=== PATIENT | female | born 1955 | race Caucasian/White ===

== ENCOUNTER 2021-06-24 00:04 | Day surgery (SDC) | payer OTHER, SELFPAY ==
[2021-06-14 14:46] VITALS: BMI 38.6
[2021-06-24 07:10] VITALS: BP 128/56; PULSE 67; RESP 18; TEMP 36.3; O2SAT 97; BMI 38.1
[2021-06-24] MEDS: LACTATED RINGERS 1,000 ML 150 ML IV CONT (07:18)
--- NOTE | 2021-06-24 07:53 | WPDGICN ---
Assessment and Plan Assessment and plan (1) Encounter for screening colonoscopy: Code(s): Z12.11 - Encounter for screening for malignant neoplasm of colon Status: Acute Assessment and Plan: Patient presents for screening colonoscopy. She appears to be at average risk for colon polyps. Further recommendations will be given after endoscopy. GI Consult Note Consult date/time: 06/24/21 07:53 HPI: Yari Galvan is a 65 year old female Presents for screening colonoscopy. Patient's current weight appetite and bowel movements are normal. She denies abdominal pain. She has had no bleeding. Family history is noncontributory. She desires neoplasia screening. Review of Systems Review of Systems: All systems reviewed & are unremarkable except as noted in HPI and below PMFSH Past Medical History Medical History (Updated 06/24/21 @ 07:54 by Devan Luna MD) Body mass index (bmi) 39.0-39.9, adult (04/26/18) Elevated blood pressure reading in office without diagnosis of hypertension Hereditary spherocytosis Family History Family History Father Family history of emphysema Social History Social History Smoking status: Never smoker Alcohol intake: never Substance use: never Substance use type: does not use Living arrangements: with family Gender identity (if verbalized by the patient): Female Sexual Orientation (if Verbalized by the Patient): Straight or Heterosexual Spiritual care concerns: No Meds Home Medications and Allergies Home Medications Medication Instructions Recorded Confirmed Type modafinil 200 mg tablet 200 mg PO BID 30 Days #60 tablet 06/08/21 06/14/21 Rx Allergies Allergy/AdvReac Type Severity Reaction Status Date / Time clindamycin Allergy C Diff Verified 06/14/21 14:45 Vital Signs Vital Signs - 24 hr 06/24/21 07:10 Temperature 97.4 F L Pulse Rate 67 Respiratory Rate 18 Blood Pressure 128/56 L Pulse Oximetry 97 Exam Narrative: Physical exam reveals patient be alert. Vital signs stable. HEENT exam is unremarkable. Patient is anicteric. Lungs are clear to auscultation and percussion. Heart is without murmur or extra sounds. Abdominal exam bowel sounds are present soft nontender with no hepatosplenomegaly. Digital external rectal exam is normal.
--- NOTE | 2021-06-24 07:53 | WPDANESEPPF ---
Anes - Initial Pre Proc Eval Procedure: Operation Date: 06/24/21 08:00 Proposed Procedures p Screening Colonoscopy - Devan Luna MD Date/Time: 06/24/21 07:53 Surgeon: Devan Luna MD Pre Op Diagnosis: neoplasm screening Patient Data Age: 65 Gender: F Height: 1.68 m Weight: 107.1 kg Last Vital Signs Temp 97.4 F L 06/24/21 07:10 Pulse 67 06/24/21 07:10 Resp 18 06/24/21 07:10 BP 128/56 L 06/24/21 07:10 Pulse Ox 97 06/24/21 07:10 Allergies Allergy/AdvReac Type Severity Reaction Status Date / Time clindamycin Allergy C Diff Verified 06/14/21 14:45 Home Medications Medication Instructions Recorded Confirmed Type modafinil 200 mg tablet 200 mg PO BID 30 Days #60 tablet 06/08/21 06/14/21 Rx Patient hx anesthesia problems: none Family hx anesthesia problems: none Results Review: All pre-operative results and documents have been reviewed as part of the pre-operative evaluation. [facility] Past Medical History Medical History (Updated 06/24/21 @ 07:54 by Devan Luna MD) Body mass index (bmi) 39.0-39.9, adult (04/26/18) Elevated blood pressure reading in office without diagnosis of hypertension Hereditary spherocytosis Family History Family History Father Family history of emphysema Social History Social History Smoking status: Never smoker Alcohol intake: never Substance use: never Substance use type: does not use Living arrangements: with family Gender identity (if verbalized by the patient): Female Sexual Orientation (if Verbalized by the Patient): Straight or Heterosexual Spiritual care concerns: No Anes - Eval Final PreProcedure Day of Procedure 06/24/21 07:53 Patient weight: obese Heart: regular rate and rhythm Lungs: clear to auscultation Airway: Mallampati scale class III Neurological: alert and oriented Last oral intake: >/= 8 hours ASA classification: II Emergent: no Anesthetic plan: proceed Anesthesia type and monitoring: general GIVS and standard monitoring Results Review: All pre-operative results and documents have been reviewed as part of the pre-operative evaluation. Informed Consent: The patient's anesthetic plan and its attendant risks and benefits were discussed with the patient/family/POA. Questions were solicited and answers provided to the satisfaction of the patient/family/POA.
[2021-06-24 08:18] VITALS: BP 122/69; PULSE 61; RESP 14; O2SAT 97
[2021-06-24 08:28] VITALS: BP 139/76; PULSE 72; RESP 23; O2SAT 100
[2021-06-24 08:38] VITALS: BP 142/79; PULSE 67; RESP 22; O2SAT 99
== END 2021-06-24 08:45 | disposition home or self-care (01) ==
PROVIDERS: PCP Nurse Practitioner Family; Visit Provider Internal Medicine Gastroenterology
PROC: 0DJD8ZZ Inspection of Lower Intestinal Tract, Via Natural or Artificial Opening Endoscopic (ICD-10-PCS; CPT 45378; principal; 2021-06-24 08:00)
DX: Z12.11 Encounter for screening for malignant neoplasm of colon (principal); K57.30 Diverticulosis of large intestine without perforation or abscess without bleeding; D58.0 Hereditary spherocytosis; E66.9 Obesity, unspecified; Z68.38 Body mass index [BMI] 38.0-38.9, adult
CPT/HCPCS: 45378; J2704; J7120

== ENCOUNTER 2022-07-11 22:02 | Inpatient (IN) | payer OTHER, SELFPAY ==
--- NOTE | ~2022-07-11 | XR_ITS ---
EXAMINATION: XR chest 1V portable Exam Date/Time: 07/11/2022 22:50 BREAKER HAND HISTORY: CP Comparison: 03/10/2010. RESULT: Lines, tubes, and devices: None. Lungs and pleura: Mild senescent change. Streaky bibasilar opacities likely representing atelectasis . Cardiomediastinal silhouette: Stable. Other: No acute osseous or upper abdominal finding. IMPRESSION: No acute cardiopulmonary process. Reviewed, dictated and finalized at location K. KER HAND
--- NOTE | ~2022-07-11 | CT_ITS ---
EXAMINATION: CTA chest PE protocol DATE: 07/12/2022 14:36 INDICATION: Chest pain TECHNIQUE: Computed tomography angiography (CTA) of the chest was performed with 100 mL Omnipaque-350 intravenous contrast timed to evaluate the pulmonary arteries. Coronal maximum intensity projection 3D-reconstructions were created by the technologist. The dose-length product (DLP) was 449.52 mGy-cm. Automated exposure control and iterative reconstruction technique were employed. COMPARISON: 04/13/2010 FINDINGS: The pulmonary arteries are well-opacified. No pulmonary embolism is identified. There is mi ld atelectasis. Cardiomegaly is noted. No pleural effusion or pneumothorax. There are minimal depende nt airspace opacities of the lower lobes. There is a small pericardial effusion. There is a small sli ding hiatal hernia. There is moderate thoracic spondylosis. IMPRESSION: 1. No pulmonary embolus identified. 2. Dependent airspace opacities of the lower lobes, consistent with atelectasis versus pneumonia. Reviewed, dictated and finalized at location L. MINER OPERATOR
[2022-07-11 22:03] VITALS: BP 138/71; PULSE 105; RESP 24; TEMP 36.4; O2SAT 96
--- NOTE | 2022-07-11 22:10 | ECG_ITS ---
Measurements Intervals [place] Rate: 116 P: IN: 0 QRS: 23 QRSD: 86 T: 37 QT: 312 QTc: 434 Interpretive Statements ATRIAL FIBRILLATION WITH RAPID VENTRICULAR RESPONSE SEPTAL MYOCARDIAL INFARCTION , PROBABLY OLD [40+ ms Q WAVE IN V1/V2] NO PREVIOUS ECG AVAILABLE FOR COMPARISON Electronically Signed On 07-12-2022 16:17:11 TREATING ENGINEER by Sonia Joya M.D.
[2022-07-11 22:26] VITALS: BP 97/69; PULSE 119; RESP 22; O2SAT 94
[2022-07-11 22:32] VITALS: O2SAT 97
[2022-07-11 22:43] LABS: Basophils Absolute Auto 0.1 K/mm3 (0.0-0.1); Basophils Percent Auto 0.7 % (0.2-1.2); Eosinophils Absolute Auto 0.5 K/mm3 (0-0.3); Hemoglobin 14.1 g/dL (12.0-15.0); Immature Granulocyte Absolute 0.05 K/mm3 (0.00-0.031); Immature Granulocyte Percent A 0.3 % (0-0.5); Immature Platelet Fraction Pct 5.3 % (0.9-11.2); Lymphocytes Absolute Auto 3.94 K/mm3 (0.9-3.2); Mean Corpuscular HGB Conc 34.4 g/dl (32-36); Mean Corpuscular Hemoglobin 31.1 pg (26-34); Mean Corpuscular Volume 90.5 fl (80-100); Monocytes Absolute Auto 1.1 K/mm3 (0.1-0.6); Neutrophils Absolute Auto 9.6 K/mm3 (1.3-6.7); Platelet Count Result 548 k/mm3 (150-375); Red Blood Count 4.53 M/mm3 (4.2-5.4); White Blood Count 15.2 K/mm3 (4.5-10.0)
[2022-07-11 22:53] LABS: INR 1.3; Prothrombin Time 15.6 Seconds (11.1-14.7)
[2022-07-11 22:54] LABS: Alanine Aminotransferase 33 U/L (6-35); Albumin Level 4.1 g/dL (3.5-5.1); Alkaline Phosphatase 131 U/L (38-126); Anion Gap 4 mmol/L (8-16); Aspartate Amino Transferase 39 U/L (14-36); Bilirubin,Total 0.7 mg/dL (0.2-1.3); Blood Urea Nitrogen 27 mg/dL (7-17); Calcium 9.1 mg/dL (8.4-10.2); Carbon Dioxide 28 mmol/L (22-30); Chloride 105 mmol/L (98-107); Estimated CRCL calculation 62 ml/min; Estimated Glomerular Filt Rate > 60; Glucose 134 mg/dL (65-110); Lipase 131 U/L (23-300); Partial Thromboplastin Time 28.3 SECONDS (22.3-36.8); Sodium 137 mmol/L (137-145)
[2022-07-11] MEDS: ASPIRIN 81 MG CHEWABLE TABLET 324 MG PO (22:57)
[2022-07-11 22:59] VITALS: BP 73/39; PULSE 105; RESP 24; O2SAT 92
[2022-07-11 23:03] LABS: Acanthocytes 2+ (NORMAL); Platelet Estimate Increased (Adequate)
[2022-07-11 23:04] LABS: Anisocytosis 1+ (NORMAL); Atypical Lymphocytes Present; Poikilocytosis 1+ (NORMAL); Schistocytes None Seen (NORMAL)
[2022-07-11] MEDS: SODIUM CHLORIDE 0.9% IV 1,000 ML 999 ML IV CONT (23:05)
[2022-07-11 23:06] VITALS: BP 94/67; PULSE 106; RESP 22; O2SAT 93
[2022-07-11 23:06] LABS: Troponin I < 0.012 ng/mL (0.000-0.034)
--- NOTE | 2022-07-11 23:07 | PC.NURSE ---
2257- oxygen saturation dropped to 89%, blood pressure dropped to 73/39. 2L nasal cannula applied 2303- oxygen increased to 3L nasal cannula, saturation maintaining 93-95%. Blood pressure 94/67. Order for metoprolol held d/t low blood pressure.
[2022-07-11 23:10] LABS: Magnesium 2.3 mg/dL (1.6-2.3)
[2022-07-11 23:44] LABS: Influenza A QL RT-PCR Negative (Negative); Influenza B QL RT-PCR Negative (Negative); SARS-CoV-2 RNA PCR Negative
[2022-07-11 23:48] VITALS: BP 109/64; PULSE 86; RESP 24; O2SAT 98
[2022-07-12] VITALS (28 sets, daily range): BP systolic 97–131; BP diastolic 60–88; PULSE 83–136; RESP 16–22; TEMP 36.4–36.6; O2SAT 91–97; BMI 37.5
[2022-07-12] MEDS: MORPHINE SULFATE (*CRX) 2 MG/ML INJ IV PUSH (00:25)
[2022-07-12 01:36] LABS: Troponin I < 0.012 ng/mL (0.000-0.034)
--- NOTE | 2022-07-12 02:21 | ED.GENADULT ---
HPI - General Adult General Chief complaint: Chest Pain Stated complaint: chest pain Time Seen by Provider: 07/11/22 22:28 History of Present Illness HPI narrative: Patient is a 67-year-old female who presents emerged department with chief complaint of chest pain shortness of breath and cough. The patient also reports that her she has history of A-fib and has noticed that her heart rate has been up a little bit. Related Data Allergies Allergy/AdvReac Type Severity Reaction Status Date / Time clindamycin Allergy C Diff Verified 05/11/22 15:28 Review of Systems Review of Systems: A 10 system review of systems was completed on the patient and is negative except for what is stated in the HPI. Nursing and ancillary documentation was reviewed. [facility] Past Medical History Medical History Body mass index (bmi) 39.0-39.9, adult (04/26/18) Elevated blood pressure reading in office without diagnosis of hypertension Hereditary spherocytosis Family History Family History Father Family history of emphysema Social History Social History Smoking status: Never smoker Alcohol intake: never Substance use: never Substance use type: does not use Lack of Transportation: No Lack of Food: Never True Current Housing: I Have Housing Concerned About Future Housing: No Difficulty Paying Gas/Electric Bills: No Difficulty Paying for Meds: No Currently Unemployed: No Education: High School Diploma/GED Difficulty w/ Childcare or Family Care: No Living arrangements: with family Gender identity (if verbalized by the patient): Female Sexual Orientation (if Verbalized by the Patient): Straight or Heterosexual Spiritual care concerns: No Exam Narrative: GENERAL: Well-appearing, well-nourished, and in no acute distress. HEAD: Normocephalic, atraumatic. EYES: PERRLA and EOMI. ENT: Nares clear, no rhinorrhea or epistaxis. Mucous membranes moist. NECK: Supple. CHEST: Clear to auscultation. No respiratory distress. HEART: Tachycardic irregularly irregular rate and rhythm. No murmur heard. Normal peripheral pulses. ABDOMEN: Soft, nontender, nondistended, normal active bowel sounds. EXTREMITIES: Normal range of motion. No edema. SKIN: Warm, dry, no rash. NEURO: No focal deficits. Alert and oriented x3. PSYCH: Normal mood and affect. Course Vital Signs Vital signs: Vital Signs Temperature 36.4 C 07/11/22 22:03 Pulse Rate 105 H 07/11/22 22:03 Respiratory Rate 24 H 07/11/22 22:03 Blood Pressure 138/71 07/11/22 22:03 Pulse Oximetry 96 07/11/22 22:03 Oxygen Delivery Room Air 07/11/22 22:03 Temperature 36.4 C 07/11/22 22:03 Pulse Rate 128 H 07/12/22 02:48 Respiratory Rate 20 07/12/22 02:42 Blood Pressure 97/62 L 07/12/22 02:42 Pulse Oximetry 96 07/12/22 02:42 Oxygen Delivery Room Air 07/12/22 00:30 Medical Decision Making MDM Narrative Medical decision making narrative: EKG is atrial fibrillation with a rate of [address] elevation or ST depression Patient had 2 negative sets of troponins in the emergency department the patient was negative for COVID flu laboratory studies showed a normal white blood cell count. Patient does report that she has had a significant cough its been nonproductive patient does have a white blood cell count of 15.2. Chest x-ray shows no focal infiltrate. Most likely patient's pain is secondary to pleurisy secondary to viral bronchitis. Patient also did have an elevated heart rate that was contributing to things with her atrial fibrillation. Prior to discharge the patient's heart rate jumped back up in the 120s with any kind of standing or ambulation. Patient was given additional metoprolol and further discussion with the family they were very concerned
--- NOTE | 2022-07-12 02:39 | PC.NURSE ---
Entered pt's room with discharge papers. Pt's heart rate on bleach plant operator shows rate between 120-130bpm. Dr. Taylor notified and instructed this RN to wait 5 minutes and reassess. Pt has no complaints at this time.
[2022-07-12] MEDS: METOPROLOL TARTRATE 25 MG TABLET PO ×3 (02:48→16:04)
[2022-07-12] MEDS: SODIUM CHLORIDE 0.9% IV 1,000 ML 999 ML IV CONT (03:24)
--- NOTE | 2022-07-12 03:31 | PC.NURSE ---
Upon reassessment, pt's heart rate increased to 128 when she sat up on the side of the bed. Dr. Taylor notified. Order for IV fluids given. Called pt's with updates. Informed him pt is receiving IV fluids and we will reassess to see how pt feels. Pt's wants to know why pt isn't being admitted. Informed Dr. Taylor.
--- NOTE | 2022-07-12 03:49 | ECHO_ITS ---
Patient Info Name: Yari Galvan Age: 67 years : 1955 Gender: Female Ht: 65 in Wt: 225 lbs BSA: 2.21 m2 HR: 96 bpm BP: 131 / 66 mmHg Heart Rhythm: Atrial Fibrillation Exam Date: 07/12/2022 9:51 AM Exam Location: [facility] Patient Status: Outpatient Admit Date: 07/12/2022 Staff Ordering Physician: Lakhwinder Khoury M.A., MD Gre Instructor: Zoila Park RDCS Attending Provider: Lakhwinder Khoury M.A., MD Referring Physician: Ramesh BOYD; Exam Type: CA echo dop color flow w con Study Info Indications R07.9 - Chest pain, unspecified Complete two-dimensional, color flow and Doppler transthoracic echocardiogram is performed with contrast to opacify the left ventricle and to improve the deliniation of the left ventricle endocardial borders. Contrast/Agitated Saline Contrast/Ag. Saline: Definity Amount: 3.00 ml Administered By: Zoila Park RDCS Existing IV Access: Yes IV Access Condition: patent with no signs of infiltration Summary 1. Normal left ventricular size and thickness with good systolic function of all segments. Ejection fraction 65-70%. Normal diastolic function. 2. Left atrial chamber dimension is moderately enlarged. 3. No pulmonary hypertension, estimated pulmonary arterial systolic pressure is 31 mmHg. 4. No significant valve disease. 5. Dilated inferior vena cava with <50% collapse upon inspiration consistent with significantly elevated right atrial pressure, 10 mmHg. 6. There is small posterior pericardial effusion, 0.6-1.0 cm thick, with no tamponade physiology. 7. Atrial fibrillation. Left Ventricle Left ventricular chamber dimension is normal. Left ventricular systolic function is normal, estimated at 65-70%. There is no increased left ventricular wall thickness. Left ventricular septal wall motion is normal. The left ventricular diastolic function is normal. Right Ventricle Right ventricular chamber dimension is normal. Right ventricular systolic function is normal. Left Atria Left atrial chamber dimension is moderately enlarged. Right Atria Right atrial chamber dimension is normal. Aortic Valve The aortic valve is trileaflet. There is no aortic valve sclerosis. There is no aortic valve stenosis. There is no aortic valve regurgitation. Pulmonic Valve The pulmonic valve is normal. There is no pulmonic valve stenosis. There is trace pulmonic regurgitation. Mitral Valve The mitral valve has normal leaflets. There is no mitral valve stenosis. There is trace mitral valve regurgitation. Tricuspid Valve The tricuspid valve leaflets are normal. There is no significant tricuspid valve stenosis. There is trace tricuspid valve regurgitation. No pulmonary hypertension, estimated pulmonary arterial systolic pressure is 31 mmHg. Pericardium/Pleural The pericardium appears normal. There is small posterior pericardial effusion, 0.6-1.0 cm thick, with no tamponade physiology. Inferior Vena Cava Dilated inferior vena cava with <50% collapse upon inspiration consistent with significantly elevated right atrial pressure, 10 mmHg. Aorta The aortic root size at the sinus of Valsalva is normal. The prox ascending aorta size is normal. Left Ventricular Outflow Tract Name Value Normal
--- NOTE | 2022-07-12 03:52 | PM.IMHP ---
H&P: HPI History of Present Illness Date/Time: 07/12/22 03:52 Chief Complaint: 67 years old female with past medical history of recent diagnosis of AFib started on aspirin Eliquis and beta-tez, narcolepsy and obstructive sleep apnea on modafinil and CPAP presented to the hospital with chest pain dull in nature aggravated with laying on the side and activity radiating to the neck of sudden onset associated with shortness of breath associated with intermittent cough and wheeze patient denies fever or chills at the ER patient was found to have AFib with RVR probable bronchitis serial troponin was negative patient continued to have episodes of AFib with RVR despite metoprolol patient was admitted to the hospital for further evaluation and treatment Review of Systems Review of Systems: Twelve system review was done negative except above [facility] Past Medical History Medical History Body mass index (bmi) 39.0-39.9, adult (04/26/18) Elevated blood pressure reading in office without diagnosis of hypertension Hereditary spherocytosis Family History Family History Father Family history of emphysema Social History Social History Smoking status: Never smoker Alcohol intake: never Substance use: never Substance use type: does not use Lack of Transportation: No Lack of Food: Never True Current Housing: I Have Housing Concerned About Future Housing: No Difficulty Paying Gas/Electric Bills: No Difficulty Paying for Meds: No Currently Unemployed: No Education: High School Diploma/GED Difficulty w/ Childcare or Family Care: No Living arrangements: with family Gender identity (if verbalized by the patient): Female Sexual Orientation (if Verbalized by the Patient): Straight or Heterosexual Spiritual care concerns: No Meds Home Medications and Allergies Home Medications Medication Instructions Recorded Confirmed Type modafinil 200 mg tablet 200 mg PO BID 1 month #60 tabs 06/24/22 Rx benzonatate 200 mg capsule 200 mg PO TID PRN cough #21 caps 07/12/22 Rx hydrocodone 5 mg-acetaminophen 325 1 tablet PO Q6H PRN pain 3 days 07/12/22 Rx mg tablet #12 tabs Allergies Allergy/AdvReac Type Severity Reaction Status Date / Time clindamycin Allergy C Diff Verified 05/11/22 15:28 Vital Signs Vital Signs - 24 hr 07/11/22 22:03 07/11/22 22:26 07/11/22 22:32 Temperature 97.6 F Pulse Rate 105 H 119 H Respiratory Rate 24 H 22 H Blood Pressure 138/71 97/69 L Pulse Oximetry 96 94 97 Oxygen Delivery Room Air Room Air 07/11/22 22:59 07/11/22 23:06 07/11/22 23:48 Temperature Pulse Rate 105 H 106 H 86 Respiratory Rate 24 H 22 H 24 H Blood Pressure 73/39 L 94/67 L 109/64 Pulse Oximetry 92 93 98 Oxygen Delivery 07/12/22 00:30 07/12/22 01:08 07/12/22 02:26 Temperature Pulse Rate 98 111 H Respiratory Rate 20 20 Blood Pressure 116/88 103/81 Pulse Oximetry 97 93 92 Oxygen Delivery Room Air 07/12/22 02:42 07/12/22 02:48 Temperature Pulse Rate 121 H 128 H Respiratory Rate 20 Blood Pressure 97/62 L Pulse Oximetry 96 Oxygen Delivery Exam Narrative: GENERAL: Well appearing, well-nourished, non-toxic, in no acute distress. HEAD: Normocephalic, atraumatic. NECK: Supple. No adenopathy, no masses. RESPIRATORY: Scattered wheeze. CARDIOVASCULAR: Regular rate and rhythm without murmurs, rubs, or gallops. Peripheral pulses 2+ and equal bilaterally. ABDOMINAL: Soft, nontender, nondistended, no hepatosplenomegaly. Normoactive BS. MUSCULOSKELETAL: Moves all extremities. Strength/ROM intact without gross deformities or TTP. No edema. No calf tenderness. No chest wall tenderness palpation. SKIN: Warm, dry, normal color. No rashes. NEURO: A&O X3. Speech clear. Cranial nerves II-XII grossly i
[2022-07-12 04:18] LABS: Basophils Absolute Auto 0.1 K/mm3 (0.0-0.1); Basophils Percent Auto 0.4 % (0.2-1.2); Eosinophils Absolute Auto 0.1 K/mm3 (0-0.3); Eosinophils Percent Auto 0.4 % (0-4.4); Hematocrit 35.8 % (37.0-47.0); Hemoglobin 11.8 g/dL (12.0-15.0); Immature Granulocyte Absolute 0.06 K/mm3 (0.00-0.031); Immature Granulocyte Percent A 0.4 % (0-0.5); Lymphocytes Absolute Auto 1.59 K/mm3 (0.9-3.2); Lymphocytes Percent Auto 11.4 % (18.3-44.2); Mean Corpuscular Hemoglobin 30.1 pg (26-34); Mean Corpuscular Volume 91.3 fl (80-100); Mean Platelet Volume 9.7 fl (7.4-10.4); Monocytes Absolute Auto 0.8 K/mm3 (0.1-0.6); Monocytes Percent Auto 5.9 % (2.6-8.5); Neutrophils Absolute Auto 11.4 K/mm3 (1.3-6.7); Neutrophils Percent Auto 81.5 % (45.5-73.1); Platelet Count Result 456 k/mm3 (150-375); Red Blood Count 3.92 M/mm3 (4.2-5.4); Red Cell Distribution Width 14.1 % (11.5-14.5)
[2022-07-12] MEDS: cefTRIAXone 2 GM in SODIUM CHLORIDE 0.9% IV 100 ML 200 ML IVPB ×2 (04:19→20:39)
[2022-07-12 04:36] LABS: Alanine Aminotransferase 31 U/L (6-35); Albumin Level 3.3 g/dL (3.5-5.1); Alkaline Phosphatase 97 U/L (38-126); Anion Gap 3 mmol/L (8-16); Aspartate Amino Transferase 31 U/L (14-36); Bilirubin,Total 0.7 mg/dL (0.2-1.3); Blood Urea Nitrogen 23 mg/dL (7-17); Carbon Dioxide 29 mmol/L (22-30); Chloride 107 mmol/L (98-107); Estimated CRCL calculation 69 ml/min; Estimated Glomerular Filt Rate > 60; Glucose 123 mg/dL (65-110); Potassium 4.3 mmol/L (3.4-5.0); Sodium 139 mmol/L (137-145)
[2022-07-12 04:39] LABS: Platelet Estimate Adequate (Adequate)
[2022-07-12 04:40] LABS: Anisocytosis 2+ (NORMAL); Microcytosis 2+ (NORMAL); Schistocytes None Seen (NORMAL)
[2022-07-12 04:47] LABS: Troponin I < 0.012 ng/mL (0.000-0.034)
--- NOTE | 2022-07-12 04:55 | ADMGEN ---
This patient, Yari Galvan, was admitted to IMU Room 214-01. Patient/family oriented to hospital policies and general routines including ID bracelet, bed and alarms, visiting hours, pain management, procedures, bathroom and other care routines, personal items, smoking policy, room service/diet, and visiting hours. Information on how to activate the Rapid Response Team has been discussed. Patient/Family are encouraged to report perceived risks to care and to ask questions if they do not understand what they are told or what they should do.
[2022-07-12] MEDS: SODIUM CHLORIDE 0.9% IV 1,000 ML 100 ML IV CONT ×2 (04:59→16:04)
[2022-07-12] MEDS: ACETAMINOPHEN 325 MG TABLET 650 MG PO (05:00)
[2022-07-12 05:49] LABS: D Dimer 0.77 ug/mL (<0.48)
[2022-07-12 05:52] LABS: Thyroid Stimulating Hormone Reflex 0.942 uIU/mL (0.465-4.68)
[2022-07-12] MEDS: IPRATROPIUM BR 0.02% INH SOLN 0.5 MG/2.5 ML VIAL INHALATION ×3 (07:20→21:33)
[2022-07-12] MEDS: PANTOPRAZOLE SODIUM IV 40 MG VIAL IV PUSH ×2 (09:21→16:05)
[2022-07-12] MEDS: ASPIRIN 81 MG ENTERIC TABLET PO (09:23)
[2022-07-12] MEDS: APIXABAN 5 MG TABLET PO ×2 (09:23→20:38)
[2022-07-12] MEDS: PERFLUTREN LIPID MICROSPHERES 1.5 ML VIAL DILUTED TO 10 ML TOTAL VOLUME IV PUSH (10:30)
--- NOTE | 2022-07-12 10:30 | IVDEFINITY ---
Prior to administration of IV Definity the patient was educated on the risks and benefits of the imaging enhancing agent including potential adverse side effects. The patient verbalized understanding. Allergies were verified. No exclusion criteria were identified and at least one of the following inclusion criteria were met: 1) physician request, 2) patient technically difficult to image (per the [place] [employer]chocardi[employer] guidelines of two or more segments not discernable within the apical view), or 3) questionable left ventricular function. ?
--- NOTE | 2022-07-12 10:30 | PM.CNCAR ---
Assessment and Plan Assessment and plan (1) Atrial fibrillation: Code(s): I48.91 - Unspecified atrial fibrillation Status: Acute Assessment and Plan: Patient with persistent atrial fibrillation of recent onset, started on metoprolol and Eliquis a couple weeks ago, but still with an elevated heart rate response at times. The patient does have a few rales but does not complain of any shortness of breath. Chest x-ray did not show any CHF. E showed normal LV function, small pericardial effusion. CT showed atelectasis versus pneumonia, small pericardial effusion. --Counseled pt and family re: atrial fib, causes, treatment, etc. --increase metoprolol dose -- check proBNP --continue anticoagulation with Eliquis. --doubt need for aspirin --YOCASTA cardioversion tmr? (Has not been anticoagulated for adequate time, needs YOCASTA) --Pt has appt to see Dr. Mcfadden as new pt in July; discussed w/ him, he will FU w/ her as scheduled. (2) Acute chest wall pain: Code(s): R07.89 - Other chest pain Status: Acute Assessment and Plan: Chest shoulder and jaw pain, possible angina but, in view of its pleuritic component onset at rest, likely musculoskeletal. Troponins all negative an EKG does not show any acute changes. --eventual ischemia workup, probably a stress test as an outpatient (3) Acute bronchitis, viral: Code(s): J20.8 - Acute bronchitis due to other specified organisms Status: Acute Assessment and Plan: Treatment per hospitalist (4) Pericardial effusion: Code(s): I31.39 - Other pericardial effusion (noninflammatory) Status: Acute Assessment and Plan: small pericardial effusion, pleuritic chest pain, possible pericarditis related to viral infection. History of pericarditis when young. -- Check sed rate, rheumatoid factor, ANNE -- add colchicine and a short course of ibuprofen, add PPI. (5) APRYL (obstructive sleep apnea): Code(s): G47.33 - Obstructive sleep apnea (adult) (pediatric) Status: Acute Assessment and Plan: Follows with Jorge A Rolon. (6) Pericarditis: Code(s): I31.9 - Disease of pericardium, unspecified Status: Acute History of Present Illness History of Present Illness Consult date/time: 07/12/22 10:30 Reason For Visit: Chest Pain,Atrial Fibrillation,Bronchitis Narrative: Kevin Galvan ([birth year] ) is a 67-year-old white female whom we were asked to see at the request of Dr. Apoorva Khoury for advice and opinion regarding her chest pain, in consultation. She has a history of atrial fibrillation (Treated with metoprolol succinate 50 mg daily, aspirin and Eliquis), narcolepsy, and APRYL on CPAP. About 1 month ago Ms. Galvan developed problems with a respiratory infection with congestion, cough, and also w/ pains in the right side of her chest, then left side, and when the pain involved her jaw and shoulders she was sure this was heart pain so went to an Urgent Care. They recommended she go to the ER. However, the pains subsided and she elected not to go. She saw her PCP Lalita Lowery on Jun 30 and her EKg apparently showed a fib rate 148 BPM. She did fairly well after that with no further chest discomfort, but yesterday she woke up from a nap with chest pain, shoulder pain and jaw pain. It ?hurt. ? Somewhat pleuritic, were supine. Not much SOB, never had palpitations. She came to the emergency room for evaluation. The patient was admitted through the emergency room with AFib RVR and probable bronchitis. Her AFib in the emergency room was 116 to 120s, although variable. Troponins are negative x3. Telemetry shows AFib heart rate now around 100 taking metoprolol tartrate 25 mg b.i.d.. Prior to 1 month ago the patient was having some problems with insurance and stamina but no TOBAR or chest pains. She has had some swelling intermittently. She has sleep apnea but has been off of her CPAP waiting for a new
[2022-07-12] MEDS: IBUPROFEN 400 MG TABLET PO (20:38)
[2022-07-12] MEDS: COLCHICINE 0.6 MG TABLET PO (20:38)
[2022-07-12] MEDS: METOPROLOL TARTRATE 12.5 MG TABLET 37.5 MG PO (20:39)
[2022-07-13] VITALS (31 sets, daily range): BP systolic 100–147; BP diastolic 63–87; PULSE 66–114; RESP 12–24; TEMP 36.3–37.2; O2SAT 92–97
[2022-07-13] MEDS: SODIUM CHLORIDE 0.9% IV 1,000 ML 100 ML IV CONT (02:35)
[2022-07-13] MEDS: IPRATROPIUM BR 0.02% INH SOLN 0.5 MG/2.5 ML VIAL INHALATION ×2 (03:23→20:30)
[2022-07-13] MEDS: IBUPROFEN 400 MG TABLET PO ×2 (05:12→16:28)
[2022-07-13 06:15] LABS: Basophils Absolute Auto 0.1 K/mm3 (0.0-0.1); Basophils Percent Auto 0.7 % (0.2-1.2); Eosinophils Absolute Auto 0.4 K/mm3 (0-0.3); Eosinophils Percent Auto 3.4 % (0-4.4); Hemoglobin 11.4 g/dL (12.0-15.0); Immature Granulocyte Absolute 0.04 K/mm3 (0.00-0.031); Immature Granulocyte Percent A 0.3 % (0-0.5); Lymphocytes Absolute Auto 3.29 K/mm3 (0.9-3.2); Mean Corpuscular HGB Conc 32.6 g/dl (32-36); Mean Corpuscular Hemoglobin 30.6 pg (26-34); Mean Corpuscular Volume 94.1 fl (80-100); Mean Platelet Volume 10.4 fl (7.4-10.4); Monocytes Absolute Auto 1.3 K/mm3 (0.1-0.6); Monocytes Percent Auto 10.8 % (2.6-8.5); Neutrophils Absolute Auto 6.7 K/mm3 (1.3-6.7); Neutrophils Percent Auto 56.8 % (45.5-73.1); Platelet Count Result 440 k/mm3 (150-375); Red Blood Count 3.72 M/mm3 (4.2-5.4); Red Cell Distribution Width 14.8 % (11.5-14.5); White Blood Count 11.8 K/mm3 (4.5-10.0)
[2022-07-13 06:30] LABS: Alanine Aminotransferase 33 U/L (6-35); Alkaline Phosphatase 94 U/L (38-126); Anion Gap 0 mmol/L (8-16); Aspartate Amino Transferase 36 U/L (14-36); Bilirubin,Total 0.7 mg/dL (0.2-1.3); Blood Urea Nitrogen 13 mg/dL (7-17); Carbon Dioxide 29 mmol/L (22-30); Chloride 106 mmol/L (98-107); Estimated CRCL calculation 69 ml/min; Estimated Glomerular Filt Rate > 60; Glucose 97 mg/dL (65-110); Potassium 3.8 mmol/L (3.4-5.0); Sodium 135 mmol/L (137-145)
[2022-07-13 06:34] LABS: NT Pro B Type Natriuretic Pept 1560 pg/mL (19.9-100)
[2022-07-13 06:36] LABS: Rheumatoid Factor < 12.0 IU/ML (<12)
[2022-07-13 06:49] LABS: Erythrocyte Sedimentation Rate 40 mm/hr (0-20)
[2022-07-13] MEDS: COLCHICINE 0.6 MG TABLET PO ×2 (08:55→20:27)
[2022-07-13] MEDS: APIXABAN 5 MG TABLET PO ×2 (08:55→20:27)
[2022-07-13] MEDS: METOPROLOL TARTRATE 12.5 MG TABLET 37.5 MG PO ×2 (08:55→20:27)
[2022-07-13] MEDS: PANTOPRAZOLE 40 MG TABLET PO (08:56)
--- NOTE | 2022-07-13 09:35 | ECG_ITS ---
Measurements Intervals [place] Rate: 106 P: CA: 0 QRS: 34 QRSD: 92 T: -4 QT: 313 QTc: 417 Interpretive Statements ATRIAL FIBRILLATION WITH RAPID VENTRICULAR RESPONSE ABNORMAL RHYTHM ECG COMPARED TO ECG 07/11/2022 22:15:09 NO SIGNIFICANT CHANGES Electronically Signed On 07-13-2022 15:28:56 REPORT DEVELOPER by Sonia Joya M.D.
--- NOTE | 2022-07-13 09:46 | PM.IMPN ---
Progress Note: A&P Assessment and Plan (1) Atrial fibrillation: Code(s): I48.91 - Unspecified atrial fibrillation Status: Acute Assessment and Plan: Check magnesium TSH echo Start metoprolol p.o. Added p.r.n. metoprolol Aspirin (2) Acute chest wall pain: Code(s): R07.89 - Other chest pain Status: Acute Assessment and Plan: Rule out ACS serial cardiac marker ECG telemonitor echo results: Unremarkable Continue aspirin and beta-tez CT scan of the chest ruled out PE (3) Acute bronchitis, viral: Code(s): J20.8 - Acute bronchitis due to other specified organisms Status: Acute Assessment and Plan: Probably viral COVID-19 was negative Patient has leukocytosis Will get blood culture Start empiric IV antibiotics Follow culture results (4) APRYL (obstructive sleep apnea): Code(s): G47.33 - Obstructive sleep apnea (adult) (pediatric) Status: Acute Assessment and Plan: Resume home CPAP (5) Narcolepsy: Qualifiers: 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 HEAD: Normocephalic, atraumatic. NECK: Supple. No adenopathy, no masses. RESPIRATORY: Scattered wheeze. CARDIOVASCULAR: Regular rate and rhythm without murmurs, rubs, or gallops. Peripheral pulses 2+ and equal bilaterally. ABDOMINAL: Soft, nontender, nondistended, no hepatosplenomegaly. Normoactive BS. MUSCULOSKELETAL: Moves all extremities. Strength/ROM intact without gross deformities or TTP. No edema. No calf tenderness. No chest wall tenderness palpation. SKIN: Warm, dry, normal color. No rashes. NEURO: A&O X3. Speech clear. Cranial nerves II-XII grossly intact. Steady gait. No ataxic movements. PSYCHIATRIC: Appropriate mood and affect. Normal interaction. Objective Data Vital Signs Vital Signs: Vital Signs - 24 hr 07/12/22 11:54 02/14/23 10:00 07/12/22 12:00 Temperature 97.8 F Pulse Rate 83 95 92 Respiratory Rate 22 H Blood Pressure 121/84 Pulse Oximetry 93 Oxygen Delivery Oxygen Flow Rate 07/12/22 13:15 07/12/22 13:20 07/12/22 12:00 Temperature Pulse Rate 86 88 Respiratory Rate 18 18 Blood Pressure Pulse Oximetry Oxygen Delivery Room Air Oxygen Flow Rate 07/12/22 16:04 07/12/22 16:00 07/12/22 16:00 Temperature 97.9 F Pulse Rate 107 H 117 H Respiratory Rate 16 Blood Pressure 120/82 Pulse Oximetry 92 Oxygen Delivery Room Air Oxygen Flow Rate 07/12/22 14:00 07/12/22 16:00 07/12/22 18:00 Temperature Pulse Rate 91 115 H 109 H Respiratory Rate Blood Pressure Pulse Oximetry Oxygen Delivery Oxygen Flow Rate 07/12/22 20:39 07/12/22 20:45 07/12/22 21:34 Temperature 97.9 F Pulse Rate 119 H 118 H 101 H Respiratory Rate 19 18 Blood Pressure 111/79 Pulse Oximetry 92 Oxygen Delivery Oxygen Flow Rate 07/12/22 21:42 07/12/22 20:00 07/12/22 22:00 Temperature Pulse Rate 99 136 H 95 Respiratory Rate 18 Blood Pressure Pulse Oximetry Oxygen Delivery Oxygen Flow Rate 07/12/22 20:00 07/12/22 23:49 07/13/22 00:00 Temperature 97.7 F Pulse Rate 88 Respiratory Rate 20 Blood Pressure 101/60 Pulse Oximetry 92 93 93 Oxygen Delivery Nasal Cannula Nasal Cannula Oxygen Flow Rate 2 2 07/13/22 00:00 07/13/22 03:23 07/13/22 03:30 Temperature Pulse Rate 83 95 97 Respiratory Rate 16 16 Blood Pressure Pulse Oximetry Oxygen Delivery Oxygen Flow Rate 07/13/22 04:00 07/13/22 02:00 07/13/22 04:00 Temperature Pulse Rat
--- NOTE | 2022-07-13 10:03 | P.HPUP_ITS ---
History and Physical Update Update Date/Time: 07/13/22 10:03 Patient admitted with AFib RVR. Also bronchitis and pericarditis. Has been on anticoagulation but only for about 2 weeks. Planning a YOCASTA guided cardioversion. History and Physical has been reviewed, including an updated exa m of the patient. Patient's congestion and pleuritic chest pain have improved, otherwise NO changes in the patient's condition. Risks, benefits, and alternatives have been discussed and questions answered. Patient agrees to proceed with procedure.
--- NOTE | 2022-07-13 10:04 | WPDMODSED ---
Moderate Sedation Note-Pt Data Patient Data Diagnosis: AFib RVR, recent onset, bronchitis, pericarditis. Also history of esophageal dilatation; denies any problems swallowing recently. Present Complaint: AFib RVR Procedure to be performed/Plan: Conscious sedation Transesophageal ECHO Cardioversion Allergies Allergy/AdvReac Type Severity Reaction Status Date / Time clindamycin Allergy C Diff Verified 07/12/22 04:18 Home Medications Medication Instructions Recorded Confirmed Type modafinil 200 mg tablet 200 mg PO BID 1 month #60 tabs 06/24/22 07/12/22 Rx apixaban 5 mg tablet (Eliquis) 5 mg PO BID 07/12/22 07/12/22 History aspirin 81 mg tablet,delayed 81 mg PO DAILY 07/12/22 07/12/22 History release benzonatate 200 mg capsule 200 mg PO TID PRN cough #21 caps 07/12/22 Rx metoprolol succinate 50 mg 50 mg PO DAILY 07/12/22 07/12/22 History tablet,extended release 24 hr Current Medications: Active Medications Acetaminophen (Acetaminophen 325 Mg Tablet) 650 mg PO Q6H PRN PRN Reason: Pain Rated 1-3 Last Admin: 07/12/22 05:00 Dose: 650 mg Albuterol (Albuterol Sulfate Neb 2.5 Mg/3 Ml Inh) 2.5 mg INHALATION Q6HRT PRN PRN Reason: Shortness Of Breath Apixaban (Apixaban 5 Mg Tablet) 5 mg PO Q12HR [facility] Last Admin: 07/13/22 08:55 Dose: 5 mg Colchicine (Colchicine 0.6 Mg Tablet) 0.6 mg PO Q12HR [facility] Last Admin: 07/13/22 08:55 Dose: 0.6 mg Fentanyl Citrate (Fentanyl Citrate Inj (*Crx) 100 Mcg/2 Ml Vial) 100 mcg IV PUSH ONCE PRN PRN Reason: Cardioversion/YOCASTA Ceftriaxone Sodium 2 gm/ (Sodium Chloride) 100 mls @ 200 mls/hr IVPB Q24H [facility] Stop: 07/17/22 21:59 Last Infusion: 07/12/22 21:09 Dose: Infused Sodium Chloride (Normal Saline Iv) 1,000 mls @ 100 mls/hr IV CONT .Q10H [facility] Last Admin: 07/13/22 02:35 Dose: 100 mls/hr Ibuprofen (Ibuprofen 400 Mg Tablet) 400 mg PO Q8HR [facility] Last Admin: 07/13/22 05:12 Dose: 400 mg Ipratropium Bailey (Ipratropium Br 0.02% Inh Soln 0.5 Mg/2.5 Ml Vial) 0.5 mg INHALATION Q6HRT [facility] Last Admin: 07/13/22 03:23 Dose: 0.5 mg Metoprolol Tartrate (Metoprolol Tartrate Inj 5 Mg/5 Ml Vial) 5 mg IV PUSH Q6H PRN PRN Reason: Tachycardia Metoprolol Tartrate (Metoprolol Tartrate 12.5 Mg Tablet) 37.5 mg PO Q12HR [facility] Last Admin: 07/13/22 08:55 Dose: 37.5 mg Midazolam HCl (Midazolam Hcl (*Crx) 2 Mg/2 Ml Vial) 2 mg IV PUSH Q5M PRN PRN Reason: Cardioversion/YOCASTA Morphine Sulfate (Morphine Sulfate (*Crx) 2 Mg/Ml Inj) 2 mg IV PUSH Q4H PRN PRN Reason: For pain 7-10 Nitroglycerin (Nitroglycerin Sl 0.4 Mg Tablet) 0.4 mg SUBLINGUAL Q5MIN PRN PRN Reason: Chest Pain Ondansetron HCl (Ondansetron Inj 4 Mg/2 Ml Vial) 4 mg IV PUSH Q6H PRN PRN Reason: Nausea And Vomiting Pantoprazole Sodium (Pantoprazole 40 Mg Tablet) 40 mg PO QAM [facility] Last Admin: 07/13/22 08:56 Dose: 40 mg Sedation/Anesthesia: No previous sedation/anesthesia problems (including family history). [facility] Past Medical History Medical History Body mass index (bmi) 39.0-39.9, adult (04/26/18) Elevated blood pressure reading in office without diagnosis of hypertension Esophageal stricture history of esophageal dilatation Hereditary spherocytosis Pericarditis Had pericarditis when young, and again in 06/2022. 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
--- NOTE | 2022-07-13 10:31 | ECG_ITS ---
Measurements Intervals [place] Rate: 65 P: 42 CT: 174 QRS: 24 QRSD: 88 T: 5 QT: 396 QTc: 415 Interpretive Statements SINUS RHYTHM COMPARED TO ECG 07/13/2022 09:35:00 SINUS RHYTHM NOW PRESENT Electronically Signed On 07-13-2022 15:29:39 CONCRETE BLOCK LAYER by Sonia Joya M.D.
--- NOTE | 2022-07-13 10:31 | PM.OP ---
Procedure Note - Brief Procedure Note - Brief Date of procedure: 07/13/22 Pre-op diagnosis: Chest Pain,Atrial Fibrillation,Bronchitis Post-op diagnosis: Other (Successful cardioversion) Procedure performed: Conscious sedation Transesophageal echo Elective electrical cardioversion with 150 joules Description of procedure: Successful cardioversion to sinus rhythm Surgeon: Jaclyn Nesbitt MD Findings: Normal left ventricular function Mild mitral regurgitation Successful cardioversion from atrial fibrillation to sinus rhythm
--- NOTE | 2022-07-13 10:33 | P.PCNTEECA_ITS ---
YOCASTA with Cardioversion Date of procedure: 07/13/22 Procedure Type: CONSCIOUS SEDATION TRANSESOPHAGEAL ECHO ELECTIVE ELECTRICAL CARDIOVERSION Diagnosis: Atrial fibrillation RVR. Indications: The patient has recent onset AFib, with rapid ventricular response. She has had problems with a recent bronchitis as well as pleuritic chest pain due to pericarditis. She has been anticoagulated with Eliquis for only 2 weeks so I recommended proceeding with a transesophageal ECHO guided cardioversion. Description of Procedure: Conscious sedation: Assessment: The patient has no history of anesthesia problems. The patient's oropharynx is clear. The patient was deemed to be a good candidate for conscious sedation. The patient had continuous hemodynamic and oximetric monitoring during the procedure. Start time: 10:15 a.m. Completion time: 10:32 a.m. Total conscious sedation time: 17 minutes Medications Used: Versed 2 mg, fentanyl 75 mcg IV push Trained observer: Swathi Andrade RN Outcome: The patient tolerated the procedure well with no complications. Procedure: After informed consent the patient had viscous lidocaine gargle and Hurricaine spray the hypopharynx. The patient had conscious sedation as described above. The transesophageal echo probe was introduced in the esophagus without difficulty. Imaging was obtained in multiplane views. Unable to easily pass the scope into the stomach so did not obtained transgastric views. She has a history of esophageal stricture and dilatation. The patient tolerated the procedure well with no complications. Findings: The left atrium was mildly enlarged. There were prominent back in a muscles, but there is no thrombus present in the left atrium or left atrial appendage. The atrial septum appeared intact. Mitral valve appeared normal, with no stenosis or prolapse. The left ventricle had had normal size and thickness with good contractility of all segments. The ejection fraction is estimated to be: 60-65%. The aortic root and valve were normal. The ascending aorta, aortic arch and descending thoracic aorta (as far as it could be visualized) were normal. The right atrium, tricuspid valve, right ventricle, pulmonic valve and pulmonic artery were all normal. There is a small posterior pericardial effusion. Colorflow Doppler Findings: Mild mitral and mildtricuspid regurgitation. Cardioversion: After informed consent and the above conscious sedation, the patient underwent elective electrical synchronized cardioversion with 150 joules of biphasic energy and converted to normal sinus rhythm. There were no complications. Sedation: As above Findings: Normal left ventricular systolic function No thrombus present in the left atrium or left atrial appendage Mild mitral and tricuspid regurgitation Small pericardial effusion Conclusion: Successful cardioversion to sinus rhythm Plan: Continue Eliquis Continue metoprolol, change to metoprolol succinate 75 mg daily tomorrow. Continue short-term ibuprofen and probably 2 months of colchicine for viral pericarditis Follow-up with Dr. Mcfadden on discharge
[2022-07-13] MEDS: guaiFENesin/CODEINE (*CRX) 200/20 MG 10 ML SYRUP PO (16:28)
[2022-07-14] VITALS (24 sets, daily range): BP systolic 100–137; BP diastolic 52–73; PULSE 69–88; RESP 18–56; TEMP 35.9–36.5; O2SAT 92–99
[2022-07-14] MEDS: IBUPROFEN 400 MG TABLET PO ×3 (00:03→18:46)
[2022-07-14] MEDS: guaiFENesin/CODEINE (*CRX) 200/20 MG 10 ML SYRUP PO ×3 (00:03→18:44)
[2022-07-14] MEDS: IPRATROPIUM BR 0.02% INH SOLN 0.5 MG/2.5 ML VIAL INHALATION ×4 (02:19→21:39)
[2022-07-14 05:28] LABS: Basophils Absolute Auto 0.1 K/mm3 (0.0-0.1); Basophils Percent Auto 0.6 % (0.2-1.2); Eosinophils Absolute Auto 0.5 K/mm3 (0-0.3); Eosinophils Percent Auto 4.1 % (0-4.4); Hematocrit 31.4 % (37.0-47.0); Hemoglobin 10.3 g/dL (12.0-15.0); Immature Granulocyte Absolute 0.04 K/mm3 (0.00-0.031); Immature Granulocyte Percent A 0.3 % (0-0.5); Lymphocytes Absolute Auto 2.96 K/mm3 (0.9-3.2); Lymphocytes Percent Auto 22.7 % (18.3-44.2); Mean Corpuscular HGB Conc 32.8 g/dl (32-36); Mean Corpuscular Hemoglobin 30.1 pg (26-34); Mean Corpuscular Volume 91.8 fl (80-100); Monocytes Absolute Auto 1.5 K/mm3 (0.1-0.6); Monocytes Percent Auto 11.7 % (2.6-8.5); Neutrophils Absolute Auto 7.9 K/mm3 (1.3-6.7); Neutrophils Percent Auto 60.6 % (45.5-73.1); Platelet Count Result 396 k/mm3 (150-375); Red Blood Count 3.42 M/mm3 (4.2-5.4); Red Cell Distribution Width 14.3 % (11.5-14.5)
[2022-07-14 05:58] LABS: Alanine Aminotransferase 43 U/L (6-35); Alkaline Phosphatase 103 U/L (38-126); Anion Gap 0 mmol/L (8-16); Aspartate Amino Transferase 40 U/L (14-36); Bilirubin,Total 0.7 mg/dL (0.2-1.3); Blood Urea Nitrogen 11 mg/dL (7-17); Calcium 8.2 mg/dL (8.4-10.2); Carbon Dioxide 28 mmol/L (22-30); Chloride 105 mmol/L (98-107); Estimated CRCL calculation 59 ml/min; Estimated Glomerular Filt Rate > 60; Glucose 101 mg/dL (65-110); Sodium 133 mmol/L (137-145)
[2022-07-14 06:28] LABS: Burr Cells 1+ (NORMAL); Large Platelets Present; Schistocytes None Seen (NORMAL)
--- NOTE | 2022-07-14 09:23 | PM.IMPN ---
Progress Note: A&P Assessment and Plan (1) Atrial fibrillation: Code(s): I48.91 - Unspecified atrial fibrillation Status: Acute Assessment and Plan: Cardioversion to sinus rhythm Appreciate cardiology's recommendation Continue Eliquis Continue metoprolol, change to metoprolol succinate 75 mg daily .? Continue short-term ibuprofen and probably 2 months of colchicine for viral pericarditis Follow-up with Dr. Mcfadden on discharge (2) Acute chest wall pain: Code(s): R07.89 - Other chest pain Status: Acute Assessment and Plan: Rule out ACS serial cardiac marker ECG telemonitor echo results: Unremarkable Continue aspirin and beta-tez CT scan of the chest ruled out PE (3) Acute bronchitis, viral: Code(s): J20.8 - Acute bronchitis due to other specified organisms Status: Acute Assessment and Plan: Possible atypical pneumonia versus acute bacterial bronchitis, patchy infiltrates bilateral lower lobes on CT Patient has leukocytosis t blood culture no growth for Start Levaquin IV Follow culture results (4) APRYL (obstructive sleep apnea): Code(s): G47.33 - Obstructive sleep apnea (adult) (pediatric) Status: Acute Assessment and Plan: Resume home CPAP (5) Narcolepsy: Qualifiers: 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 Patient denies palpitation, chest pain Exam Narrative: GENERAL: Well appearing, well-nourished, non-toxic, in no acute distress. HEAD: Normocephalic, atraumatic. NECK: Supple. No adenopathy, no masses. RESPIRATORY: No wheezing, coarse breath sounds CARDIOVASCULAR: Regular rate and rhythm without murmurs, rubs, or gallops. Peripheral pulses 2+ and equal bilaterally. ABDOMINAL: Soft, nontender, nondistended, no hepatosplenomegaly. Normoactive BS. MUSCULOSKELETAL: Moves all extremities. Strength/ROM intact without gross deformities or TTP. No edema. No calf tenderness. No chest wall tenderness palpation. SKIN: Warm, dry, normal color. No rashes. NEURO: A&O X3. Speech clear. Cranial nerves II-XII grossly intact. Steady gait. No ataxic movements. PSYCHIATRIC: Appropriate mood and affect. Normal interaction. Objective Data Vital Signs Vital Signs: Vital Signs - 24 hr 07/13/22 09:36 07/13/22 10:15 07/13/22 10:20 Temperature Pulse Rate 111 H 94 93 Respiratory Rate 23 H 15 20 Blood Pressure 112/81 123/85 119/83 Pulse Oximetry 93 96 95 Oxygen Delivery Room Air Nasal Cannula Nasal Cannula Oxygen Flow Rate 3 3 07/13/22 10:10 07/13/22 10:25 07/13/22 10:30 Temperature Pulse Rate 101 H 93 66 Respiratory Rate 22 H 20 12 Blood Pressure 119/84 131/81 120/84 Pulse Oximetry 96 94 94 Oxygen Delivery Nasal Cannula Nasal Cannula Nasal Cannula Oxygen Flow Rate 3 3 3 07/13/22 12:00 07/13/22 14:14 07/13/22 16:00 Temperature 97.3 F L 99 F Pulse Rate 75 93 Respiratory Rate 16 24 H Blood Pressure 105/67 147/87 H Pulse Oximetry 94 92 95 Oxygen Delivery Room Air Oxygen Flow Rate 07/13/22 10:35 07/13/22 10:50 07/13/22 11:05 Temperature Pulse Rate 66 71 68 Respiratory Rate 16 18 16 Blood Pressure 107/70 108/65 100/72 Pulse Oximetry 94 92 92 Oxygen Delivery Nasal Cannula Nasal Cannula Nasal Cannula Oxygen Flow Rate 3 2 2 07/13/22 11:20 07/13/22 11:35 07/13/22 16:00 Temperature 98.1 F Pulse Rate 69 68 91 Respiratory Rate 16 18 Blood Pressure 113/71 108/63 Pulse Oximetry 92 93 Oxygen Delivery Room Air Room Air Oxygen Flow Rate 07/13/22 12:00 07/13/22 14:00 07/13/22 18:00 Temperature Pulse
[2022-07-14] MEDS: COLCHICINE 0.6 MG TABLET PO ×2 (09:53→22:03)
[2022-07-14] MEDS: PANTOPRAZOLE 40 MG TABLET PO (09:53)
[2022-07-14] MEDS: APIXABAN 5 MG TABLET PO ×2 (09:53→22:03)
[2022-07-14] MEDS: METOPROLOL SUCCINATE EXT REL 25 MG, METOPROLOL SUCCINATE EXT REL 50 MG 75 MG PO (09:54)
[2022-07-14] MEDS: ALBUTEROL SULFATE NEB 2.5 MG/3 ML INH INHALATION (21:39)
[2022-07-15] VITALS (19 sets, daily range): BP systolic 108–120; BP diastolic 59–74; PULSE 65–84; RESP 16–20; TEMP 36.2–36.7; O2SAT 92–95
[2022-07-15] MEDS: IBUPROFEN 400 MG TABLET PO ×2 (02:41→09:41)
[2022-07-15 05:01] LABS: Hematocrit 30.9 % (37.0-47.0); Hemoglobin 10.2 g/dL (12.0-15.0); Immature Platelet Fraction Pct 6.5 % (0.9-11.2); Mean Corpuscular Volume 90.9 fl (80-100); Mean Platelet Volume 10.2 fl (7.4-10.4); Platelet Count Result 413 k/mm3 (150-375); White Blood Count 12.4 K/mm3 (4.5-10.0)
[2022-07-15 05:11] LABS: Alanine Aminotransferase 44 U/L (6-35); Albumin Level 3.1 g/dL (3.5-5.1); Alkaline Phosphatase 113 U/L (38-126); Anion Gap 2 mmol/L (8-16); Aspartate Amino Transferase 39 U/L (14-36); Bilirubin,Total 0.7 mg/dL (0.2-1.3); Blood Urea Nitrogen 10 mg/dL (7-17); Calcium 8.2 mg/dL (8.4-10.2); Carbon Dioxide 29 mmol/L (22-30); Chloride 107 mmol/L (98-107); Estimated CRCL calculation 74 ml/min; Estimated Glomerular Filt Rate > 60; Glucose 107 mg/dL (65-110); Potassium 3.4 mmol/L (3.4-5.0); Sodium 138 mmol/L (137-145)
[2022-07-15 06:01] LABS: Band Neutrophils Percent 6 % (0-6); Eosinophils Absolute Manual 0.86 K/mm3 (0.02-0.5); Eosinophils Percent Manual 7 % (0-4); Large Platelets Present; Lymphocytes Absolute Manual 2.23 K/mm3 (1.1-4.5); Metamyelocytes Percent 1 %; Monocytes Absolute Manual 0.62 K/mm3 (0.1-0.90); Monocytes Percent Manual 5 % (3-9); Myelocytes Percent 1 %; Neutrophils Absolute Manual 8.43 K/mm3 (1.7-7.2); Neutrophils Percent Manual 62 % (46-73); Nucleated Red Blood Cells 1 %; Platelet Estimate Adequate (Adequate); Total Cells Counted 100
[2022-07-15 06:02] LABS: Acanthocytes 3+ (NORMAL); Atypical Lymphocytes Present; Burr Cells 1+ (NORMAL); Crenated RBC 2+ (NORMAL); Poikilocytosis 3+ (NORMAL); Schistocytes None Seen (NORMAL); Smudge Cells PRESENT
[2022-07-15 06:03] LABS: Hypochromasia 1+ (NORMAL); Microcytosis 3+ (NORMAL)
[2022-07-15] MEDS: IPRATROPIUM BR 0.02% INH SOLN 0.5 MG/2.5 ML VIAL INHALATION ×2 (08:57→14:24)
[2022-07-15] MEDS: ALBUTEROL SULFATE NEB 2.5 MG/3 ML INH INHALATION (08:57)
[2022-07-15] MEDS: APIXABAN 5 MG TABLET PO (09:41)
[2022-07-15] MEDS: PANTOPRAZOLE 40 MG TABLET PO (09:41)
[2022-07-15] MEDS: COLCHICINE 0.6 MG TABLET PO (09:41)
[2022-07-15] MEDS: METOPROLOL SUCCINATE EXT REL 25 MG, METOPROLOL SUCCINATE EXT REL 50 MG 75 MG PO (09:41)
--- NOTE | 2022-07-15 10:31 | HOMEO2EVAL ---
Evaluation was performed at [facility] Home Oxygen Evaluation RC: Home Oxygen (O2) Evaluation Start: 07/15/22 08:52 Freq: ONCE Status: Active Protocol: RPE Activity Type Activity Date Activity User E-sign Co-sign Detail Recorded Client Recorded Date Recorded By Document 07/15/22 10:15 KHOI [id number] 07/15/22 10:31 KHOI Document 07/15/22 10:20 KHOI [id number] 07/15/22 10:31 KHOI Document 07/15/22 10:25 [email or web address] [id number] 07/15/22 10:31 KHOI 07/15/22 07/15/22 07/15/22 10:15 10:20 10:25 Home O2 Evaluation [Oxygen] -Test Phase Resting Exercise Resting -Oxygen Delivery Room Air Room Air Room Air [Pulse Oximetry] -Pulse Oximetry (90-100 %) 95 92 95 [Comments] -Home Oxygen Evaluation Comments no home o2 needed [Charges] -Treatment Charges O2 Evaluation - Inpatient
--- NOTE | 2022-07-15 10:31 | PCRCNOTE ---
Home O2 eval done, no home O2 needed at this time
--- NOTE | 2022-07-15 14:23 | PM.DS ---
DS: Admitting Diagnosis Discharge Date today Admitting Diagnosis AFib RVR DS: Discharge Diagnosis Discharge Diagnosis (1) Pericarditis: Code(s): I31.9 - Disease of pericardium, unspecified Status: Acute (2) Atrial fibrillation: Code(s): I48.91 - Unspecified atrial fibrillation Status: Acute (3) Acute bronchitis, viral: Code(s): J20.8 - Acute bronchitis due to other specified organisms Status: Acute (4) Atypical pneumonia: Code(s): J18.9 - Pneumonia, unspecified organism Status: Acute (5) APRYL (obstructive sleep apnea): Code(s): G47.33 - Obstructive sleep apnea (adult) (pediatric) Status: Acute DS: Summary Hospital Course Reason for hospitalization: AFib RVR Hospital Course: 67 years old female with past medical history of recent diagnosis of AFib started on aspirin Eliquis and beta-tez, narcolepsy and obstructive sleep apnea on modafinil and CPAP presented to the hospital with chest pain dull in nature aggravated with laying on the side and activity radiating to the neck of sudden onset associated with shortness of breath associated with intermittent cough and wheeze patient denies fever or chills at the ER patient was found to have AFib with RVR probable bronchitis serial troponin was negative patient continued to have episodes of AFib with RVR despite metoprolol patient was admitted to the hospital for further evaluation and treatment. During hospitalization, AFib with electively cardioverted to sinus rhythm. And suspecting pericarditis, patient has been given ibuprofen and colchicine p.o., chest pain resolves. And during hospitalization, patient is also found to have atypical pneumonia. Patient has received Levaquin and IV. Currently patient is afebrile, hemodynamically stable, short of breath has being improving significantly. No O2 desaturation. Patient will be discharged home with metoprolol 75 mg daily p.o., Eliquis 5 mg b.i.d. p.o., ibuprofen and colchicine for 2 months per car carder recommendation. Patient will continue Levaquin 500 mg daily p.o. for 5 more days. Mycoplasma and Legionella test are pending. Patient will follow-up with primary care doctor in 1 week and car carder on scheduled appointment Time Spent with Patient Time attestation: Total time spent providing and/or coordinating discharge services: Exam Narrative: GENERAL: Pleasant, in no acute distress. Well-nourished. - EYES: EOMI. Anicteric. - HENT: Moist mucous membranes. - LUNGS: Clear to auscultation bilaterally, no wheezing, rhonchi, or rales. - CARDIOVASCULAR: Regular rate and rhythm. No murmur. No JVD. - ABDOMEN: Soft, non-tender and non-distended. No palpable masses. - EXTREMITIES: No edema. Peripheral pulses 2+. Non-tender. - NEUROLOGIC: No focal neurological deficits. CN II-XII grossly intact. - PSYCHIATRIC: Awake, Alert and oriented x 3. Appropriate mood and affect. - SKIN: No rashes or lesions. Warm. - LYMPH: No cervical lymphadenopathy. DS: Data Data Completed and Pending Labs on day of discharge: Labs from last 24 hours 07/15/22 07/15/22 04:31 04:31 WBC 12.4 H RBC 3.40 L Hgb 10.2 L Hct 30.9 L MCV 90.9 MCH 30.0 MCHC 33.0 RDW 14.0 Plt Count 413 H MPV 10.2 Immature Gran % (Auto) Not Reportable Neut % (Auto) Not Reportable Lymph % (Auto) Not Reportable [place] % (Auto) Not Reportable Eos % (Auto) Not Reportable Baso % (Auto) Not Reportable Lymph # (Auto) Not Reportable [place] # (Auto) Not Reportable Eos # (Auto) Not Reportable Baso # (Auto) Not Reportable Abs Immat Gran (auto) Not Reportable Absolute Neuts (auto) Not Reportable Absolute Nucleated RBC Not Reportable Total Counted 100 Neutrophils % (Manual) 62 Band Neutrophils % 6 Lymphocytes % (Manual) 18.0 Monocytes % (Manual) 5 Eosinophils % (Manual) 7 H Metamyelocytes % 1 Myelocytes % 1 Nucleated RBC % Not Reportable Abs Neuts (Man
[2022-07-15 20:20] LABS: Pneumococcal Antigen Urine Not Detected (Not Detected)
[2022-07-15 20:38] LABS: Mycoplasma IgM Antibody Titer 164 U/mL (<770)
[2022-07-18 04:30] LABS: Legionella pneumophila Ag Ur Not Detected (Not Detected)
== END 2022-07-15 17:00 | disposition home or self-care (01) | DRG 308 ==
LOC: ANHED 07-12 03:39 → ANHIMU 07-12 04:09
PROVIDERS: Internal Medicine Cardiovascular Disease; Admitting Provider Internal Medicine; Emergency Provider Emergency Medicine; PCP Nurse Practitioner Family; Visit Provider Hospitalist
PROC: 5A2204Z Restoration of Cardiac Rhythm, Single (ICD-10-PCS; CPT 93312; principal; 2022-07-13 10:00)
PROC: 5A2204Z Restoration of Cardiac Rhythm, Single (ICD-10-PCS; 2022-07-13 10:00)
DX: I48.91 Unspecified atrial fibrillation (principal); J18.9 Pneumonia, unspecified organism; I31.9 Disease of pericardium, unspecified; J20.8 Acute bronchitis due to other specified organisms; R07.89 Other chest pain; G47.33 Obstructive sleep apnea (adult) (pediatric); G47.419 Narcolepsy without cataplexy; Z20.822 Contact with and (suspected) exposure to COVID-19; Z79.82 Long term (current) use of aspirin; Z79.01 Long term (current) use of anticoagulants; Z90.81 Acquired absence of spleen
CPT/HCPCS: 36415; 71045; 71275; 80053; 83690; 83735; 83880; 84443; 84484; 85025; 85055; 85380; 85610; 85652; 85730; 86038; 86430; 86738; 87040; 87449; 87636; 87899; 92960; 93005; 93312; 93320; 93325; 94618; 94640; 96361; 96365; 96366; 96367; 96375; 96376; 99285; A9270; C8929; C9113; G0378; J0696; J1956; J2250; J2270; J7030; Q9957; Q9967

== ENCOUNTER 2022-07-19 13:30 | Observation (INO) | payer OTHER, SELFPAY ==
[2022-07-19] VITALS (34 sets, daily range): BP systolic 103–159; BP diastolic 53–103; PULSE 82–133; RESP 16–32; TEMP 36.2–36.9; O2SAT 90–98; BMI 36.6
--- NOTE | ~2022-07-19 | XR_ITS ---
XR chest 2V 07/19/2022 13:59 Indication: Chest palpitations. Atrial fibrillation. Procedure: PA and lateral views of the chest Comparison: 07/11/2022 Findings: Cardiomegaly. Right basilar infiltrates may represent atelectasis or pneumonia. No signific ant effusion. No edema. The lungs are hyperinflated which is consistent with, but not diagnostic of c hronic obstructive pulmonary disease. No pneumothorax. Impression: 1: Right basilar infiltrates, atelectasis versus pneumonia. Reviewed, dictated and finalized at location [facility] Impression: 1: Right basilar infiltrates, atelectasis versus pneumonia.
--- NOTE | 2022-07-19 13:36 | ECG_ITS ---
Measurements Intervals [place] Rate: 121 P: [place]: 0 QRS: 17 QRSD: 82 T: 0 QT: 258 QTc: 367 Interpretive Statements ATRIAL FIBRILLATION WITH RAPID VENTRICULAR RESPONSE ANTEROSEPTAL MYOCARDIAL INFARCTION , OF INDETERMINATE AGE [40+ ms Q WAVE IN V1-V4] NONSPECIFIC T WAVE ABNORMALITY Abnormal ecg COMPARED TO ECG 07/13/2022 10:36:46 ATRIAL FIBRILLATION NOW PRESENT MYOCARDIAL INFARCT FINDING NOW PRESENT Electronically Signed On 07-20-2022 13:01:43 CLINICAL NURSE EDUCATOR by Mickey Street M.D.
--- NOTE | 2022-07-19 13:39 | ED.ARRPALP ---
HPI - Arrhythmia/Palpitations General Chief Complaint: Arrhythmia/Palpitations Stated Complaint: A-fib RVR Time Seen by Provider: 07/19/22 13:39 Source: patient Mode of arrival: ambulatory Limitations: no limitations History of Present Illness HPI narrative: 67 years old white female with history of narcolepsy and atrial fibrillation on Eliquis. Had cardiogenic shock last week converted to normal sinus rhythm. Been having chest pain, slight shortness of breath, radiation to shoulders 2 to 3 days ago, her watch told her that she have A-fib with RVR, saw her marketing researcher today who referred her to our emergency room for further evaluation. EKG on arrival to the ED showed A-fib with RVR at 121 bpm, anteroseptal myocardial infarction of indeterminate age, abnormal EKG. Related Data Home Medications Medication Instructions Recorded Confirmed apixaban 5 mg tablet (Eliquis) 5 mg PO BID 07/12/22 07/12/22 aspirin 81 mg tablet,delayed 81 mg PO DAILY 07/12/22 07/12/22 release Allergies Allergy/AdvReac Type Severity Reaction Status Date / Time clindamycin Allergy C Diff Verified 07/12/22 04:18 Review of Systems Review of Systems: All systems reviewed & are unremarkable except as noted in HPI and below PMFSH Past Medical History Medical History Body mass index (bmi) 39.0-39.9, adult (04/26/18) Elevated blood pressure reading in office without diagnosis of hypertension Esophageal stricture history of esophageal dilatation Hereditary spherocytosis Pericarditis Had pericarditis when young, and again in 06/2022. 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 hereditary spherocytosis Family History Family History Father Family history of emphysema Mother Lymphoma Macula lutea degeneration Acute rheumatoid arthritis Sibling Atrial fibrillation Cerebrovascular accident Social History Social History Smoking status: Never smoker Alcohol intake: former Substance use: never Substance use type: does not use Lack of Transportation: No Lack of Food: Never True Current Housing: I Have Housing Concerned About Future Housing: No Difficulty Paying Gas/Electric Bills: No Difficulty Paying for Meds: No Currently Unemployed: No Education: High School Diploma/GED Difficulty w/ Childcare or Family Care: No Living arrangements: with family Gender identity (if verbalized by the patient): Female Sexual Orientation (if Verbalized by the Patient): Straight or Heterosexual Spiritual care concerns: No Course Vital Signs Vital signs: Vital Signs Temperature 36.7 C 07/19/22 13:35 Pulse Rate 133 H 07/19/22 13:35 Respiratory Rate 16 07/19/22 13:35 Blood Pressure 109/72 07/19/22 13:35 Pulse Oximetry 94 07/19/22 13:35 Oxygen Delivery Room Air 07/19/22 13:35 Temperature 36.7 C 07/19/22 13:35 Pulse Rate 133 H 07/19/22 13:35 Respiratory Rate 16 07/19/22 13:35 Blood Pressure 109/72 07/19/22 13:35 Pulse Oximetry 94 07/19/22 13:35 Oxygen Delivery Room Air 07/19/22 13:35 MDM - Arrhythmia/Palpitations MDM Narrative Medical decision making narrative: 67 years old white female presents with A-fib with RVR. Status post cardioversion 1 week ago. Currently on Eliquis. Patient was referred to our emergency room by her marketing researcher for further management. Cardizem 15 mg IV bolus, Cardizem 5 mg IV drip, gradual improvement of the heart rate, currently less than 100 bpm Labs, EKG, chest x-ray ordered. EKG showed A-fib with RVR at 121 bpm, chest x-ray showed no acute abnormality, INR of 1.7, troponin within normal limit Patient will be admitted to IMU for further management. Discussed with marketing researcher. And the hospitalist Differential Diagno
[2022-07-19 13:53] LABS: Basophils Absolute Auto 0.1 K/mm3 (0.0-0.1); Basophils Percent Auto 0.8 % (0.2-1.2); Eosinophils Absolute Auto 0.2 K/mm3 (0-0.3); Eosinophils Percent Auto 1.1 % (0-4.4); Hematocrit 37.7 % (37.0-47.0); Hemoglobin 12.7 g/dL (12.0-15.0); Immature Granulocyte Absolute 0.05 K/mm3 (0.00-0.031); Immature Granulocyte Percent A 0.4 % (0-0.5); Immature Platelet Fraction Pct 7.3 % (0.9-11.2); Lymphocytes Absolute Auto 2.45 K/mm3 (0.9-3.2); Lymphocytes Percent Auto 18.1 % (18.3-44.2); Mean Corpuscular HGB Conc 33.7 g/dl (32-36); Mean Corpuscular Hemoglobin 30.1 pg (26-34); Mean Corpuscular Volume 89.3 fl (80-100); Mean Platelet Volume 10.4 fl (7.4-10.4); Monocytes Absolute Auto 2.1 K/mm3 (0.1-0.6); Monocytes Percent Auto 15.2 % (2.6-8.5); Neutrophils Absolute Auto 8.7 K/mm3 (1.3-6.7); Neutrophils Percent Auto 64.4 % (45.5-73.1); Platelet Count Result 558 k/mm3 (150-375); Red Blood Count 4.22 M/mm3 (4.2-5.4); White Blood Count 13.5 K/mm3 (4.5-10.0)
[2022-07-19 14:03] LABS: Alanine Aminotransferase 61 U/L (6-35); Albumin Level 3.9 g/dL (3.5-5.1); Alkaline Phosphatase 197 U/L (38-126); Anion Gap 5 mmol/L (8-16); Aspartate Amino Transferase 40 U/L (14-36); Blood Urea Nitrogen 14 mg/dL (7-17); Calcium 8.9 mg/dL (8.4-10.2); Carbon Dioxide 26 mmol/L (22-30); Chloride 102 mmol/L (98-107); Estimated CRCL calculation 75 ml/min; Estimated Glomerular Filt Rate > 60; Glucose 104 mg/dL (65-110); Lipase 57 U/L (23-300); Sodium 133 mmol/L (137-145)
[2022-07-19 14:04] LABS: INR 1.7; Prothrombin Time 19.7 Seconds (11.1-14.7)
[2022-07-19] MEDS: ASPIRIN 81 MG CHEWABLE TABLET 324 MG PO (14:05)
[2022-07-19] MEDS: dilTIAZem HCl INJ 25 MG/5 ML VIAL 15 MG IV PUSH (14:05)
[2022-07-19 14:06] LABS: Partial Thromboplastin Time 42.4 SECONDS (22.3-36.8)
[2022-07-19] MEDS: dilTIAZem 100 MG/100 ML 100 MG/100 ML BAG IV CONT (14:06)
[2022-07-19 14:15] LABS: Troponin I < 0.012 ng/mL (0.000-0.034)
[2022-07-19 14:30] LABS: Influenza A QL RT-PCR Negative (Negative); Influenza B QL RT-PCR Negative (Negative); SARS-CoV-2 RNA PCR Negative
[2022-07-19 14:36] LABS: Anisocytosis 1+ (NORMAL); Band Neutrophils Percent 3 % (0-6); Eosinophils Absolute Manual 0.27 K/mm3 (0.02-0.5); Eosinophils Percent Manual 2 % (0-4); Lymphocytes Absolute Manual 2.83 K/mm3 (1.1-4.5); Monocytes Absolute Manual 2.02 K/mm3 (0.1-0.90); Monocytes Percent Manual 15 % (3-9); Neutrophils Absolute Manual 8.37 K/mm3 (1.7-7.2); Neutrophils Percent Manual 59 % (46-73); Platelet Estimate Increased (Adequate); Poikilocytosis 1+ (NORMAL); Schistocytes None Seen (NORMAL); Total Cells Counted 100
[2022-07-19 15:12] LABS: NT Pro B Type Natriuretic Pept 3160 pg/mL (19.9-100)
[2022-07-19 17:09] LABS: Troponin I < 0.012 ng/mL (0.000-0.034)
--- NOTE | 2022-07-19 18:44 | ADMGEN ---
This patient, Yari Galvan, was admitted to IMU Room 202-01. Patient/family oriented to hospital policies and general routines including ID bracelet, bed and alarms, visiting hours, pain management, procedures, bathroom and other care routines, personal items, smoking policy, room service/diet, and visiting hours. Information on how to activate the Rapid Response Team has been discussed. Patient/Family are encouraged to report perceived risks to care and to ask questions if they do not understand what they are told or what they should do.
[2022-07-19 20:11] LABS: Troponin I < 0.012 ng/mL (0.000-0.034)
--- NOTE | 2022-07-19 22:00 | PM.IMHP ---
H&P: HPI History of Present Illness Date/Time: 07/19/22 22:00 Chief Complaint: AFib/RVR. Narrative: This is a 67-year-old female with paroxysmal atrial fibrillation on chronic anticoagulation, obstructive sleep apnea on CPAP, and narcolepsy who presented to the emergency department from her traveling representative's office after she was found to be in atrial fibrillation with rapid ventricular response. Patient provides the following history. She was recently admitted to the hospital with pericarditis and atrial fibrillation with rapid ventricular response. She was started on and remains on colchicine and ibuprofen with improvement. She underwent cardioversion on 07/13/2022 with muslim of sinus rhythm and she was discharged home 2 days thereafter. Since that time she has been wearing a Fitbit to monitor her heart rate and it has been erratic and fast the last couple of days however she is asymptomatic with that. She spoke with Dr. Nesbitt is office and was told to increase her metoprolol though that had no effect on her heart rate. She went in today for evaluation, was found to be in atrial fibrillation with a rate in the 130s and she was directed to the ER. She has since been started on a Cardizem drip with improvement her rate though she remains in AFib. At the time of my evaluation she is resting comfortably and has no complaints. She denies syncope, near syncope, chest pain, sensations of racing heart, fluttering, shortness of breath, nausea, vomiting, and sweats. No significant alcohol or caffeine use. No history of thyroid disease. States compliance with CPAP. Review of Systems Review of Systems: Twelve systems were reviewed and are negative except for as per HPI. [facility] Past Medical History Medical History (Updated 07/19/22 @ 23:19 by Josefina Daniel PA-C) Chronic anticoagulation Esophageal stricture History of esophageal dilatation. Hereditary spherocytosis Narcolepsy Obstructive sleep apnea on CPAP Paroxysmal atrial fibrillation Pericarditis Had pericarditis when young, and again in 06/2022. 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 Family History Family History Father Family history of emphysema Mother Lymphoma Macula lutea degeneration Acute rheumatoid arthritis Sibling Atrial fibrillation Cerebrovascular accident Social History Social History (Updated 07/19/22 @ 23:14 by Josefina Daniel PA-C) Social History: Surrogate medical decision maker: Nav Galvan, spouse. Code status: Full code. Smoking status: Never smoker Alcohol intake: former Substance use: never Substance use type: does not use Lack of Transportation: No Lack of Food: Never True Current Housing: I Have Housing Concerned About Future Housing: No Difficulty Paying Gas/Electric Bills: No Difficulty Paying for Meds: No Currently Unemployed: No Education: High School Diploma/GED Difficulty w/ Childcare or Family Care: No Living arrangements: with family Spiritual care concerns: No Meds Home Medications and Allergies Home Medications Medication Instructions Recorded Confirmed Type modafinil 200 mg tablet 200 mg PO BID 1 month #60 tabs 06/24/22 07/19/22 Rx apixaban 5 mg tablet (Eliquis) 5 mg PO BID 07/12/22 07/19/22 History aspirin 81 mg tablet,delayed 81 mg PO DAILY 07/12/22 07/19/22 History release benzonatate 200 mg capsule 200 mg PO TID PRN cough #21 caps 07/12/22 07/19/22 Rx colchicine 0.6 mg tablet (Colcrys) 0.6 mg PO Q12HR #60 tabs 07/15/22 07/19/22 Rx ibuprofen 400 mg tablet 400 mg PO Q8HR #90 tabs 07/15/22 07/19/22 Rx levofloxacin 500 mg tablet 500 mg PO DAILY #5 tabs 07/15/22 07/19/22 Rx pantoprazole 40 mg tablet,delayed 40 mg PO QAM #30 tabs 07/15/22 07/19/22 Rx release loratadine 10
[2022-07-19] MEDS: IBUPROFEN 400 MG TABLET PO (22:37)
[2022-07-19] MEDS: APIXABAN 5 MG TABLET PO (22:37)
[2022-07-20] VITALS (19 sets, daily range): BP systolic 95–130; BP diastolic 61–80; PULSE 76–113; RESP 15–23; TEMP 36.3–36.4; O2SAT 92–99
[2022-07-20 05:17] LABS: Alanine Aminotransferase 52 U/L (6-35); Albumin Level 3.4 g/dL (3.5-5.1); Alkaline Phosphatase 171 U/L (38-126); Anion Gap 2 mmol/L (8-16); Aspartate Amino Transferase 34 U/L (14-36); Bilirubin,Total 0.8 mg/dL (0.2-1.3); Blood Urea Nitrogen 14 mg/dL (7-17); Calcium 8.8 mg/dL (8.4-10.2); Carbon Dioxide 30 mmol/L (22-30); Chloride 103 mmol/L (98-107); Estimated CRCL calculation 69 ml/min; Estimated Glomerular Filt Rate > 60; Glucose 99 mg/dL (65-110); Magnesium 2.3 mg/dL (1.6-2.3); Potassium 3.8 mmol/L (3.4-5.0); Sodium 135 mmol/L (137-145)
--- NOTE | 2022-07-20 06:00 | ECG_ITS ---
Measurements Intervals [place] Rate: 94 P: [place]: 0 QRS: 26 QRSD: 89 T: 1 QT: 351 QTc: 441 Interpretive Statements ATRIAL FIBRILLATION SEPTAL MYOCARDIAL INFARCTION , OF INDETERMINATE AGE [40+ ms Q WAVE IN V1/V2] COMPARED TO ECG 07/19/2022 13:39:01 NO SIGNIFICANT CHANGES Electronically Signed On 07-20-2022 15:03:09 TRANSIT MAN by Sonia Joya M.D.
[2022-07-20] MEDS: IBUPROFEN 400 MG TABLET PO ×2 (06:30→13:14)
[2022-07-20] MEDS: METOPROLOL SUCCINATE EXT REL 100 MG TABCR PO (08:49)
[2022-07-20] MEDS: PANTOPRAZOLE 40 MG TABLET PO (08:49)
[2022-07-20] MEDS: COLCHICINE 0.6 MG TABLET PO (08:50)
[2022-07-20] MEDS: ASPIRIN 81 MG ENTERIC TABLET PO (08:50)
[2022-07-20] MEDS: levoFLOXacin 500 MG TABLET PO (08:50)
[2022-07-20] MEDS: LORATADINE 10 MG TABLET PO (08:50)
[2022-07-20] MEDS: APIXABAN 5 MG TABLET PO (08:50)
[2022-07-20] MEDS: modafiniL (*CRX) 200 MG TABLET PO (08:54)
--- NOTE | 2022-07-20 12:00 | PM.CNCAR ---
Assessment and Plan Assessment and plan (1) Atrial fibrillation with rapid ventricular response: Code(s): I48.91 - Unspecified atrial fibrillation Status: Acute Assessment and Plan: Recurrent atrial fibrillation with rapid ventricular response. Certainly may be related to her ongoing pericarditis. She will need an outpatient stress test eventually. She has not missed any doses of Eliquis since undergoing YOCASTA guided cardioversion last week. There was no thrombus noted last week during YOCASTA and so in my opinion, there is no need to repeat a YOCASTA this week. Minimalist approach would be to simply repeat cardioversion today on metoprolol. I did talk to her about initiating antiarrhythmic therapy. She is a bit hesitant to do so. She is willing but I think at this point given the fact her AFib very well may be attributed to her pericarditis, I think continued treatment of her pericarditis will reduce her chances of going back in atrial fibrillation. Obviously if she reverts back in AFib after this cardioversion, antiarrhythmic therapy should be initiated. She is agreeable with this treatment strategy. Continue Eliquis, metoprolol and will keep NPO for elective cardioversion later this afternoon. If successful, she can be discharged from cardiac perspective. Her potassium is a little low and recommend supplementing with KCL 40 mEq p.o. x1. I also do not see the need for the aspirin. She is on ibuprofen, Eliquis and her bleeding risk is significant already and therefore will discontinue her aspirin for now (2) Obstructive sleep apnea on CPAP: Code(s): G47.33 - Obstructive sleep apnea (adult) (pediatric); Z99.89 - Dependence on other enabling machines and devices Status: Acute Assessment and Plan: Continue CPAP (3) Chronic anticoagulation: Code(s): Z79.01 - toggler (current) use of anticoagulants Status: Acute Assessment and Plan: Continue Eliquis 5 mg p.o. b.i.d. (4) Pericarditis: Code(s): I31.9 - Disease of pericardium, unspecified Status: Acute Assessment and Plan: On colchicine and ibuprofen (5) Pericardial effusion: Code(s): I31.39 - Other pericardial effusion (noninflammatory) Status: Acute Assessment and Plan: Likely related to the pericarditis History of Present Illness History of Present Illness Consult date/time: 02/22/23 12:00 Requesting physician: Natali Rowell MD Consult reason: atrial fibrillation Reason For Visit: A-Fib w/RVR, Chest Pain Narrative: Date of service 07/20/2022 Reason for consultation atrial fibrillation Requesting provider: Dr. Rowell History patient is a 67-year-old female who was recently admitted last week for a combination of pericarditis and atrial fibrillation. She did undergo YOCASTA guided cardioversion on 07/13/2022 with christianity of sinus rhythm. She was discharged home a couple days later. She still has been having some issues with pleuritic type chest pain related to her pericarditis. She is still on a combination of colchicine and ibuprofen but has had some improvement in her symptoms recently. She noticed a couple of days ago after wearing her Fitbit that her heart rate has spiked up. Yesterday she was seen in the office because heart rate was in the 130s and 140s. Metoprolol had recently been increased up to 100 mg daily. Heart rate was still uncontrolled and she was mildly symptomatic with some dyspnea with exertion and even some at rest. She was then sent to the ER and started on diltiazem drip with improvement of her heart rate. She is currently off diltiazem and heart rate is currently in the 1 teens to 120s. She denies any syncope, presyncope, paroxysmal nocturnal dyspnea, orthopnea. She does have a history of sleep apnea and is back using her CPAP. No significant shortness of breath at present. She does have some occasional pleuritic chest pain still. Troponins are negative. No unusual
[2022-07-20] MEDS: POTASSIUM CHLORIDE 20 MEQ TABLET 40 MEQ PO (13:13)
--- NOTE | 2022-07-20 13:46 | WPDMODSED ---
Moderate Sedation Note-Pt Data Patient Data Diagnosis: Atrial fibrillation Present Complaint: atrial fibrillation Procedure to be performed/Plan: moderate sedation Electrical cardioversion Allergies Allergy/AdvReac Type Severity Reaction Status Date / Time clindamycin Allergy C Diff Verified 07/12/22 04:18 Home Medications Medication Instructions Recorded Confirmed Type modafinil 200 mg tablet 200 mg PO BID 1 month #60 tabs 06/24/22 07/19/22 Rx apixaban 5 mg tablet (Eliquis) 5 mg PO BID 07/12/22 07/19/22 History aspirin 81 mg tablet,delayed 81 mg PO DAILY 07/12/22 07/19/22 History release benzonatate 200 mg capsule 200 mg PO TID PRN cough #21 caps 07/12/22 07/19/22 Rx colchicine 0.6 mg tablet (Colcrys) 0.6 mg PO Q12HR #60 tabs 07/15/22 07/19/22 Rx ibuprofen 400 mg tablet 400 mg PO Q8HR #90 tabs 07/15/22 07/19/22 Rx levofloxacin 500 mg tablet 500 mg PO DAILY #5 tabs 07/15/22 07/19/22 Rx pantoprazole 40 mg tablet,delayed 40 mg PO QAM #30 tabs 07/15/22 07/19/22 Rx release loratadine 10 mg tablet (Claritin) 10 mg PO DAILY 07/19/22 07/19/22 History metoprolol succinate 25 mg 100 mg PO QAM 07/19/22 07/19/22 History tablet,extended release 24 hr (Toprol XL) polyethylene glycol 3350 17 17 g PO DAILY PRN Constipation 07/19/22 07/19/22 History gram/dose oral powder (Miralax) Current Medications: Active Medications Acetaminophen (Acetaminophen 325 Mg Tablet) 650 mg PO Q4H PRN PRN Reason: Mild Pain (1-3) or Fever Apixaban (Apixaban 5 Mg Tablet) 5 mg PO BID [facility] Last Admin: 07/20/22 08:50 Dose: 5 mg Colchicine (Colchicine 0.6 Mg Tablet) 0.6 mg PO Q12HR [facility] Last Admin: 07/20/22 08:50 Dose: 0.6 mg Ibuprofen (Ibuprofen 400 Mg Tablet) 400 mg PO Q8HR [facility] Last Admin: 07/20/22 13:14 Dose: 400 mg Levofloxacin (Levofloxacin 500 Mg Tablet) 500 mg PO DAILY [facility] Last Admin: 07/20/22 08:50 Dose: 500 mg Loratadine (Loratadine 10 Mg Tablet) 10 mg PO DAILY [facility] Last Admin: 07/20/22 08:50 Dose: 10 mg Metoprolol Succinate (Metoprolol Succinate Ext Rel 100 Mg Tabcr) 100 mg PO QAM [facility] Last Admin: 07/20/22 08:49 Dose: 100 mg Modafinil (Modafinil (*Crx) 200 Mg Tablet) 200 mg PO BID@0900,1300 [facility] Last Admin: 07/20/22 13:13 Dose: Not Given Pantoprazole Sodium (Pantoprazole 40 Mg Tablet) 40 mg PO QAM [facility] Last Admin: 07/20/22 08:49 Dose: 40 mg Polyethylene Glycol (Polyethylene Glycol 3350 17 Gm Powd.Pack) 17 gm PO DAILY PRN PRN Reason: Constipation Sedation/Anesthesia: No previous sedation/anesthesia problems (including family history). [facility] Past Medical History Medical History Chronic anticoagulation Esophageal stricture History of esophageal dilatation. Hereditary spherocytosis Narcolepsy Obstructive sleep apnea on CPAP Paroxysmal atrial fibrillation Pericarditis Had pericarditis when young, and again in 06/2022. 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 Family History Family History Father Family history of emphysema Mother Lymphoma Macula lutea degeneration Acute rheumatoid arthritis Sibling Atrial fibrillation Cerebrovascular accident Social History Social History Social History: Surrogate medical decision maker: Nav Galvan, spouse. Code status: Full code. Smoking status: Never smoker Alcohol intake: former Substance use: never Substance use type: does not use Lack of Transportation: No Lack of Food: Never True Current Housing: I Have Housing Concerned About Future Housing: No Difficulty Paying Gas/Electric Bills: No Difficulty Paying for Meds: No Currently Unemployed: No Education: High School Diploma/GED Diff
--- NOTE | 2022-07-20 14:00 | WPDCARDVER ---
Cardioversion Cardioversion Date of procedure: 07/20/22 Procedure: electrical cardioversion Moderate sedation Pre-op diagnosis: atrial fibrillation Post-op diagnosis: Same Indications: atrial fibrillation Description of procedure: after discussing risks, benefits alternatives of procedure patient agreeable via verbal and written informed consent. Risks discussed included , adverse reaction to anesthesia, shocking into more problematic heart rhythm skin irritation or burn stroke. After establishing continuous telemetry monitoring, pulse oxygenation in serial blood pressure assessments, time-out was taken and procedure was started. Procedure start time 1:54 p.m. Procedure stop time 1:57 p.m. Complications: None Blood loss: None Sedation: Total 2 mg of Versed and 25 mcg of fentanyl given in divided dosages Patient was monitored and medications given by Swathi Stark RN Findings: successful baptism of sinus rhythm from atrial fibrillation using 200 joules of synchronized biphasic energy Conclusion: 1. Successful baptism of sinus rhythm from atrial fibrillation using 200 joules of synchronized biphasic energy x1 2. Moderate sedation
--- NOTE | 2022-07-20 14:19 | PM.DS ---
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 Labs, imaging, EKG, and all reports were personally reviewed. She had her metoprolol dose increased yesterday due to the rapid heart rate to no avail. She has since been started on a diltiazem drip with improvement in her rate though she remains in AFib. Continue apixaban for stroke prophylaxis. Pt was successfully cardioverted yesterday ok to dc with cardiology follow up Pt advised to continue NSAIDs for pericarditis (2) Elevated LFTs: Code(s): R79.89 - Other specified abnormal findings of blood chemistry Status: Acute (3) Chronic anticoagulation: Code(s): Z79.01 - nursing home (current) use of anticoagulants Status: Acute (4) Obstructive sleep apnea on CPAP: Code(s): G47.33 - Obstructive sleep apnea (adult) (pediatric); Z99.89 - Dependence on other enabling machines and devices Status: Acute (5) Abnormal chest x-ray: Code(s): R93.89 - Abnormal findings on diagnostic imaging of other specified body structures Status: Acute DS: Summary Hospital Course Hospital Course: 67-year-old female with paroxysmal atrial fibrillation on chronic anticoagulation, obstructive sleep apnea on CPAP, and narcolepsy who 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 Patient provides the following history. She was recently admitted to the hospital with pericarditis and atrial fibrillation with rapid ventricular response. She was started on and remains on colchicine and ibuprofen with improvement. She underwent cardioversion on 07/13/2022 with presybeterian of sinus rhythm and she was discharged home 2 days thereafter. Since that time she has been wearing a Fitbit to monitor her heart rate and it has been erratic and fast the last couple of days however she is asymptomatic with that. She spoke with Dr. Laz wilder office and was told to increase her metoprolol though that had no effect on her heart rate. She went in today for evaluation, was found to be in atrial fibrillation with a rate in the 130s and she was directed to the ER. She has since been started on a Cardizem drip with improvement her rate though she remains in AFib. At the time of my evaluation she is resting comfortably and has no complaints. Pt was successfully cardioverted yesterday ok to dc with cardiology follow up Pt advised to continue NSAIDs for pericarditis Time Spent with Patient Time attestation: Total time spent providing and/or coordinating discharge services: Exam Narrative: General: Well-developed Respiratory: Lungs are clear to auscultation bilaterally. Cardiovascular: Irregularly irregular rate and rhythm. Gastrointestinal: Abdomen is soft, nontender, and nondistended with positive bowel sounds. Skin: Warm and dry. No rash or lesions on limited exam. Extremities: No cyanosis, clubbing, or significant edema. Peripheral pulses palpable. Neurological: Alert. Cranial nerves 2-12 are grossly intact. No gross focal deficits to casual conversation. Psychiatric: Pleasant and cooperative with normal mood and affect. Judgment and insight intact. DS: Data Data Completed and Pending Labs on day of discharge: Labs from last 24 hours 07/20/22 07/19/22 07/19/22 04:32 19:40 16:43 Total Counted Neutrophils % (Manual) Band Neutrophils % Lymphocytes % (Manual) Monocytes % (Manual) Eosinophils % (Manual) Abs Neuts (Manual) Abs Lymphs (Manual) Abs M
--- NOTE | 2022-07-20 14:30 | ECG_ITS ---
Measurements Intervals [place] Rate: 75 P: 31 [place]: 170 QRS: 11 QRSD: 90 T: 1 QT: 388 QTc: 434 Interpretive Statements SINUS RHYTHM POSSIBLE RIGHT VENTRICULAR CONDUCTION DELAY [RSR (QR) IN V1/V2] SEPTAL MYOCARDIAL INFARCTION , OF INDETERMINATE AGE [40+ ms Q WAVE IN V1/V2] COMPARED TO ECG 07/20/2022 11:14:08 SINUS RHYTHM NOW PRESENT Electronically Signed On 07-20-2022 15:07:23 [employer]ING WORK[employer] by Sonia Joya M.D.
== END 2022-07-20 16:30 | disposition home or self-care (01) ==
LOC: ANHED 14:33 → ANHIMU 19:40
PROVIDERS: Emergency Medicine; Internal Medicine Cardiovascular Disease; Physician Assistant; Admitting Provider Family Medicine; Emergency Provider Emergency Medicine; PCP Nurse Practitioner Family; Visit Provider Family Medicine
PROC: 5A2204Z Restoration of Cardiac Rhythm, Single (ICD-10-PCS; principal; 2022-07-20 14:00)
DX: I48.91 Unspecified atrial fibrillation (principal); R79.89 Other specified abnormal findings of blood chemistry; G47.33 Obstructive sleep apnea (adult) (pediatric); Z99.89 Dependence on other enabling machines and devices; R93.89 Abnormal findings on diagnostic imaging of other specified body structures; G47.419 Narcolepsy without cataplexy; R07.9 Chest pain, unspecified; R06.02 Shortness of breath; Z20.822 Contact with and (suspected) exposure to COVID-19; M25.512 Pain in left shoulder; M25.511 Pain in right shoulder; R03.0 Elevated blood-pressure reading, without diagnosis of hypertension; R94.31 Abnormal electrocardiogram [ECG] [EKG]; I31.39 Other pericardial effusion (noninflammatory); I31.9 Disease of pericardium, unspecified; Z79.01 Long term (current) use of anticoagulants; Z79.82 Long term (current) use of aspirin; Z79.1 Long term (current) use of non-steroidal anti-inflammatories (NSAID); Z79.899 Other long term (current) drug therapy; Z82.49 Family history of ischemic heart disease and other diseases of the circulatory system
CPT/HCPCS: 36415; 71046; 80053; 83690; 83735; 83880; 84443; 84484; 85025; 85055; 85610; 85730; 87636; 92960; 93005; 94660; 96374; 99285; A9270; G0378; J2250; J3010; J7040

== ENCOUNTER 2022-07-25 11:24 | Inpatient (IN) | payer OTHER, SELFPAY ==
[2022-07-25] VITALS (15 sets, daily range): BP systolic 96–154; BP diastolic 57–131; PULSE 69–131; RESP 18–20; TEMP 36.1–36.7; O2SAT 93–100; BMI 35.0
--- NOTE | ~2022-07-25 | XR_ITS ---
Clinical Indication: Shortness of breath PA and lateral views of the chest: Comparison: 07/19/2022 Findings: There is mild bibasilar pulmonary edema/atelectasis. Minimal left pleural effusion. Cardio mediastinal silhouette is within normal limits. Bones and soft tissues are unremarkable. Impression: Probable mild bibasilar pulmonary edema/atelectasis. Minimal left pleural effusion. Reviewed, dictated and finalized at location . S REGISTERED NURSE RN Impression: Probable mild bibasilar pulmonary edema/atelectasis. Minimal left pleural effusion.
--- NOTE | ~2022-07-25 | XR_ITS ---
EXAMINATION: XR chest 1V portable INDICATION: Hypoxia TECHNIQUE: Portable AP chest at 1708 hours COMPARISON: 07/25/2022 FINDINGS: There are minimal airspace opacities of the lung bases with interval worsening. Small pleur al effusions are present. No pneumothorax is identified. Cardiomegaly is noted. IMPRESSION: 1. Minimal bibasilar airspace opacities with interval worsening, consistent with atelectasis versus p neumonia. 2. Small pleural effusions. Reviewed, dictated and finalized at location F. [place] SALES ASSOCIATE BILINGUAL IMPRESSION: 1. Minimal bibasilar airspace opacities with interval worsening, consistent wit h atelectasis versus pneumonia. 2. Small pleural effusions.
--- NOTE | 2022-07-25 11:39 | ECG_ITS ---
Measurements Intervals [place] Rate: 123 P: [place]: 0 QRS: 19 QRSD: 89 T: 0 QT: 306 QTc: 439 Interpretive Statements ATRIAL FIBRILLATION WITH RAPID VENTRICULAR RESPONSE NONSPECIFIC T-WAVE ABNORMALITY ABNORMAL ECG COMPARED TO ECG 07/20/2022 14:00:35 ATRIAL FIBRILLATION NOW PRESENT T-WAVE ABNORMALITY NOW PRESENT Electronically Signed On 07-25-2022 14:40:10 YARDMASTER by Gilbert Archer M.D.
[2022-07-25 12:04] LABS: Basophils Absolute Auto 0.1 K/mm3 (0.0-0.1); Basophils Percent Auto 0.6 % (0.2-1.2); Eosinophils Absolute Auto 0.2 K/mm3 (0-0.3); Eosinophils Percent Auto 1.7 % (0-4.4); Hematocrit 37.9 % (37.0-47.0); Hemoglobin 12.6 g/dL (12.0-15.0); Immature Granulocyte Absolute 0.06 K/mm3 (0.00-0.031); Immature Granulocyte Percent A 0.4 % (0-0.5); Immature Platelet Fraction Pct 7.3 % (0.9-11.2); Lymphocytes Absolute Auto 1.19 K/mm3 (0.9-3.2); Lymphocytes Percent Auto 8.3 % (18.3-44.2); Mean Corpuscular HGB Conc 33.2 g/dl (32-36); Mean Corpuscular Hemoglobin 29.8 pg (26-34); Mean Corpuscular Volume 89.6 fl (80-100); Mean Platelet Volume 10.6 fl (7.4-10.4); Monocytes Percent Auto 7.1 % (2.6-8.5); Neutrophils Absolute Auto 11.8 K/mm3 (1.3-6.7); Neutrophils Percent Auto 81.9 % (45.5-73.1); Platelet Count Result 700 k/mm3 (150-375); Red Blood Count 4.23 M/mm3 (4.2-5.4); White Blood Count 14.4 K/mm3 (4.5-10.0)
--- NOTE | 2022-07-25 12:24 | ED.ARRPALP ---
HPI - Arrhythmia/Palpitations General Chief Complaint: Arrhythmia/Palpitations Stated Complaint: afib Time Seen by Provider: 07/25/22 12:07 History of Present Illness HPI narrative: Patient is a 67-year-old female with a history of paroxysmal A-fib on Eliquis presenting with A-fib. Patient states that she was actually just here last week and she underwent cardioversion. States that she went back into A-fib over the weekend but her heart rate was in the 70s to 90s. Today she was scheduled for an EKG with her dermatology nurse practitioner and it was concerning for A-fib with RVR with a rate in the 140s. She was advised to come down to the ER to be admitted. She states that she has been feeling a bit short of breath and lightheaded today. States that she did have some left-sided chest pain as well. No fevers or chills, headache, numbness or weakness, cough, abdominal pain, vomiting, diarrhea, leg swelling. Related Data Home Medications Medication Instructions Recorded Confirmed apixaban 5 mg tablet (Eliquis) 5 mg PO BID 07/12/22 07/25/22 loratadine 10 mg tablet (Claritin) 10 mg PO DAILY 07/19/22 07/25/22 metoprolol succinate 25 mg 100 mg PO QAM 07/19/22 07/25/22 tablet,extended release 24 hr (Toprol XL) polyethylene glycol 3350 17 17 g PO DAILY PRN Constipation 07/19/22 07/25/22 gram/dose oral powder (Miralax) Allergies Allergy/AdvReac Type Severity Reaction Status Date / Time clindamycin Allergy C Diff Verified 07/12/22 04:18 Review of Systems Review of Systems: All systems reviewed & are unremarkable except as noted in HPI and below [facility] Past Medical History Medical History (Updated 07/25/22 @ 20:27 by Ariana Qureshi MD) Chronic anticoagulation Esophageal stricture History of esophageal dilatation. Hereditary spherocytosis Narcolepsy Obstructive sleep apnea on CPAP Paroxysmal atrial fibrillation Pericarditis Had pericarditis when young, and again in 06/2022. 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 Family History Family History Father Family history of emphysema Mother Lymphoma Macula lutea degeneration Acute rheumatoid arthritis Sibling Atrial fibrillation Cerebrovascular accident Social History Social History Social History: Surrogate medical decision maker: Nav Galvan, spouse. Code status: Full code. Smoking status: Never smoker Alcohol intake: former Substance use: never Substance use type: does not use Lack of Transportation: No Lack of Food: Never True Current Housing: I Have Housing Concerned About Future Housing: No Difficulty Paying Gas/Electric Bills: No Difficulty Paying for Meds: No Currently Unemployed: No Education: High School Diploma/GED Difficulty w/ Childcare or Family Care: No Living arrangements: with family Spiritual care concerns: No Exam Narrative: GENERAL: Well-appearing, well-nourished, and in no acute distress. HEAD: Normocephalic, atraumatic. EYES: PERRLA and EOMI. ENT: Nares clear, no rhinorrhea or epistaxis. Mucous membranes moist. NECK: Supple. CHEST: Clear to auscultation. No respiratory distress. HEART: Tachycardic, irregular rhythm ABDOMEN: Soft, nontender, nondistended EXTREMITIES: Normal range of motion. No edema. SKIN: Warm, dry, no rash. NEURO: No focal deficits. Alert and oriented x3. PSYCH: Normal mood and affect. Course Vital Signs Vital signs: Vital Signs Temperature 98.0 F 07/25/22 11:41 Pulse Rate 131 H 07/25/22 11:41 Respiratory Rate 18 07/25/22 11:41 Blood Pressure 113/73 07/25/22 11:41 Pulse Oximetry 99 07/25/22 11:41 Oxygen Delivery Room Air 07/25/22 11:41 Temperature 97 F L 07/25/22 20:00 Pulse Rate 90
[2022-07-25 12:43] LABS: Influenza A QL RT-PCR Negative (Negative); Influenza B QL RT-PCR Negative (Negative); SARS-CoV-2 RNA PCR Negative
[2022-07-25 12:48] LABS: Alanine Aminotransferase 34 U/L (6-35); Albumin Level 3.9 g/dL (3.5-5.1); Alkaline Phosphatase 144 U/L (38-126); Anion Gap 6 mmol/L (8-16); Aspartate Amino Transferase 32 U/L (14-36); Bilirubin,Total 0.8 mg/dL (0.2-1.3); Blood Urea Nitrogen 14 mg/dL (7-17); Calcium 9.1 mg/dL (8.4-10.2); Carbon Dioxide 28 mmol/L (22-30); Chloride 102 mmol/L (98-107); Estimated CRCL calculation 78 ml/min; Estimated Glomerular Filt Rate > 60; Glucose 111 mg/dL (65-110); Lipase 76 U/L (23-300); Potassium 3.9 mmol/L (3.4-5.0); Sodium 136 mmol/L (137-145)
[2022-07-25 13:02] LABS: INR 1.5; Prothrombin Time 17.9 Seconds (11.1-14.7)
[2022-07-25 13:03] LABS: Partial Thromboplastin Time 30.2 SECONDS (22.3-36.8)
[2022-07-25 13:17] LABS: Troponin I < 0.012 ng/mL (0.000-0.034)
--- NOTE | 2022-07-25 13:47 | PC.NURSE ---
Pt refused ASA said her community development specialist told her not to take ASA, she is on Eliquis.
--- NOTE | 2022-07-25 14:50 | ADMGEN ---
This patient, Yari Galvan, was admitted to IMU Room 209-01. Patient/family oriented to hospital policies and general routines including ID bracelet, bed and alarms, visiting hours, pain management, procedures, bathroom and other care routines, personal items, smoking policy, room service/diet, and visiting hours. Information on how to activate the Rapid Response Team has been discussed. Patient/Family are encouraged to report perceived risks to care and to ask questions if they do not understand what they are told or what they should do.
--- NOTE | 2022-07-25 15:16 | PM.CNCAR ---
Assessment and Plan Assessment and plan (1) Atrial fibrillation with rapid ventricular response: Code(s): I48.91 - Unspecified atrial fibrillation Status: Acute Assessment and Plan: Paroxysmal AFib with RVR. Patient has failed present medical therapy now reverting back to atrial fibrillation with rapid ventricular response despite initial success with YOCASTA guided cardioversion 07/13/2021. Patient asymptomatic with poorly controlled heart rate on Toprol XL 100 mg daily. Discussed case with Dr. Nesbitt and the patient regarding plan of care. Plan offered and patient accepted was to admit for sotalol loading to improve likelihood of achieving and maintaining sinus rhythm. Discussed the risks, benefits and alternatives in this regard and concern with regards to monitoring QT prolongation for 5 total doses in the hospital with routine ECG on telemetry. Patient verbalized understanding of this requisite and agrees with plan of care. Will begin sotalol 80 mg twice daily this evening and reduce Toprol XL to 50 mg daily with close observation with regards to heart rate control. May give metoprolol 5 mg IV for sustained heart rate greater than 120 beats per minute overnight. Continue Eliquis 5 mg b.i.d. without interruption. All questions answered the patient and her daughter satisfaction. (2) Encounter for monitoring sotalol therapy: Code(s): Z51.81 - Encounter for therapeutic drug level monitoring; Z79.899 - Other fci (current) drug therapy Status: Acute Assessment and Plan: As above, avoid QT prolonging drugs. Will begin sotalol 80 mg twice daily with routine ECG post dosing per protocol. QTc 439 earlier today. Patient must remain hospitalized for 5 total doses in order to achieve study state to observe safety with regards to QTc and minimize risk for potential life-threatening ventricular arrhythmias namely torsades. (3) Pericarditis: Code(s): I31.9 - Disease of pericardium, unspecified Status: Acute Assessment and Plan: Significant improvement on colchicine 0.6 mg twice daily and ibuprofen 4 mg p.o. q.8 hours, however, symptoms remain persistent but mild. There is no rub on exam. Increased bleeding risk with colchicine, ibuprofen and Eliquis, however, given her treatment for pericarditis this must be continued as patient continues to have improvement but residual symptoms. Patient doing well thus far. Follow H&H. (4) Obstructive sleep apnea on CPAP: Code(s): G47.33 - Obstructive sleep apnea (adult) (pediatric); Z99.89 - Dependence on other enabling machines and devices Status: Acute Assessment and Plan: Continue CPAP compliance for treatment of APRYL. (5) Chronic anticoagulation: Code(s): Z79.01 - [facility]CI (current) use of anticoagulants Status: Acute Assessment and Plan: Continue Eliquis 5 mg b.i.d.. For systemic anticoagulation and embolic stroke risk reduction. History of Present Illness History of Present Illness Consult date/time: Date of service: 07/25/22 15:16 Requesting physician: Lexa Smith MD Consult reason: atrial fibrillation Reason For Visit: Afib w RVR Narrative: Patient is a very pleasant 67-year-old female followed by Dr. Nesbitt as an outpatient with recent diagnosis on admission earlier this month with atypical pneumonia, pericarditis and newly discovered atrial fibrillation with rapid ventricular response. Patient underwent YOCASTA guided cardioversion 07/13/2022 which was successful restoring sinus rhythm. She was treated for pericarditis with colchicine and ibuprofen with improvement in her symptoms and was discharged home in sinus rhythm on 07/20/2022. Patient stated the weekend she went back in atrial fibrillation with heart rate in the 70s and 90s or low 100s on average as evidenced by her Fitbit. She was then seen by Dr. Nesbitt in the office earlier today when EKG confirmed atrial fibrillation with ra
--- NOTE | 2022-07-25 15:34 | PM.IMHP ---
H&P: HPI History of Present Illness Date/Time: 07/25/22 15:34 Chief Complaint: Palpitations Narrative: Yari Galvan is a 67 yo female with APRYL, narcolepsy, hereditary spherocytosis, and paroxysmal atrial fibrillation who has been admitted to this facility for afib RVR on 07/12/22 to 07/15/22 and again 07/19/22 to 07/20/22. She had YOCASTA cardioversion on 07/13/22 and again on 07/20/22. The patient reports that last Monday, her daughter bought her a FitBit watch and it alarmed that she had an irregular heart beat. She called her Cardiologists office on Monday and was deferred to the ED when she was again rehospitalized. This past weekend she was back in afib with her heart rate in the 70-90s, but always <100s. She was at her multiple sclerosis nurse in the office today and her EKG showed afib RVR 140s. She was instructed to go to the ED for further evaluation. Last night she had left sided chest pain with associated pain between her shoulder blades. No pain radiating to her arm, jaw or neck. No nausea, vomiting, or diaphoresis. This morning she also reports dizziness and shortness of breath with exertion. She denies palpitations. In the ED, vitals were HR 131, RR 18, BP 113/73, temp 98.0F, and spO2 99% room air. Lab work shows WBC 14.4 (of note, her HR has been 11-15 since 07/11 when diagnosed with pericarditis), H/H 12.6/37, platelets 700, K 3.9, sodium 136, glucose 111, calcium 9.1, and normal renal function. Troponin is pending. Influenza A/B and COVID19 were negative. EKG showed afib with RVR 123 bpm with nonspecific T-wave abnormality. Chest x-ray showed mild bibasilar pulmonary edema versus atelectasis. She was admitted IMU for further management of afib RVR and Cardiology evaluation. Review of Systems Review of Systems: All systems reviewed & are unremarkable except as noted in HPI and below Constitutional: Constitutional: Reports fatigue Eyes: Eyes: Reports no additional eye complaints ENT: Reports system reviewed and no additional complaints, except as documented Cardiovascular: Cardiovascular: Reports as per HPI Respiratory: Respiratory: Reports cough (chronic) and Reports other (treated for atypical pneumonia 07/12/22 hospitalization) Gastrointestinal: Gastrointestinal: Reports constipation (chronic, takes miralax intermittently) Genitourinary: Genitourinary: Reports no additional female genitourinary complaints Musculoskeletal: Musculoskeletal: Reports no additional musculoskeletal complaints Integumentary/Breasts: Skin/Breast: Reports system reviewed and no additional complaints, except as docu Neurologic: Reports system reviewed and no additional complaints, except as documented Psychiatric: Psychiatric: Reports no additional psychiatric complaints [facility] Past Medical History Medical History (Updated 07/25/22 @ 16:35 by Gabriela Scruggs APRN) Chronic anticoagulation Esophageal stricture History of esophageal dilatation. Hereditary spherocytosis Narcolepsy Obstructive sleep apnea on CPAP Paroxysmal atrial fibrillation Pericarditis Had pericarditis when young, and again in 06/2022. 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 Family History Family History Father Family history of emphysema Mother Lymphoma Macula lutea degeneration Acute rheumatoid arthritis Sibling Atrial fibrillation Cerebrovascular accident Social History Social History Social History: Surrogate medical decision maker: Nav Galvan, spouse. Code status: Full code. Smoking status: Never smoker Alcohol intake: former Substance use: never Substance use type: does not use Lack of Transportation: No Lack of Food: Never True Current Housing: I Have Housing Concerned About Futur
[2022-07-25 16:13] LABS: Troponin I < 0.012 ng/mL (0.000-0.034)
[2022-07-25] MEDS: POTASSIUM CHLORIDE 20 MEQ TABLET PO (18:14)
[2022-07-25] MEDS: IBUPROFEN 400 MG TABLET PO ×2 (18:15→23:38)
[2022-07-25 18:34] LABS: Magnesium 2.3 mg/dL (1.6-2.3)
[2022-07-25 18:43] LABS: Troponin I < 0.012 ng/mL (0.000-0.034)
[2022-07-25 19:59] LABS: Free T4 Free Thyroxine 1.31 ng/mL (0.78-2.19)
[2022-07-25] MEDS: APIXABAN 5 MG TABLET PO (20:47)
[2022-07-25] MEDS: COLCHICINE 0.6 MG TABLET PO (20:47)
[2022-07-25] MEDS: SOTALOL HCL 80 MG TABLET PO (20:47)
--- NOTE | 2022-07-25 23:00 | ECG_ITS ---
Measurements Intervals [place] Rate: 73 P: NM: 0 QRS: 22 QRSD: 85 T: 60 QT: 401 QTc: 442 Interpretive Statements ATRIAL FIBRILLATION NONSPECIFIC ST & T-WAVE ABNORMALITY ABNORMAL RHYTHM ECG WARNING: DATA QUALITY MAY AFFECT INTERPRETATION COMPARED TO ECG 07/25/2022 11:51:47 NO SIGNIFICANT CHANGES Electronically Signed On 07-26-2022 11:34:52 GREEN CHAIN WORKER by Sonia Joya M.D.
[2022-07-26] VITALS (18 sets, daily range): BP systolic 102–134; BP diastolic 62–88; PULSE 67–117; RESP 16–20; TEMP 36.1–36.8; O2SAT 92–97
[2022-07-26 05:11] LABS: Hematocrit 34.8 % (37.0-47.0); Hemoglobin 11.6 g/dL (12.0-15.0); Immature Platelet Fraction Pct 6.9 % (0.9-11.2); Mean Corpuscular HGB Conc 33.3 g/dl (32-36); Mean Corpuscular Hemoglobin 29.5 pg (26-34); Mean Corpuscular Volume 88.5 fl (80-100); Mean Platelet Volume 10.5 fl (7.4-10.4); Platelet Count Result 640 k/mm3 (150-375); Red Blood Count 3.93 M/mm3 (4.2-5.4); Red Cell Distribution Width 13.8 % (11.5-14.5); White Blood Count 10.9 K/mm3 (4.5-10.0)
[2022-07-26 05:20] LABS: Alanine Aminotransferase 29 U/L (6-35); Albumin Level 3.3 g/dL (3.5-5.1); Alkaline Phosphatase 129 U/L (38-126); Anion Gap 1 mmol/L (8-16); Aspartate Amino Transferase 27 U/L (14-36); Bilirubin,Total 0.6 mg/dL (0.2-1.3); Blood Urea Nitrogen 15 mg/dL (7-17); Calcium 8.8 mg/dL (8.4-10.2); Carbon Dioxide 30 mmol/L (22-30); Chloride 104 mmol/L (98-107); Estimated CRCL calculation 89 ml/min; Estimated Glomerular Filt Rate > 60; Glucose 97 mg/dL (65-110); Magnesium 2.3 mg/dL (1.6-2.3); Potassium 3.7 mmol/L (3.4-5.0); Sodium 135 mmol/L (137-145)
[2022-07-26] MEDS: METOPROLOL SUCCINATE EXT REL 50 MG TABCR PO (07:55)
[2022-07-26] MEDS: APIXABAN 5 MG TABLET PO ×2 (07:55→21:32)
[2022-07-26] MEDS: modafiniL (*CRX) 200 MG TABLET PO ×3 (07:55→12:52)
[2022-07-26] MEDS: IBUPROFEN 400 MG TABLET PO ×3 (07:55→23:37)
[2022-07-26] MEDS: COLCHICINE 0.6 MG TABLET PO ×2 (07:55→21:32)
[2022-07-26] MEDS: SOTALOL HCL 80 MG TABLET PO ×2 (07:56→21:32)
[2022-07-26] MEDS: PANTOPRAZOLE 40 MG TABLET PO (07:56)
--- NOTE | 2022-07-26 09:42 | PM.PNCARD ---
Progress Note: A&P Assessment and Plan (1) Atrial fibrillation with rapid ventricular response: Code(s): I48.91 - Unspecified atrial fibrillation Status: Acute Assessment and Plan: Paroxysmal AFib with RVR. Patient has failed present medical therapy now reverting back to atrial fibrillation with rapid ventricular response despite initial success with YOCASTA guided cardioversion 07/13/2021.? Patient asymptomatic with poorly controlled heart rate on Toprol XL 100 mg daily.? Discussed case with Dr. Nesbitt and the patient regarding plan of care.? Plan offered and patient accepted was to admit for sotalol loading to improve likelihood of achieving and maintaining sinus rhythm.? Discussed the risks, benefits and alternatives in this regard and concern with regards to monitoring QT prolongation for 5 total doses in the hospital with routine ECG on telemetry.? Patient verbalized understanding of this requisite and agrees with plan of care.? Sotalol 80 mg twice daily started on evening of 07/25. Her 5TH dose will be administered on evening of 07/27. She will need to remain in the hospital during this time. Please obtain daily EKGs. Reduced Toprol XL to 50 mg daily with close observation with regards to heart rate control.? May give metoprolol 5 mg IV for sustained heart rate greater than 120 beats per minute overnight.? Continue Eliquis 5 mg b.i.d. without interruption.? (2) Encounter for monitoring sotalol therapy: Code(s): Z51.81 - Encounter for therapeutic drug level monitoring; Z79.899 - Other watermelon inspector (current) drug therapy Status: Acute Assessment and Plan: As above, avoid QT prolonging drugs.? Began sotalol 80 mg twice daily with routine ECG post dosing per protocol.? Patient must remain hospitalized for 5 total doses in order to achieve study state to observe safety with regards to QTc and minimize risk for potential life-threatening ventricular arrhythmias namely torsades. (3) Pericarditis: Qualifiers: Pericarditis type: unspecified type Chronicity: unspecified Qualified Code(s): I31.9 - Disease of pericardium, unspecified Code(s): I31.9 - Disease of pericardium, unspecified Status: Acute Assessment and Plan: Significant improvement on colchicine 0.6 mg twice daily and ibuprofen 4 mg p.o. q.8 hours, however, symptoms remain persistent but mild.? There is no rub on exam.? Increased bleeding risk with colchicine, ibuprofen and Eliquis, however, given her treatment for pericarditis this must be continued as patient continues to have improvement but residual symptoms.? Patient doing well thus far.? Follow H&H. Subjective Date/time seen: 07/26/22 09:42 Interval history: Reason for visit: Atrial fibrillation with RVR HPI: Patient is a very pleasant 67-year-old female followed by Dr. Nesbitt as an outpatient with recent diagnosis on admission earlier this month with atypical pneumonia, pericarditis and newly discovered atrial fibrillation with rapid ventricular response.? Patient underwent YOCASTA guided cardioversion 07/13/2022 which was successful restoring sinus rhythm.? She was treated for pericarditis with colchicine and ibuprofen with improvement in her symptoms and was discharged home in sinus rhythm on 07/20/2022.? Patient stated the weekend she went back in atrial fibrillation with heart rate in the 70s and 90s or low 100s on average as evidenced by her Fitbit.? She was then seen by Dr. Nesbitt in the office earlier today when EKG confirmed atrial fibrillation with rapid ventricular response.? Patient complaining of some left-sided chest discomfort, shortness of breath and lightheadedness for which admission to the hospital was recommended and sotalol loading.? Patient notes mild chest discomfort which is rather chronic at this time improving overall on therapy for her pericarditis.? She has residual dry cough since her pneumonia earlier this month.? She denies fevers, chills.? S
--- NOTE | 2022-07-26 10:00 | ECG_ITS ---
Measurements Intervals [place] Rate: 85 P: [place]: 0 QRS: 30 QRSD: 90 T: 0 QT: 389 QTc: 463 Interpretive Statements ATRIAL FIBRILLATION NONSPECIFIC ST-T WAVE ABNORMALITY COMPARED TO ECG 07/25/2022 23:24:46 NO SIGNIFICANT CHANGES Electronically Signed On 07-26-2022 11:37:52 INCIDENT RESPONSE ANALYST by Sonia Joya M.D.
--- NOTE | 2022-07-26 13:39 | PM.IMPN ---
Progress Note: A&P Assessment and Plan (1) Atrial fibrillation with rapid ventricular response: Code(s): I48.91 - Unspecified atrial fibrillation Status: Acute Assessment and Plan: Patient admitted from the ED for afib RVR. She was seen in her Mri Supervisor's office today and EKG showed afib RVR 140s. Admit to IMU Monitor telemetry Consult Cardiology and appreciate recommendations. YOCASTA cardioversion x2 on 07/13/22 and 07/20/22 Initiated on sotalol 80 mg BID per Cardiology, first dose 07/25/22 at 2100 Metoprolol succinate 50 mg PO daily, decreased dose Monitor electrolytes - K 3.7, magnesium 2.3 EKG in am daily for QTc monitoring- 07/26 QTc 463 (2) Obstructive sleep apnea on CPAP: Code(s): G47.33 - Obstructive sleep apnea (adult) (pediatric); Z99.89 - Dependence on other enabling machines and devices Status: Chronic Assessment and Plan: Chronic, continue CPAP for naps and HS. (3) Pericarditis: Qualifiers: Pericarditis type: unspecified type Chronicity: unspecified Qualified Code(s): I31.9 - Disease of pericardium, unspecified Code(s): I31.9 - Disease of pericardium, unspecified Status: Acute Assessment and Plan: Diagnosed 07/12/22 during previous admission. Continue colchicine and ibuprofen. 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 (5) Post-viral cough syndrome: Code(s): R05.8 - Other specified cough Status: Acute Assessment and Plan: Continue tessalon perles 100 mg PO TID PRN cough Plan CODE STATUS: FULL CODE Disposition: from home. GI prophylaxis: Continue protonix Diet: Heart healthy Subjective Date/time seen: 07/26/22 13:39 Interval history: Patient is a 67 yo female with APRYL, narcolepsy, hereditary spherocytosis, and paroxysmal atrial fibrillation s/p YOCASTA cardioversion on 07/13/22 and again on 07/20/22. She presented to the ED from her Mri Supervisor's office for sotalol induction for afib RVR. She denies new complaints or overnight events. Nursing notes reviewed. She was noted to have 2.3 to 2.5 second pause/delay overnight while asleep. She denies awaking with symptoms overnight. Review of Systems Review of Systems: All systems reviewed & are unremarkable except as noted in HPI and below Exam Narrative: General: No acute distress.? Well-developed older adult female lying in bed. Nontoxic appearing. Mental Status/Psych: Awake, alert and oriented x3 with clear speech. Neutral mood and affect. Pleasant and cooperative. Skin: Skin fair, warm, dry and intact without rashes or lesions. No open wounds. Good turgor.? HEENT: Normocephalic. Sclera is non-icteric. Pupils equal and round. Oral mucosa pink and moist. Neck: No JVD. Heart: Irregularly irregular rate and rhythm. No rubs auscultated. Afib 198 bpm on telemetry Chest: Respirations even and unlabored. Lung sounds clear to auscultation in all lobes bilaterally without wheezes. Abdomen: Soft, round and non-tender to palpation.? Bowel sounds present in all 4 quadrants. Extremities:? Grossly normal ROM all extremities. No edema, erythema or calf tenderness. Radial and dorsalis pedis pulses +2 bilaterally. Neurological: No focal deficits. Objective Data Vital Signs Vital Signs: Vital Signs - 24 hr 07/25/22 13:51 07/25/22 14:35 07/25/22 14:50 Temperature 97.7 F Pulse Rate 112 H 102 H 104 H Respiratory Rate 20 20 18 Blood Pressure 96/71 L 114/73 130/89 Pulse Oximetry 95 95 95 Oxygen Delivery 07/25/22 16:00 07/25/22 16:00 07/25/22 18:00 Temperature 98 F Pulse Rate 102 H 97 102 H Respiratory Rate 18 Blood Pressure 113/63 Pulse Oximetr
--- NOTE | 2022-07-26 23:30 | ECG_ITS ---
Measurements Intervals [place] Rate: 100 P: NM: 0 QRS: 32 QRSD: 90 T: 180 QT: 370 QTc: 479 Interpretive Statements ATRIAL FIBRILLATION WITH RAPID VENTRICULAR RESPONSE INCOMPLETE RIGHT BUNDLE BRANCH BLOCK NONSPECIFIC ST & T-WAVE ABNORMALITY- DIFFUSE LEADS BASELINE ARTIFACT- III ABNORMAL ECG COMPARED TO ECG 07/26/2022 10:03:46 HEART RATE HAS INCREASED Electronically Signed On 07-27-2022 6:42:09 CORPORATE CLAIMS EXAMINER by Juan Luis Mcfadden D.O.
[2022-07-27] VITALS (13 sets, daily range): BP systolic 97–105; BP diastolic 59–68; PULSE 83–121; RESP 16–20; TEMP 36.3–36.7; O2SAT 88–95
[2022-07-27 04:08] LABS: Hemoglobin 11.8 g/dL (12.0-15.0)
[2022-07-27 04:10] LABS: Immature Platelet Fraction Pct 7.5 % (0.9-11.2)
[2022-07-27 04:14] LABS: Hematocrit 35.5 % (37.0-47.0); Red Blood Count 3.93 M/mm3 (4.2-5.4); White Blood Count 14.2 K/mm3 (4.5-10.0)
[2022-07-27 04:15] LABS: Mean Corpuscular HGB Conc 33.2 g/dl (32-36); Mean Corpuscular Volume 90.3 fl (80-100); Mean Platelet Volume 10.6 fl (7.4-10.4); Platelet Count Result 704 k/mm3 (150-375); Red Cell Distribution Width 13.8 % (11.5-14.5)
[2022-07-27 04:18] LABS: Anion Gap 2 mmol/L (8-16); Blood Urea Nitrogen 14 mg/dL (7-17); Calcium 8.5 mg/dL (8.4-10.2); Carbon Dioxide 31 mmol/L (22-30); Chloride 102 mmol/L (98-107); Estimated CRCL calculation 78 ml/min; Estimated Glomerular Filt Rate > 60; Glucose 105 mg/dL (65-110); Potassium 3.6 mmol/L (3.4-5.0); Sodium 135 mmol/L (137-145)
[2022-07-27] MEDS: IBUPROFEN 400 MG TABLET PO ×3 (08:56→23:47)
[2022-07-27] MEDS: POTASSIUM CHLORIDE 20 MEQ TABLET.ER 40 MEQ PO (08:56)
[2022-07-27] MEDS: SOTALOL HCL 80 MG TABLET PO ×2 (08:56→21:14)
[2022-07-27] MEDS: COLCHICINE 0.6 MG TABLET PO ×2 (08:56→21:13)
[2022-07-27] MEDS: APIXABAN 5 MG TABLET PO ×2 (08:56→21:14)
[2022-07-27] MEDS: PANTOPRAZOLE 40 MG TABLET PO (08:56)
--- NOTE | 2022-07-27 11:00 | ECG_ITS ---
Measurements Intervals [place] Rate: 85 P: [place]: 0 QRS: 43 QRSD: 84 T: 0 QT: 358 QTc: 427 Interpretive Statements ATRIAL FIBRILLATION NONSPECIFIC T-WAVE ABNORMALITY- DIFFUSE LEADS ABNORMAL ECG COMPARED TO ECG 07/26/2022 23:39:04 NO SIGNIFICANT CHANGES Electronically Signed On 07-27-2022 11:15:03 MORTGAGE CLOSING CLERK by Juan Luis Mcfadden D.O.
[2022-07-27] MEDS: modafiniL (*CRX) 200 MG TABLET PO (12:37)
--- NOTE | 2022-07-27 15:40 | PM.IMPN ---
Progress Note: A&P Assessment and Plan (1) Atrial fibrillation with rapid ventricular response: Code(s): I48.91 - Unspecified atrial fibrillation Status: Acute Assessment and Plan: Patient admitted from the ED for afib RVR. She was seen in her School Age Program Associate's office today and EKG showed afib RVR 140s. Admit to IMU Monitor telemetry Consult Cardiology and appreciate recommendations. YOCASTA cardioversion x2 on 07/13/22 and 07/20/22 Initiated on sotalol 80 mg BID per Cardiology, first dose 07/25/22 at 2100 Metoprolol succinate 50 mg PO daily, decreased dose Monitor electrolytes - K 3.7, magnesium 2.3 EKG in am daily for QTc monitoring (2) Obstructive sleep apnea on CPAP: Code(s): G47.33 - Obstructive sleep apnea (adult) (pediatric); Z99.89 - Dependence on other enabling machines and devices Status: Chronic Assessment and Plan: Chronic, continue CPAP for naps and HS. (3) Pericarditis: Qualifiers: Pericarditis type: unspecified type Chronicity: unspecified Qualified Code(s): I31.9 - Disease of pericardium, unspecified Code(s): I31.9 - Disease of pericardium, unspecified Status: Resolved Assessment and Plan: Diagnosed 07/12/22 during previous admission. Continue colchicine and ibuprofen. 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 (5) Post-viral cough syndrome: Code(s): R05.8 - Other specified cough Status: Acute Assessment and Plan: Continue tessalon perles 100 mg PO TID PRN cough Pt requested Claritin due to her use at home. Plan CODE STATUS: FULL CODE Disposition: from home. GI prophylaxis: Continue protonix Diet: Heart healthy Subjective Date/time seen: 07/27/22 15:40 Interval history: Patient is a 67 yo female with APRYL, narcolepsy, hereditary spherocytosis, and paroxysmal atrial fibrillation s/p YOCASTA cardioversion on 07/13/22 and again on 07/20/22. She presented to the ED from her School Age Program Associate's office for sotalol induction for afib RVR. Patient doing well today with minimal complaints. She is worried about her repeat EKG. Patient still has postviral cough. Patient worried about pericarditis and that she is going to get it again. I believe patient has anxiety due to recent admissions and new chronic medical diseases. patient does complain of some muscular chest pain that is worse when she coughs it has been present since before admission. She did have an episode of dizziness this morning but has since resolved. Patient denies shortness of breath, Heart palpitations, feeling faint, Nausea and vomiting Review of Systems Review of Systems: All systems reviewed & are unremarkable except as noted in HPI and below Exam Narrative: GENERAL: Comfortable, no acute distress HENMT: moist mucous membranes EYES: EOM intact b/l NECK: no lymphadenopathy RESPIRATORY: clear to auscultation CARDIO: Distant heart sounds GI: soft, nontender, bowel sounds present SKIN: no rashes EXTREMITIES: no edema, redness or tenderness Objective Data Vital Signs Vital Signs: Vital Signs - 24 hr 07/26/22 15:45 07/26/22 16:00 07/26/22 16:00 Temperature 97.3 F L Pulse Rate 79 90 Respiratory Rate 20 Blood Pressure 125/82 Pulse Oximetry 94 Oxygen Delivery Room Air 07/26/22 18:00 07/26/22 18:29 07/26/22 20:00 Temperature 97.4 F L Pulse Rate 111 H 117 H Respiratory Rate 20 Blood Pressure 121/67 Pulse Oximetry 93 Oxygen Delivery Room Air 07/26/22 21:32 07/26/22 20:00 07/26/22 20:00 Temperature Pulse Rate 110 H 110 H 112 H Respiratory Rate 20 Blood Pressure Pulse
--- NOTE | 2022-07-27 16:45 | PM.PNCARD ---
Progress Note: A&P Assessment and Plan (1) Atrial fibrillation with rapid ventricular response: Code(s): I48.91 - Unspecified atrial fibrillation Status: Acute Assessment and Plan: Sotalol 80 mg twice daily started on evening of 07/25. Her 5TH dose will be administered on evening of 07/27. QTc acceptable thus far. NPO after midnight for elective electrical cardioversion with assistance of CPAP to tolerate sedation tomorrow morning prior to discharge. Continue anticoagulation without interruption including tomorrow morning Along with sotalol 80 mg. Risks and benefits, and alternatives discussed. Will need to sure she is hemodynamically stable without other contraindications. Anticipate may be able to discontinue metoprolol and continue sotalol if successful cardioversion. Patient within be stable for discharge tomorrow without issue if successful cardioversion. Check BMP, CBC in a.m.. No need for YOCASTA guidance. Continue Eliquis 5 mg b.i.d. without interruption.? (2) Encounter for monitoring sotalol therapy: Code(s): Z51.81 - Encounter for therapeutic drug level monitoring; Z79.899 - Other truck terminal manager (current) drug therapy Status: Acute Assessment and Plan: QTC stable thus far, cont ECG per protocol last dose this evening. Avoid QT prolonging drugs.? Tolerating Sotalol 80 mg twice daily thus far.? However, patient remains in atrial fibrillation so will plan for cardioversion prior to discharge as above. (3) Pericarditis: Qualifiers: Pericarditis type: unspecified type Chronicity: unspecified Qualified Code(s): I31.9 - Disease of pericardium, unspecified Code(s): I31.9 - Disease of pericardium, unspecified Status: Resolved Assessment and Plan: Significant improvement on colchicine 0.6 mg twice daily and ibuprofen 4 mg p.o. q.8 hours, however, symptoms remain persistent but mild.? There is no rub on exam.? Increased bleeding risk with colchicine, ibuprofen and Eliquis, however, given her treatment for pericarditis this must be continued as patient continues to have improvement but residual symptoms.? Patient doing well thus far.? Follow H&H. Subjective Date/time seen: date of service:07/27/22 16:46 Follow-up for atrial fibrillation with rapid ventricle response, sotalol loading Interval history: Reason for visit: Atrial fibrillation with RVR Date of service 07/27/2022: Patient feeling okay. Minimal chest discomfort no significant palpitations. Breathing stable. BP a little low at times metoprolol held today. No significant dizziness. remains in AFib will telemetry heart rate 90s to 100s Review of Systems Review of Systems: All systems reviewed & are unremarkable except as noted in HPI and below Constitutional: Constitutional: Reports as per HPI and Reports no additional constitutional complaints Eyes: Eyes: Reports as per HPI and Reports no additional eye complaints ENT: Reports system reviewed and no additional complaints, except as documented and Reports as per HPI Cardiovascular: Cardiovascular: Reports as per HPI and Reports no additional cardiovascular complaints Respiratory: Respiratory: Reports as per HPI and Reports no additional respiratory complaints Gastrointestinal: Gastrointestinal: Reports as per HPI and Reports no additional gastrointestinal complaints Genitourinary: Genitourinary: Reports as per HPI Musculoskeletal: Musculoskeletal: Reports no additional musculoskeletal complaints and Reports as per HPI Integumentary/Breasts: Skin/Breast: Reports system reviewed and no additional complaints, except as docu and Reports as per HPI Neurologic: Reports system reviewed and no additional complaints, except as documented and Reports as per HPI Psychiatric: Psychiatric: Reports no additional psychiatric complaints and Reports as per HPI Endocrine: Endocrine: Reports no additional endocrine complaints and Reports as per HPI [place]
[2022-07-27] MEDS: LORATADINE 5 MG TABLET PO (21:13)
--- NOTE | 2022-07-27 23:30 | ECG_ITS ---
Measurements Intervals [place] Rate: 91 P: [place]: 0 QRS: 42 QRSD: 87 T: 0 QT: 340 QTc: 419 Interpretive Statements ATRIAL FIBRILLATION NONSPECIFIC T-WAVE ABNORMALITY- DIFFUSE LEADS BASELINE ARTIFACT- I, III, AVL, V2 ABNORMAL ECG COMPARED TO ECG 07/27/2022 11:04:25 NO SIGNIFICANT CHANGES Electronically Signed On 07-28-2022 6:34:17 [employer]OOF PLUMBER by Juan Luis Mcfadden D.O.
[2022-07-28] VITALS (20 sets, daily range): BP systolic 90–117; BP diastolic 52–95; PULSE 64–105; RESP 14–28; TEMP 36.2–37.2; O2SAT 91–98
[2022-07-28 05:01] LABS: Hematocrit 34.6 % (37.0-47.0); Hemoglobin 11.2 g/dL (12.0-15.0); Mean Corpuscular HGB Conc 32.4 g/dl (32-36); Mean Corpuscular Hemoglobin 29.9 pg (26-34); Mean Corpuscular Volume 92.5 fl (80-100); Mean Platelet Volume 10.6 fl (7.4-10.4); Platelet Count Result 701 k/mm3 (150-375); Red Blood Count 3.74 M/mm3 (4.2-5.4); White Blood Count 15.4 K/mm3 (4.5-10.0)
[2022-07-28 05:20] LABS: Anion Gap 3 mmol/L (8-16); Blood Urea Nitrogen 13 mg/dL (7-17); Calcium 8.4 mg/dL (8.4-10.2); Carbon Dioxide 29 mmol/L (22-30); Chloride 105 mmol/L (98-107); Estimated CRCL calculation 62 ml/min; Estimated Glomerular Filt Rate > 60; Glucose 104 mg/dL (65-110); Potassium 3.9 mmol/L (3.4-5.0); Sodium 137 mmol/L (137-145)
--- NOTE | 2022-07-28 08:31 | ECG_ITS ---
Measurements Intervals [place] Rate: 95 P: [place]: 0 QRS: 38 QRSD: 85 T: 0 QT: 335 QTc: 421 Interpretive Statements ATRIAL FIBRILLATION NONSPECIFIC ST & T-WAVE ABNORMALITY- ANT/HIGH LAT LEADS ABNORMAL ECG COMPARED TO ECG 07/27/2022 23:27:13 NO SIGNIFICANT CHANGES Electronically Signed On 07-28-2022 9:48:01 BUCKLE SEWER by Juan Luis Mcfadden D.O.
[2022-07-28] MEDS: PANTOPRAZOLE 40 MG TABLET PO (08:56)
[2022-07-28] MEDS: modafiniL (*CRX) 200 MG TABLET PO ×2 (08:56→12:34)
[2022-07-28] MEDS: IBUPROFEN 400 MG TABLET PO ×2 (08:56→15:12)
[2022-07-28] MEDS: SOTALOL HCL 80 MG TABLET PO ×2 (08:56→21:25)
[2022-07-28] MEDS: POTASSIUM CHLORIDE 20 MEQ TABLET.ER 40 MEQ PO (08:56)
[2022-07-28] MEDS: METOPROLOL SUCCINATE EXT REL 50 MG TABCR PO (08:56)
[2022-07-28] MEDS: APIXABAN 5 MG TABLET PO ×2 (08:56→20:50)
[2022-07-28] MEDS: COLCHICINE 0.6 MG TABLET PO ×2 (08:57→20:50)
--- NOTE | 2022-07-28 09:12 | PM.PNCARD ---
Progress Note: A&P Assessment and Plan (1) Atrial fibrillation with rapid ventricular response: Code(s): I48.91 - Unspecified atrial fibrillation Status: Acute Assessment and Plan: Sotalol 80 mg twice daily started on evening of 07/25. She has completed her 5TH dose will be administered on evening of 07/27. QTc acceptable thus far. No need for YOCASTA guidance. Continue Eliquis 5 mg b.i.d. without interruption.? O2 sats 95% on room air. BP stable. Discussed risks versus benefits and concern with regards to hypoxia and or hypotension with sedation. Will utilize support with CPAP. Patient wishes to proceed with attempted cardioversion prior to discharge. Patient verbalized understanding of the risks versus benefits. If successful cardioversion and patient tolerates well anticipate discharge home later today. She has received Eliquis already this morning along with her sotalol and metoprolol. Anticipate will discontinue metoprolol. (2) Encounter for monitoring sotalol therapy: Code(s): Z51.81 - Encounter for therapeutic drug level monitoring; Z79.899 - Other buttermaker continuous churn (current) drug therapy Status: Acute Assessment and Plan: QTC stable thus far, cont ECG per protocol last dose this evening. Avoid QT prolonging drugs.? Tolerating Sotalol 80 mg twice daily thus far.? However, patient remains in atrial fibrillation so will plan for cardioversion prior to discharge as above. (3) Pericarditis: Qualifiers: Pericarditis type: unspecified type Chronicity: unspecified Qualified Code(s): I31.9 - Disease of pericardium, unspecified Code(s): I31.9 - Disease of pericardium, unspecified Status: Resolved Assessment and Plan: Significant improvement on colchicine 0.6 mg twice daily and ibuprofen 4 mg p.o. q.8 hours, however, symptoms remain persistent but mild.? There is no rub on exam.? Increased bleeding risk with colchicine, ibuprofen and Eliquis, however, given her treatment for pericarditis this must be continued as patient continues to have improvement but residual symptoms.? Patient doing well thus far.? Follow H&H. (4) Chronic anticoagulation: Code(s): Z79.01 - equipment operator intermodal yard (current) use of anticoagulants Status: Acute Assessment and Plan: continue Eliquis 5 mg b.i.d. without interruption. (5) Obstructive sleep apnea on CPAP: Code(s): G47.33 - Obstructive sleep apnea (adult) (pediatric); Z99.89 - Dependence on other enabling machines and devices Status: Chronic Assessment and Plan: Continue support with CPAP. Subjective Date/time seen: Date of service:07/28/22 09:12 Interval history: Reason for visit: Atrial fibrillation with RVR Date of service 07/27/2022: Patient feeling okay. Minimal chest discomfort no significant palpitations. Breathing stable. BP a little low at times metoprolol held today. No significant dizziness. remains in AFib will telemetry heart rate 90s to 100s Date of service 07/28/2022: Patient feeling fine this morning. Denies shortness of breath. Blood pressure stable. Remains in AFib as she was yesterday. No new issues overnight. Chest x-ray done yesterday afternoon with probable atelectasis. Afebrile. NPO for possible cardioversion. Review of Systems Review of Systems: All systems reviewed & are unremarkable except as noted in HPI and below Constitutional: Constitutional: Reports as per HPI and Reports no additional constitutional complaints Eyes: Eyes: Reports as per HPI and Reports no additional eye complaints ENT: Reports system reviewed and no additional complaints, except as documented and Reports as per HPI Cardiovascular: Cardiovascular: Reports as per HPI and Reports no additional cardiovascular complaints Respiratory: Respiratory: Reports as per HPI and Reports no additional respiratory complaints Gastrointestinal: Gastrointestinal: Reports as per HPI and Reports no ad
[2022-07-28] MEDS: AMOXICILLIN/CLAVULANATE K 875-125 MG TAB 1 TABLET PO ×2 (09:35→20:50)
--- NOTE | 2022-07-28 10:37 | WPDMODSED ---
Moderate Sedation Note-Pt Data Patient Data Diagnosis: atrial fibrillation Present Complaint: none Procedure to be performed/Plan: elective electrical cardioversion Allergies Allergy/AdvReac Type Severity Reaction Status Date / Time clindamycin Allergy C Diff Verified 07/12/22 04:18 Home Medications Medication Instructions Recorded Confirmed Type modafinil 200 mg tablet 200 mg PO BID 1 month #60 tabs 06/24/22 07/25/22 Rx apixaban 5 mg tablet (Eliquis) 5 mg PO BID 07/12/22 07/25/22 History benzonatate 200 mg capsule 200 mg PO TID PRN cough #21 caps 07/12/22 07/25/22 Rx colchicine 0.6 mg tablet (Colcrys) 0.6 mg PO Q12HR #60 tabs 07/15/22 07/25/22 Rx ibuprofen 400 mg tablet 400 mg PO Q8HR #90 tabs 07/15/22 07/25/22 Rx levofloxacin 500 mg tablet 500 mg PO DAILY #5 tabs 07/15/22 07/25/22 Rx pantoprazole 40 mg tablet,delayed 40 mg PO QAM #30 tabs 07/15/22 07/25/22 Rx release loratadine 10 mg tablet (Claritin) 10 mg PO DAILY 07/19/22 07/25/22 History metoprolol succinate 25 mg 100 mg PO QAM 07/19/22 07/25/22 History tablet,extended release 24 hr (Toprol XL) polyethylene glycol 3350 17 17 g PO DAILY PRN Constipation 07/19/22 07/25/22 History gram/dose oral powder (Miralax) Current Medications: Active Medications Acetaminophen (Acetaminophen 325 Mg Tablet) 650 mg PO Q6H PRN PRN Reason: Mild Pain (1-3) or Fever Amoxicillin/Clavulanate Potassium (Amoxicillin/Clavulanate K 875-125 Mg Tab) 1 tablet PO Q12HR MICHELLE Last Admin: 07/28/22 09:35 Dose: 1 tablet Apixaban (Apixaban 5 Mg Tablet) 5 mg PO Q12HR MICHELLE Last Admin: 07/28/22 08:56 Dose: 5 mg Benzonatate (Benzonatate 100 Mg Capsule) 100 mg PO TID PRN PRN Reason: cough Colchicine (Colchicine 0.6 Mg Tablet) 0.6 mg PO Q12HR MICHELLE Last Admin: 07/28/22 08:57 Dose: 0.6 mg Ibuprofen (Ibuprofen 400 Mg Tablet) 400 mg PO Q8H [facility] Last Admin: 07/28/22 08:56 Dose: 400 mg Loratadine (Loratadine 5 Mg Tablet) 5 mg PO [facility] Last Admin: 07/27/22 21:13 Dose: 5 mg Metoprolol Succinate (Metoprolol Succinate Ext Rel 50 Mg Tabcr) 50 mg PO [facility] Last Admin: 07/28/22 08:56 Dose: 50 mg Modafinil (Modafinil (*Crx) 200 Mg Tablet) 200 mg PO [facility] Last Admin: 07/28/22 08:56 Dose: 200 mg Modafinil (Modafinil (*Crx) 200 Mg Tablet) 200 mg PO NOON [facility] Last Admin: 07/27/22 12:37 Dose: 200 mg Pantoprazole Sodium (Pantoprazole 40 Mg Tablet) 40 mg PO [facility] Last Admin: 07/28/22 08:56 Dose: 40 mg Polyethylene Glycol (Polyethylene Glycol 3350 17 Gm Powd.Pack) 17 gm PO QA PRN PRN Reason: Constipation Potassium Chloride (Potassium Chloride 20 Meq Tablet.Er) 40 meq PO DAILY@0800 [facility] Last Admin: 07/28/22 08:56 Dose: 40 meq Prochlorperazine Edisylate (Prochlorperazine Edisylate 10 Mg/2 Ml Vial) 10 mg IV PUSH Q6H PRN PRN Reason: Nausea And Vomiting Sotalol HCl (Sotalol Hcl 80 Mg Tablet) 80 mg PO Q12HR [facility] Last Admin: 07/28/22 08:56 Dose: 80 mg Sedation/Anesthesia: No previous sedation/anesthesia problems (including family history). [facility] Past Medical History Medical History Chronic anticoagulation Esophageal stricture History of esophageal dilatation. Hereditary spherocytosis Narcolepsy Obstructive sleep apnea on CPAP Paroxysmal atrial fibrillation Pericarditis Had pericarditis when young, and again in 06/2022. 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 Family History Family History Father Family history of emphysema Mother Lymphoma Macula lutea degeneration Acute rheumatoid arthritis Sibling Atrial fibrillation Cerebrovascular accident Social History Social History Social History: Surrogate medica
--- NOTE | 2022-07-28 10:55 | P.PCNCVR_ITS ---
Cardioversion Cardioversion Date of procedure: 07/28/22 Procedure: elective electrical cardioversion Pre-op diagnosis: atrial fibrillation Post-op diagnosis: Same Indications: refractory atrial fibrillation Description of procedure: Brief history present illness: Patient is a pleasant 67-year-old female with history refractory atrial fibrillation, pericarditis, APRYL on CPAP status post cardioversion with prompt reversion to atrial fibrillation on 2 occasions maintained on systemic anticoagulation without interruption readmitted with atrial fibrillation having completed sotalol loading now referred for repeat attempt at cardioversion to restore sinus rhythm. Cardioversion will be performed with the assistance of CPAP given her history of APRYL. Procedure in detail: After verbal and written informed consent was obtained the patient risks, benefits, and alternatives explained in detail the patient agreed to proceed wit h the plan of care as outlined above. Patient was evaluated at bedside in the [facility] procedure room. On examination, neck was supple with normal range of motion, no restrictions to opening of the oral cavity, jaw angle and posterior hypopharynx was clear. Lungs were clear to auscultation. Patient was placed in appropriate 30 to 45 degree angle in a supine position. Patient was monitored throughout the study with telemetry, oxygen saturation, end-tidal CO2 monitoring, blood pressure, heart rate, and respirations. Anterior and posterior defibrillator pads placed in the appropriate positions. After confirmation of adequate sedation electrical cardioversion was carried out without complication. Patient tolerated the procedure well without difficulty. Sedation: Moderate Sedation/Anesthesia administration: Patient denied previous intolerance or complications with anesthesia/sedation. Please see sedation note for documentation of the pre-procedure physical examination. A total of 1mg intravenous Versed and a total of 50mcg intravenous Fentanyl was utilized for moderate sedation. Sedation start time was 1046 and end time was 1054 for a total of 8 minutes [id number] intra-procedure time. Sedation was administered by a qualified observer Deepali Bender RN under my supervision with intra-procedure [id number] observation and management throughout the entirety of the procedure. There were no other issues or complications and patient tolerated the procedure well and sedation protocol well and I was present for the entirety. Findings: Elective electrical cardioversion: After confirmation of adequate sedation and persistence of atrial fibrillation, 200 joules synched biphasic energy x1 was delivered with immediate yarsanism of sinus rhythm. Twelve lead EKG was obtained postprocedure confirming sinus rhythm. Complications: None Conclusion: Successful yarsanism of sinus rhythm with 200 joules synched biphasic energy x1. Post cardioversion 12 lead ECG revealed sinus rhythm heart rate 63 beats per minute with a QTc of 419 milliseconds. Recommendations: Discontinue metoprolol and continue sotalol 80 mg twice daily. Continue Eliquis 5 mg b.i.d. without interruption unless advised and in particular for the next 30 days post cardioversion. Patient stable for discharge home from cardiovascular perspective follow-up with Dr. Nesbitt and 12 lead ECG in our office 1 week post discharge.
--- NOTE | 2022-07-28 11:00 | ECG_ITS ---
Measurements Intervals [place] Rate: 63 P: 44 UT: 169 QRS: 23 QRSD: 85 T: 49 QT: 412 QTc: 423 Interpretive Statements SINUS RHYTHM NONSPECIFIC T-WAVE ABNORMALITY- ANT/INF LEADS BASELINE WANDER- I, II, V1, V3, V6 BORDERLINE ECG COMPARED TO ECG 07/28/2022 09:15:05 SINUS RHYTHM NOW PRESENT Electronically Signed On 07-28-2022 11:11:22 EMR TRAINER by Juan Luis Mcfadden D.O.
--- NOTE | 2022-07-28 14:56 | PM.DS ---
DS: Admitting Diagnosis Discharge Date 07/28/22 Admitting Diagnosis AFib RVR DS: Discharge Diagnosis Discharge Diagnosis (1) Atrial fibrillation with rapid ventricular response: Code(s): I48.91 - Unspecified atrial fibrillation Status: Acute Assessment and Plan: Patient admitted from the ED for afib RVR. She was seen in her Retread Mold Operator's office today and EKG showed afib RVR 140s. Admit to IMU Monitor telemetry Consult Cardiology and appreciate recommendations. YOCASTA cardioversion x2 on 07/13/22 and 07/20/22 Initiated on sotalol 80 mg BID per Cardiology, first dose 07/25/22 at 2100 Metoprolol succinate 50 mg PO daily, decreased dose Monitor electrolytes - K 3.7, magnesium 2.3 EKG in am daily for QTc monitoring (2) Obstructive sleep apnea on CPAP: Code(s): G47.33 - Obstructive sleep apnea (adult) (pediatric); Z99.89 - Dependence on other enabling machines and devices Status: Chronic Assessment and Plan: Chronic, continue CPAP for naps and HS. (3) Pericarditis: Qualifiers: Chronicity: unspecified Pericarditis type: unspecified type Qualified Code(s): I31.9 - Disease of pericardium, unspecified Code(s): I31.9 - Disease of pericardium, unspecified Status: Resolved Assessment and Plan: Diagnosed 07/12/22 during previous admission. Continue colchicine and ibuprofen. 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 (5) Post-viral cough syndrome: Code(s): R05.8 - Other specified cough Status: Acute Assessment and Plan: Continue tessalon perles 100 mg PO TID PRN cough Pt requested Claritin due to her use at home. Added Augmentin to be continued for 5 days due to chest x-ray revealing atelectasis versus pneumonia. Plan CODE STATUS: FULL CODE Disposition: from home. GI prophylaxis: Continue protonix Diet: Heart healthy DS: Summary Hospital Course Reason for hospitalization: AFib RVR Hospital Course: -year-old female with the history of APRYL, narcolepsy, right sahil serosa ptosis, paroxysmal atrial fibrillation present to the ED on 07/25/2022 for AFib RVR. Patiently recently admitted to other times within the past month for AFib RVR. She received a YOCASTA cardioversion on 07/13/2022 and again on 07/20/2022. Patient had AFib bed on and it alarmed her that she had irregular heartbeat. Patient had called her color room attendant and she was told to go to the ED. patient had had chest pain previous to ED arrival and pain in between her shoulder blades. Patient had no symptoms of nausea, vomiting, diaphoresis, arm jaw or neck pain. Patient had woken up and stated that she was dizzy with some shortness of breath. While in the ED she was found to have a heart rate of 131 and a white count of 14.5. EKG revealed AFib with RVR. Troponin negative. Chest x-ray revealed bibasilar pulmonary edema versus atelectasis. Cardiology consulted. Patient was started on sotalol 80 mg twice daily that was started on to 27 in the evening. Patient remained in the hospital during this time to obtain serial EKGs and monitor QTC. Patient on metoprolol 100 mg daily prior to ED arrival. This was decreased to 50 mg daily due to the addition sotalol. Patient on Eliquis and this was continued. After 5 doses of sotalol QTC remained stable. Patient underwent elective electrical cardioversion on 07/28/2022. Cardioversion successful. It is recommended the patient discontinue metoprolol and continue sotalol LD mg twice daily and follow-up with color room attendant in 1 week. Patient recently admitted and diagnosed with pericarditis. While in the hospi
--- NOTE | 2022-07-28 15:35 | PM.IMPN ---
Progress Note: A&P Assessment and Plan (1) Atrial fibrillation with rapid ventricular response: Code(s): I48.91 - Unspecified atrial fibrillation Status: Acute Assessment and Plan: Patient admitted from the ED for afib RVR. She was seen in her Manager Of Enterprise's office today and EKG showed afib RVR 140s. Admit to IMU Monitor telemetry Consult Cardiology and appreciate recommendations. YOCASTA cardioversion x2 on 07/13/22 and 07/20/22 Initiated on sotalol 80 mg BID per Cardiology, first dose 07/25/22 at 2100 Monitor electrolytes EKG in am daily for QTc monitoring 07/28/22 patient underwent cardiac conversion. Successful. Metoprolol discontinued (2) Obstructive sleep apnea on CPAP: Code(s): G47.33 - Obstructive sleep apnea (adult) (pediatric); Z99.89 - Dependence on other enabling machines and devices Status: Chronic Assessment and Plan: Chronic, continue CPAP for naps and HS. (3) Pericarditis: Qualifiers: Chronicity: unspecified Pericarditis type: unspecified type Qualified Code(s): I31.9 - Disease of pericardium, unspecified Code(s): I31.9 - Disease of pericardium, unspecified Status: Resolved Assessment and Plan: Diagnosed 07/12/22 during previous admission. Continue colchicine and ibuprofen. 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 (5) Post-viral cough syndrome: Code(s): R05.8 - Other specified cough Status: Acute Assessment and Plan: Continue tessalon perles 100 mg PO TID PRN cough Pt requested Claritin due to her use at home. Pt had repeat cxr revealing atelectasis vs pneumonia. Pt wbc trending up. Added Augmentin and doxy to be continued for 5 days due to chest x-ray revealing atelectasis versus pneumonia. If white count improves tomorrow, will plan on discharge. Plan CODE STATUS: FULL CODE Disposition: from home. GI prophylaxis: Continue protonix Diet: Heart healthy Subjective Date/time seen: 07/28/22 15:35 Interval history: Patient sitting up in bed feeling well. Patient has had increase in white blood cell count and chest x-ray revealed atelectasis versus pneumonia. With feel comfortable keeping patient for 1 more day and starting antibiotic therapy to see if white blood cell count improves. Patient is still having some lingering chest discomfort. patient denies shortness of breath, nausea, vomiting, fever, body aches, chills, diarrhea and productive cough. Still having a lingering dry cough. Review of Systems Review of Systems: All systems reviewed & are unremarkable except as noted in HPI and below Exam Narrative: GENERAL: Comfortable, no acute distress HENMT: moist mucous membranes EYES: EOM intact b/l NECK: no lymphadenopathy RESPIRATORY: clear to auscultation CARDIO: Irregular rhythm, rate controlled GI: soft, nontender, bowel sounds present SKIN: no rashes EXTREMITIES: no edema, redness or tenderness Objective Data Vital Signs Vital Signs: Vital Signs - 24 hr 07/27/22 16:00 07/27/22 16:00 07/27/22 16:00 Temperature 97.7 F Pulse Rate 99 113 H Respiratory Rate 16 Blood Pressure 105/67 Pulse Oximetry 93 Oxygen Delivery Room Air Oxygen Flow Rate 07/27/22 20:00 07/27/22 20:00 07/27/22 20:00 Temperature 97.4 F L Pulse Rate 91 98 98 Respiratory Rate 16 16 Blood Pressure 100/59 L Pulse Oximetry 92 92 Oxygen Delivery Room Air Oxygen Flow Rate 07/27/22 21:14 07/27/22 22:00 07/28/22 00:00 Temperature 97.4 F L Pulse Rate 95 106 H 102 H Respiratory Rate 14 Blood Pressure 116/69 Pulse Oximetry 94 Oxygen Delivery
[2022-07-28] MEDS: DOXYCYCLINE HYCLATE 100 MG TABLET PO (20:50)
[2022-07-29] VITALS (13 sets, daily range): BP systolic 105–119; BP diastolic 54–67; PULSE 62–79; RESP 14–22; TEMP 35.7–36.8; O2SAT 90–93
[2022-07-29 04:42] LABS: Hematocrit 34.6 % (37.0-47.0); Mean Corpuscular HGB Conc 31.8 g/dl (32-36); Mean Corpuscular Hemoglobin 28.9 pg (26-34); Mean Corpuscular Volume 91.1 fl (80-100); Mean Platelet Volume 10.7 fl (7.4-10.4); Platelet Count Result 675 k/mm3 (150-375); Red Cell Distribution Width 14.1 % (11.5-14.5); White Blood Count 14.5 K/mm3 (4.5-10.0)
[2022-07-29 04:56] LABS: Anion Gap 4 mmol/L (8-16); Blood Urea Nitrogen 14 mg/dL (7-17); Calcium 8.8 mg/dL (8.4-10.2); Carbon Dioxide 29 mmol/L (22-30); Chloride 102 mmol/L (98-107); Estimated CRCL calculation 78 ml/min; Estimated Glomerular Filt Rate > 60; Glucose 103 mg/dL (65-110); Magnesium 2.2 mg/dL (1.6-2.3); Potassium 4.5 mmol/L (3.4-5.0); Sodium 135 mmol/L (137-145)
[2022-07-29] MEDS: BENZONATATE 100 MG CAPSULE PO (09:01)
[2022-07-29] MEDS: SOTALOL HCL 80 MG TABLET PO ×2 (09:01→20:20)
[2022-07-29] MEDS: PANTOPRAZOLE 40 MG TABLET PO (09:02)
[2022-07-29] MEDS: APIXABAN 5 MG TABLET PO ×2 (09:02→20:09)
[2022-07-29] MEDS: DOXYCYCLINE HYCLATE 100 MG TABLET PO ×2 (09:02→20:09)
[2022-07-29] MEDS: COLCHICINE 0.6 MG TABLET PO ×2 (09:02→20:09)
[2022-07-29] MEDS: LORATADINE 5 MG TABLET PO (09:02)
[2022-07-29] MEDS: AMOXICILLIN/CLAVULANATE K 875-125 MG TAB 1 TABLET PO ×2 (09:02→20:09)
[2022-07-29] MEDS: POTASSIUM CHLORIDE 20 MEQ TABLET.ER 40 MEQ PO (09:02)
[2022-07-29] MEDS: IBUPROFEN 400 MG TABLET PO ×2 (09:06→18:10)
--- NOTE | 2022-07-29 12:22 | ECG_ITS ---
Measurements Intervals [place] Rate: 61 P: 48 IN: 172 QRS: 23 QRSD: 97 T: 34 QT: 439 QTc: 443 Interpretive Statements SINUS RHYTHM WITH SINUS ARRHYTHMIA MINIMAL Q WAVES- INFERIOR LEADS ANTEROSEPTAL INFARCT, AGE INDETERMINATE BORDERLINE ST-T WAVE ABNORMALITY- HIGH LATERAL LEADS ABNORMAL ECG COMPARED TO ECG 07/28/2022 10:56:40 SINUS ARRHYTHMIA NOW PRESENT MYOCARDIAL INFARCT FINDING NOW PRESENT Electronically Signed On 07-29-2022 16:51:06 FINANCIAL SYSTEMS DIRECTOR by Juan Luis Mcfadden D.O.
--- NOTE | 2022-07-29 14:49 | PM.DS ---
DS: Admitting Diagnosis Discharge Date 07/29/22 Admitting Diagnosis AFib RVR DS: Discharge Diagnosis Discharge Diagnosis (1) Atrial fibrillation with rapid ventricular response: Code(s): I48.91 - Unspecified atrial fibrillation Status: Acute Assessment and Plan: Patient admitted from the ED for afib RVR. She was seen in her Fabricator Foam Rubber's office today and EKG showed afib RVR 140s. Admit to IMU Monitor telemetry Consult Cardiology and appreciate recommendations. YOCASTA cardioversion x2 on 07/13/22 and 07/20/22 Initiated on sotalol 80 mg BID per Cardiology, first dose 07/25/22 at 2100 Monitor electrolytes EKG in am daily for QTc monitoring 07/28/22 patient underwent cardiac conversion. Successful. Metoprolol discontinued Patient stated that she was having some intermittent chest/shoulder blade pain that came and went sometimes worse with laying down. She does have history of acute pericarditis recently as well as community-acquired pneumonia. Discussed this case with Cardiology, Gayathri Varghese, they recommended repeat EKG. pain is most likely atypical. If EKG normal patient can be discharged home. (2) Obstructive sleep apnea on CPAP: Code(s): G47.33 - Obstructive sleep apnea (adult) (pediatric); Z99.89 - Dependence on other enabling machines and devices Status: Chronic Assessment and Plan: Chronic, continue CPAP for naps and HS. (3) Pericarditis: Qualifiers: Chronicity: unspecified Pericarditis type: unspecified type Qualified Code(s): I31.9 - Disease of pericardium, unspecified Code(s): I31.9 - Disease of pericardium, unspecified Status: Resolved Assessment and Plan: Diagnosed 07/12/22 during previous admission. Continue colchicine and ibuprofen. 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 (5) Post-viral cough syndrome: Code(s): R05.8 - Other specified cough Status: Acute Assessment and Plan: Continue tessalon perles 100 mg PO TID PRN cough Pt requested Claritin due to her use at home. Pt had repeat cxr revealing atelectasis vs pneumonia. Pt wbc trending up. Added Augmentin and doxy to be continued for 5 days due to chest x-ray revealing atelectasis versus pneumonia. If white count improves tomorrow, will plan on discharge. Plan CODE STATUS: FULL CODE Disposition: from home. GI prophylaxis: Continue protonix Diet: Heart healthy DS: Summary Hospital Course Reason for hospitalization: AFib RVR Hospital Course: 67-year-old female with the history of APRYL, narcolepsy, right sahil serosa ptosis, paroxysmal atrial fibrillation present to the ED on 07/25/2022 for AFib RVR.? Patiently? recently admitted to other times within the past month for AFib RVR.? She received a YOCASTA cardioversion on 07/13/2022 and again on 07/20/2022.? Patient had AFib bed on and it alarmed her that she had irregular heartbeat.? Patient had? called her marine engineer cpvec and she was told to go to the ED. patient had had chest pain previous to ED arrival and pain in between her shoulder blades.? Patient had no symptoms of nausea, vomiting, diaphoresis, arm jaw or neck pain.? Patient had woken up and stated that she was dizzy with some shortness of breath.? While in the ED she was found to have a heart rate of 131 and a white count of 14.5.? EKG revealed AFib with RVR.? Troponin negative.? Chest x-ray revealed bibasilar pulmonary edema versus atelectasis. ? Cardiology consulted. ? Patient was started on sotalol 80 mg twice daily that was started on to 27 in the evening.? Patient remained in the hospital during this time to obtain serial EKGs and mo
--- NOTE | 2022-07-29 16:19 | PM.IMPN ---
Progress Note: A&P Assessment and Plan (1) Atrial fibrillation with rapid ventricular response: Code(s): I48.91 - Unspecified atrial fibrillation Status: Acute Assessment and Plan: Patient admitted from the ED for afib RVR. She was seen in her Rate Marker's office today and EKG showed afib RVR 140s. Admit to IMU Monitor telemetry Consult Cardiology and appreciate recommendations. YOCASTA cardioversion x2 on 07/13/22 and 07/20/22 Initiated on sotalol 80 mg BID per Cardiology, first dose 07/25/22 at 2100 Monitor electrolytes EKG in am daily for QTc monitoring 07/28/22 patient underwent cardiac conversion. Successful. Metoprolol discontinued (2) Obstructive sleep apnea on CPAP: Code(s): G47.33 - Obstructive sleep apnea (adult) (pediatric); Z99.89 - Dependence on other enabling machines and devices Status: Chronic Assessment and Plan: Chronic, continue CPAP for naps and HS. (3) Pericarditis: Qualifiers: Chronicity: unspecified Pericarditis type: unspecified type Qualified Code(s): I31.9 - Disease of pericardium, unspecified Code(s): I31.9 - Disease of pericardium, unspecified Status: Resolved Assessment and Plan: Diagnosed 07/12/22 during previous admission. Continue colchicine and ibuprofen. 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 (5) Post-viral cough syndrome: Code(s): R05.8 - Other specified cough Status: Acute Assessment and Plan: Continue tessalon perles 100 mg PO TID PRN cough Pt requested Claritin due to her use at home. Pt had repeat cxr revealing atelectasis vs pneumonia. Pt wbc trending up. Added Augmentin and doxy to be continued for 5 days due to chest x-ray revealing atelectasis versus pneumonia. (6) Chest pain: Code(s): R07.9 - Chest pain, unspecified Status: Acute Assessment and Plan: Patient stated that she was having some intermittent chest/shoulder blade pain that came and went sometimes worse with laying down. She does have history of acute pericarditis recently as well as community-acquired pneumonia. Discussed this case with Cardiology, Gayathri Varghese, they recommended repeat EKG. pain is most likely atypical. If EKG normal patient can be discharged home. Patient still feeling sick today. Patient with lingering cough. White count improved today. patient was having some worsening CP today. I contacted Gayathri Varghese and recommended repeat EKG. EKG compared to EKG done yesterday showed NSTEMI. I have reached out the Gayathri Varghese letting her know the results of the EKG. Troponin has been ordered. Plan CODE STATUS: FULL CODE Disposition: from home. GI prophylaxis: Continue protonix Diet: Heart healthy Subjective Date/time seen: 07/29/22 16:19 Interval history: Patient still feeling sick today. Patient with lingering cough. White count improved today. Patient was having some worsening CP today. Worse with inspiration and laying down. No point tenderness. Exam Narrative: GENERAL: Comfortable, no acute distress HENMT: moist mucous membranes EYES: EOM intact b/l NECK: no lymphadenopathy RESPIRATORY: clear to auscultation CARDIO: RRR CHEST: no tenderness to palpation GI: soft, nontender, bowel sounds present SKIN: no rashes EXTREMITIES: no edema, redness or tenderness Objective Data Vital Signs Vital Signs: Vital Signs - 24 hr 07/28/22 20:00 07/28/22 21:25 07/28/22 20:00 Temperature 97.8 F Pulse Rate 77 76 79 Respiratory Rate 16 Blood Pressure 103/52 L Pulse Oximetry 94 Oxygen Delivery 07/29/22 00:00 07/29/22
[2022-07-29 17:13] LABS: Lipase 76 U/L (23-300)
[2022-07-29 17:26] LABS: Troponin I < 0.012 ng/mL (0.000-0.034)
[2022-07-29 20:14] LABS: Troponin I < 0.012 ng/mL (0.000-0.034)
[2022-07-29] MEDS: SACCHAROMYCES BOULARDII 250 MG CAPSULE PO (20:20)
[2022-07-30] VITALS (11 sets, daily range): BP systolic 104–119; BP diastolic 58–72; PULSE 55–78; RESP 18–20; TEMP 36.2–36.6; O2SAT 95–97
[2022-07-30] MEDS: IBUPROFEN 400 MG TABLET PO ×2 (00:03→09:15)
[2022-07-30 01:24] LABS: Troponin I 0.012 ng/mL (0.000-0.034)
[2022-07-30 07:53] LABS: Hematocrit 37.3 % (37.0-47.0); Hemoglobin 11.9 g/dL (12.0-15.0); Immature Platelet Fraction Pct 7.2 % (0.9-11.2); Mean Corpuscular HGB Conc 31.9 g/dl (32-36); Mean Corpuscular Hemoglobin 29.5 pg (26-34); Mean Corpuscular Volume 92.6 fl (80-100); Mean Platelet Volume 10.9 fl (7.4-10.4); Platelet Count Result 805 k/mm3 (150-375); Red Blood Count 4.03 M/mm3 (4.2-5.4); Red Cell Distribution Width 14.5 % (11.5-14.5); White Blood Count 9.8 K/mm3 (4.5-10.0)
[2022-07-30 07:55] LABS: Alanine Aminotransferase 29 U/L (6-35); Albumin Level 3.5 g/dL (3.5-5.1); Alkaline Phosphatase 128 U/L (38-126); Anion Gap 4 mmol/L (8-16); Aspartate Amino Transferase 25 U/L (14-36); Bilirubin,Total 0.7 mg/dL (0.2-1.3); Blood Urea Nitrogen 14 mg/dL (7-17); Calcium 9.2 mg/dL (8.4-10.2); Carbon Dioxide 31 mmol/L (22-30); Chloride 104 mmol/L (98-107); Estimated CRCL calculation 77 ml/min; Estimated Glomerular Filt Rate > 60; Glucose 99 mg/dL (65-110); Sodium 139 mmol/L (137-145)
[2022-07-30] MEDS: POTASSIUM CHLORIDE 20 MEQ TABLET.ER 40 MEQ PO (09:04)
[2022-07-30] MEDS: SOTALOL HCL 80 MG TABLET PO (09:05)
[2022-07-30] MEDS: APIXABAN 5 MG TABLET PO (09:05)
[2022-07-30] MEDS: SACCHAROMYCES BOULARDII 250 MG CAPSULE PO (09:06)
[2022-07-30] MEDS: LORATADINE 5 MG TABLET PO (09:06)
[2022-07-30] MEDS: PANTOPRAZOLE 40 MG TABLET PO (09:06)
[2022-07-30] MEDS: COLCHICINE 0.6 MG TABLET PO (09:06)
[2022-07-30] MEDS: AMOXICILLIN/CLAVULANATE K 875-125 MG TAB 1 TABLET PO (09:06)
[2022-07-30] MEDS: modafiniL (*CRX) 200 MG TABLET PO (09:15)
--- NOTE | 2022-07-30 09:30 | PM.DS ---
DS: Admitting Diagnosis Discharge Date 07/30/22 Admitting Diagnosis AFib RVR DS: Discharge Diagnosis Discharge Diagnosis (1) Atrial fibrillation with rapid ventricular response: Code(s): I48.91 - Unspecified atrial fibrillation Status: Acute Assessment and Plan: Patient admitted from the ED for afib RVR. She was seen in her Box Printing Machine Operator's office today and EKG showed afib RVR 140s. Admit to IMU Monitor telemetry Consult Cardiology and appreciate recommendations. YOCASTA cardioversion x2 on 07/13/22 and 07/20/22 Initiated on sotalol 80 mg BID per Cardiology, first dose 07/25/22 at 2100 Monitor electrolytes EKG in am daily for QTc monitoring 07/28/22 patient underwent cardiac conversion. Successful. Metoprolol discontinued (2) Obstructive sleep apnea on CPAP: Code(s): G47.33 - Obstructive sleep apnea (adult) (pediatric); Z99.89 - Dependence on other enabling machines and devices Status: Chronic Assessment and Plan: Chronic, continue CPAP for naps and HS. (3) Pericarditis: Qualifiers: Chronicity: unspecified Pericarditis type: unspecified type Qualified Code(s): I31.9 - Disease of pericardium, unspecified Code(s): I31.9 - Disease of pericardium, unspecified Status: Resolved Assessment and Plan: Diagnosed 07/12/22 during previous admission. Continue colchicine and ibuprofen. 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 (5) Post-viral cough syndrome: Code(s): R05.8 - Other specified cough Status: Acute Assessment and Plan: Continue tessalon perles 100 mg PO TID PRN cough Pt requested Claritin due to her use at home. Pt had repeat cxr revealing atelectasis vs pneumonia. Pt wbc trending up. Added Augmentin and doxy to be continued for 5 days due to chest x-ray revealing atelectasis versus pneumonia. (6) Chest pain: Code(s): R07.9 - Chest pain, unspecified Status: Acute Assessment and Plan: Patient stated that she was having some intermittent chest/shoulder blade pain that came and went sometimes worse with laying down. She does have history of acute pericarditis recently as well as community-acquired pneumonia. Discussed this case with Cardiology, Gayathri Varghese, they recommended repeat EKG. pain is most likely atypical. Patient still feeling sick today. Patient with lingering cough. White count improved today. patient was having some worsening CP today. I contacted Gayathri Varghese and recommended repeat EKG. EKG compared to EKG done yesterday showed NSTEMI. I have reached out the Gayathri Varghese letting her know the results of the EKG. Did not believe that this was an acute finding. Troponin ,3,6 were negative. patient cleared by cardiology Plan CODE STATUS: FULL CODE Disposition: from home. GI prophylaxis: Continue protonix Diet: Heart healthy DS: Summary Hospital Course Reason for hospitalization: AFib RVR Hospital Course: 67-year-old female with the history of APRYL, narcolepsy, right sahil serosa ptosis, paroxysmal atrial fibrillation present to the ED on 07/25/2022 for AFib RVR.? Patiently? recently admitted to other times within the past month for AFib RVR.? She received a YOCASTA cardioversion on 07/13/2022 and again on 07/20/2022.? Patient had AFib bed on and it alarmed her that she had irregular heartbeat.? Patient had? called her evening sitter and she was told to go to the ED. patient had had chest pain previous to ED arrival and pain in between her shoulder blades.? Patient had no symptoms of nausea, vomiting, diaphoresis, arm jaw or neck pain.? Patient had woken up
[2022-07-30] MEDS: DOXYCYCLINE HYCLATE 100 MG TABLET PO (09:55)
--- NOTE | 2022-07-30 10:10 | PM.PNCARD ---
Progress Note: A&P Assessment and Plan (1) Atrial fibrillation with rapid ventricular response: Code(s): I48.91 - Unspecified atrial fibrillation Status: Acute Assessment and Plan: Sotalol 80 mg twice daily started on evening of 07/25. She has completed her 5TH dose will be administered on evening of 07/27. QTc acceptable thus far. No need for YOCASTA guidance. Continue Eliquis 5 mg b.i.d. without interruption.? (2) Encounter for monitoring sotalol therapy: Code(s): Z51.81 - Encounter for therapeutic drug level monitoring; Z79.899 - Other long term care phlebotomist (current) drug therapy Status: Acute Assessment and Plan: QTC stable thus far, cont ECG per protocol last dose this evening. Avoid QT prolonging drugs.? Tolerating Sotalol 80 mg twice daily thus far.? (3) Pericarditis: Qualifiers: Pericarditis type: unspecified type Chronicity: unspecified Qualified Code(s): I31.9 - Disease of pericardium, unspecified Code(s): I31.9 - Disease of pericardium, unspecified Status: Resolved Assessment and Plan: Significant improvement on colchicine 0.6 mg twice daily and ibuprofen 4 mg p.o. q.8 hours, however, symptoms remain persistent but mild.? There is no rub on exam.? Increased bleeding risk with colchicine, ibuprofen and Eliquis, however, given her treatment for pericarditis this must be continued as patient continues to have improvement but residual symptoms.? Patient doing well thus far.? Follow H&H. (4) Chronic anticoagulation: Code(s): Z79.01 - penitentiary (current) use of anticoagulants Status: Acute Assessment and Plan: continue Eliquis 5 mg b.i.d. without interruption. (5) Obstructive sleep apnea on CPAP: Code(s): G47.33 - Obstructive sleep apnea (adult) (pediatric); Z99.89 - Dependence on other enabling machines and devices Status: Chronic Assessment and Plan: Continue support with CPAP. (6) Chest pain: Code(s): R07.9 - Chest pain, unspecified Status: Acute Assessment and Plan: Her chest pain is not anginal in my opinion. It is worsened by coughing. Her EKG does look different from previous but I think this is a function of lead placement. She has delayed R-wave progression. Will repeat an EKG this morning but troponins are negative and assuming no significant findings by EKG, she can go home follow-up already scheduled Subjective Date/time seen: 07/30/22 10:10 Interval history: Reason for visit: Atrial fibrillation with RVR Date of service 07/27/2022: Patient feeling okay. Minimal chest discomfort no significant palpitations. Breathing stable. BP a little low at times metoprolol held today. No significant dizziness. remains in AFib will telemetry heart rate 90s to 100s Date of service 07/28/2022: Patient feeling fine this morning. Denies shortness of breath. Blood pressure stable. Remains in AFib as she was yesterday. No new issues overnight. Chest x-ray done yesterday afternoon with probable atelectasis. Afebrile. NPO for possible cardioversion. Date of service 07/30/2022: Still has some chest pain in her right upper chest whenever she coughs. No significant shortness of breath. Wants to go home. Review of Systems Review of Systems: All systems reviewed & are unremarkable except as noted in HPI and below Constitutional: Constitutional: Reports as per HPI and Reports no additional constitutional complaints Eyes: Eyes: Reports as per HPI and Reports no additional eye complaints ENT: Reports system reviewed and no additional complaints, except as documented and Reports as per HPI Cardiovascular: Cardiovascular: Reports as per HPI and Reports no additional cardiovascular complaints Respiratory: Respiratory: Reports as per HPI and Reports no additional respiratory complaints Gastrointestinal: Gastrointestinal: Reports as per HPI and Reports no additional gastrointestinal complaints
--- NOTE | 2022-07-30 10:12 | ECG_ITS ---
Measurements Intervals [place] Rate: 67 P: 35 AR: 173 QRS: 29 QRSD: 88 T: 24 QT: 394 QTc: 417 Interpretive Statements SINUS RHYTHM BORDERLINE ST-T WAVE ABNORMALITY- DIFFUSE LEADS BASELINE ARTIFACT- I, AVR, V5 BORDERLINE ECG COMPARED TO ECG 07/29/2022 12:58:58 NO SIGNIFICANT CHANGES Electronically Signed On 07-30-2022 14:34:26 GRINDER OPERATOR SURFACE TOOL by Juan Luis Mcfadden D.O.
== END 2022-07-30 15:03 | disposition home or self-care (01) | DRG 308 ==
LOC: ANHED 12:07 → ANHIMU 14:02
PROVIDERS: Internal Medicine Cardiovascular Disease; Nurse Practitioner Family; Preventive Medicine Aerospace Medicine; Admitting Provider Internal Medicine; Emergency Provider Emergency Medicine; PCP Nurse Practitioner Family; Visit Provider Internal Medicine Critical Care Medicine
PROC: 5A2204Z Restoration of Cardiac Rhythm, Single (ICD-10-PCS; principal; 2022-07-28 10:30)
DX: I48.0 Paroxysmal atrial fibrillation (principal); J18.9 Pneumonia, unspecified organism; I31.9 Disease of pericardium, unspecified; J98.11 Atelectasis; G47.33 Obstructive sleep apnea (adult) (pediatric); G47.419 Narcolepsy without cataplexy; R05.8 Other specified cough; R07.89 Other chest pain; D58.0 Hereditary spherocytosis; Z79.01 Long term (current) use of anticoagulants; Z90.81 Acquired absence of spleen
CPT/HCPCS: 36415; 71045; 71046; 80048; 80053; 83690; 83735; 84439; 84443; 84484; 85025; 85027; 85055; 85610; 85730; 87636; 92960; 93005; 99285; A9270; J2250; J3010; J7040

== ENCOUNTER 2024-07-11 00:47 | Day surgery (SDC) | payer OTHER, SELFPAY ==
[2024-07-10 13:02] VITALS: BMI 38.5
--- OUTSIDE RECORDS SUMMARY | 2024-07-11 00:49 | XMS_ITS | Continuity of Care Document ---
Author Organization [facility] Address [address] [place] [address] [address] [place] [address] Phone Care Team Providers Care Catalogue And Special Products Manager Name Role Phone Gil Baez Unavailable Unavailable Advance Directives Directive Yes / No Effective Date File Name No Information Encounters Encounter Description Practice Location Reason(s) For Visit Diagnoses Date Provider Providers Copied on Encounter [facility], [address], [place], [place], [id number], [place] tel:[phone] [facility] No Information [address] C[address]o. [address] , [address], [place], [address], [place]. tel:[phone] Family History Family Member Type Diagnosis Age At Onset No Information Payers Payer name Insurance type Covered green party ID Authoriza tion(s) [facility] Commercial CI [id number] Social History Type Description Quantity Date Captured Comments Sex Female Smoking Status No Information Chief Complaint And Reason For Visit No Information Reason For Referral Reason For Referral No Information History Of Present Illness Encounter Date Complaint History Of Prese nt Illness No Information Functional Status Date Functional Assessmen t No Information Instructions Date Instruction Additional Infor mation No Information Assessments Type Assessment Date No Information Patient Care Teams Name Effective Dates (start - stop) Status Members No Information
--- OUTSIDE RECORDS SUMMARY | 2024-07-11 00:49 | XMS_ITS | Clinical Summary ---
Author Organization [facility] [address] [facility] [address] Address [address] [place] [address] Care Team Providers Care Ethylbenzene Cracking Supervisor Name Role Phone MidwayLalita montero Christianne CERTIFIED WELLNESS PROGRAM MANAGER Primary Care Provider + Allergies Active Allergy Reactions Criticality Noted Date Comments Clindamycin Diarrhea Low 07/19/2022 Medications modafiniL (PROVIGIL) 200 mg tablet Take 1 tablet (200 mg total) by mouth 2 (two) times a day 07/02/2022 Active Eliquis 5 mg tabletIndications :Paroxysmal atrial fibrillation (CMS/HCC) (HCC) Take 1 tablet (5 mg total) by mouth 2 (two) times a day 180 tablet 3 05/16/2023 Active metoprolol tartrate (LOPRESSOR) 25 mg immediate release tabletIndications :Paroxysmal atrial fibrillation (CMS/HCC) (HCC) Take 1 tablet (25 mg total) by mouth 2 (two) times a day 60 tablet 11 07/05/2024 07/05/19 26 Active Active Problems Problem Noted Date Diagnosed Date Class 2 obesity due to exces s calories without serious comorbidity with body mass index (BMI) of 38.0 to 38.9 in adult 05/17/2024 Chronic anticoagulation 05/29/2023 H/O pericarditis 05/29/2023 S/P ablation of atrial fibrillation 05/16/2023 Paroxysmal atrial fibrillation (CMS/HCC) 023 Idiopathic hypotension 07/29/2022 Atrial fibrillation (CMS/HCC) 07/28/2022 Resolved Problems Problem Noted Date Diagnosed Date Resolved Date Acute viral pericarditis 07/28/202205/2023 Encounters Date Type Department Care Team Description 07/05/2024 10:00 AM BUTTER GRADER Procedure visit [facility] Cardiology [address] [place] [address] Paroxysmal atrial fibrillation (CMS/HCC) (HCC) 07/04/2024 Telephone [facility] [address] [facility] [address] [place] [address] MD Atrial Fibrillation 05/17/2024 1:15 PM BUTTER GRADER Office Visit [facility] [address] [facility] [address] [place] [address] MD Paroxysmal atrial fibrillation (CMS/HCC) (HCC) (Primary Dx); S/P ablation of atrial fibrillation; H/O pericarditis; Chronic anticoagulation; Class 2 obesity due to excess calories without serious comorbidity with body mass index (BMI) of 38.0 to 38.9 in adult from Last 3 Months Surgical History Surgery Date Site/Laterality Comments SPLENECTOMY When young for herediary spherocytosis CARPAL TUNNEL RELEASE Bilateral SPLENECTOMY, TOTAL 1965 Medical History Medical History Date Comments PAF (paroxysmal atrial fibrillation) (CMS/HCC) ( HCC) 06/2022 Hereditary spherocytosis (CMS/HCC) (HCC) APRYL (obstructive sleep apnea) Pericarditis 06/2022 GERD (gastroesophageal reflux disease) Family History Medical History Relation Name Comments COPD Father Lymphoma Mother Rheum arthritis Mother Relation Name Status Comments Father Mother Social History Tobacco Use Types Packs/Day Years Used Date Smoking Tobacco: Never Smokeless Tobacco: Never Personal Safety Answer Date Recorded Have you ever been in or are you currently in a harmful physical or emotional relationship or is someone making you feel afraid or unsafe? Denies 11/17/2022 Comments Unknown Sex and Gender Information Value Date Recorded Sex Assigned at Not on file Legal Sex Female 11:58 AM BUTTER GRADER Gender Identity Not on file Sexual Orientation Not on file Obstetrics History Last Filed Vital Signs Vital Sign Reading Time Taken Comments Blood Pressure 126/74 07/05/2024 11:01 AM BUTTER GRADER Pulse 129 07/05/2024 11:01 AM BUTTER GRADER Temperature 36.7 C (98 F) 11/17/2022 8:30 AM CDT Respiratory Rate 16 11/28/2023 10:26 AM CDT Oxygen Saturation 91% 07/05/2024 11:01 AM BUTTER GRADER Inhaled Oxygen Concentration - - Weight 105.2 kg (232 lb) 05/17/2024 1:29 PM BUTTER GRADER Height 165.1 cm (5' 5 ) 05/17/2024 1:29 PM BUTTER GRADER Body Mass Index 38.61 05/17/2024 1:29 PM BUTTER GRADER Plan of Treatment Health Maintenance Due Date Last Done Comments Breast Cancer Screening-Mammogram 1954 Colon Cancer Screening-Colonoscopy 1954 Depression Screening 1954 Hepatitis C Screening 1954 Osteoporosis Screening-Bone Density Scan 1954 DTaP/Tdap/Td Vaccine (1 - Tdap) 1965 Hepatitis B Screening 1972 Zoster Vaccine (1 of 2) 2004 Pneumococcal vaccine 65+ (1 of 1 - PCV) 2019 Well Visit 65+ 2019 Fall Risk Assessment 11/18/2023 11/17/2022 Covid-19 Vaccine ( season) 2024 02/09/2022, 04/29/2021, 08/04/2020 Influenza Vaccine (#1) 2024 , 04/29/2021, 07/16/2020 Medical Devices Implanted Type Area Forensic Accountant Device Identifier Shelf Expiration Date Model / Serial / Lot [employer] Vascade Mvp 6-12fr Venous Closure [id number] - [id number] Implanted:Qty : 1 on 11/16/2022 by Joseph Gallegos MD at [facility] Collagen Right: Common Femoral Artery [employer] 07/25/2024 800-612C- 10U / / [id number] [employer] Vascade Mvp 6-12fr Venous Closure [id number] - [id number] Implanted:Qty : 1 on 11/16/2022 by Joseph Gallegos MD at [facility] Collagen Right: Common Femoral Artery [employer] 07/25/2024 800-612C- 10U / / [id number] [employer] Vascade Mvp 6-12fr Venous Closure [id number] - [id number] Implanted:Qty : 1 on 11/16/2022 by Joseph Gallegos MD at [facility] Right: Common Femoral Artery [employer] 07/25/2024 800-612C- 10U / / [id number] Procedures Procedure Name Priority Date/Time Associated Diagnosis Comments ECG 12-LEAD Routine 07/05/2024 11:48 AM BUTTER GRADER Paroxysmal atrial fibrillation (CMS/HCC) (HCC) from Last 3 Months Results * ECG 12 lead (07/05/2024 11:48 AM BUTTER GRADER) us Mickey Street MD ECG ORDERABLES Final Res ult from Last 3 Months Insurance [facility] Care Teams Ethylbenzene Cracking Supervisor Relationship Specialty Start Date End Date Lalita Patten NP [address] [facility] [place] [address] PCP - General Nurse Practitioner 07/12/22
--- OUTSIDE RECORDS SUMMARY | 2024-07-11 00:49 | XMS_ITS | Referral Summary ---
Author Organization [place] [address] [address] [place] [phone] Care Team Providers Care Auction Assistant Name Role Phone Bliss, Lalita Christianne MANAGEMENT ADVISOR Primary Care Provider + Encounters Date Type Department Care Team Description 07/05/2024 10:00 AM CRANE RIGGER Procedure visit [facility] Cardiology [address] [place] [address] [address] [place] [address] Paroxysmal atrial fibrillation (CMS/HCC) (HCC) 07/04/[address] [place] [address] MD Atrial Fibrillation 05/17/2024 1:15 PM CRANE RIGGER Office Visit [place] [address] [place] [address] MD Paroxysmal atrial fibrillation (CMS/HCC) ([facility]) (Primary Dx); S/P ablation of atrial fibrillation; H/O pericarditis; Chronic anticoagulation; Class 2 obesity due to excess calories without serious comorbidity with body mass index (BMI) of 38.0 to 38.9 in adult from Last 3 Months Allergies Active Allergy Reactions Criticality Noted Date [...] Date Resolved Date Acute viral pericarditis 07/28/202205/2023 Social History Tobacco Use Types Packs/Day Years [...] on file Legal Sex Female 11:58 AM CRANE RIGGER Gender Identity Not on file Sexual Orientation Not on file Last Filed Vital Signs Vital Sign Reading Time Taken Comments Blood Pressure 126/74 07/05/2024 11:01 AM CRANE RIGGER Pulse 129 07/05/2024 11:01 AM CRANE RIGGER Temperature 36.7 C (98 F) 11/17/2022 8:30 AM CDT Respiratory Rate 16 11/28/2023 10:26 AM CDT Oxygen Saturation 91% 07/05/2024 11:01 AM CRANE RIGGER Inhaled Oxygen Concentration - - Weight 105.2 kg (232 lb) 05/17/2024 1:29 PM CRANE RIGGER Height 165.1 cm (5' 5 ) 05/17/2024 1:29 PM CRANE RIGGER Body Mass Index 38.61 05/17/2024 1:29 PM CRANE RIGGER Plan of Treatment Not on file Medical Devices Implanted Type Area Holter Technician Device Identifier Shelf Expiration Date Model / Serial / Lot [employer] Vascade Mvp 6-12fr Venous Closure [id number] - [id number] Implanted:Qty : 1 on 11/16/2022 by Joseph Gallegos MD at [facility] Collagen Right: Common Femoral Artery [employer] 07/25/2024 800-612C- 10U / / [id number] [employer] Vascade Mvp 6-12fr Venous Closure [id number] - [id number] Implanted:Qty : 1 on 11/16/2022 by Joseph Gallegos MD at [facility] Collagen Right: Common Femoral Artery [employer] 07/25/2024 800-612C- 10U / / [id number] [employer] Vascade Mvp 6-12fr Venous Closure [id number] - [id number] Implanted:Qty : 1 on 11/16/2022 by Joseph Gallegos MD at [facility] Collagen Right: Common Femoral Artery [employer] 07/25/2024 800-612C- 10U / / [id number] Procedures Procedure Name Priority Date/Time Associated Diagnosis Comments ECG 12-LEAD Routine 07/05/2024 11:48 AM CRANE RIGGER Paroxysmal atrial fibrillation (CMS/HCC) (HCC) from Last 3 Months Results * ECG 12 lead (07/05/2024 11:48 AM CRANE RIGGER) us Mickey Steret MD ECG ORDERABLES Final Res ult from Last 3 Months Insurance [facility] H[facility]/PPO Address: [address] [address] [place] [address] [facility] CHOICE PL[facility] H[facility]/PPO Address: [address] [address] [place] [address] [facility] CHOICE PLUS [facility] H[facility]/PPO Address: [address] [address] [place] [address] Care Teams Auction Assistant Relationship Specialty Start Date End Date Lalita Patten NP [address] [place] [address] PCP - General Nurse Practitioner 07/12/22
--- NOTE | 2024-07-11 12:00 | ECG_ITS ---
Test Date: 2024-07-11 12:32:54 Measurements Intervals [place] Rate: 104 P: 0 NC: 0 QRS: 25 QRSD: 94 T: 36 QT: 345 QTc: 454 Interpretive Statements ATRIAL FIBRILLATION WITH RAPID VENTRICULAR RESPONSE CONSIDER INFERIOR INFARCT, AGE INDETERMINATE BASELINE ARTIFACT- I, II, AVR ABNORMAL ECG No previous ECG available for comparison Electronically Signed On 07-11-2024 12:51:20 SEQUINS SPOOLER by Juan Luis Mcfadden D.O.
[2024-07-11 12:33] VITALS: BP 113/72; PULSE 90; RESP 16; TEMP 36.7; O2SAT 92; BMI 38.5
--- NOTE | 2024-07-11 12:43 | WPDHPUPDATE1 ---
History and Physical Update Update Date/Time: 07/11/24 12:43 History and Physical has been reviewed, including an updated exam of the patient. There are NO changes in the patient's condition. Risks, benefits, and alternatives have been discussed and questions answered. Patient agrees to proceed with procedure.
[2024-07-11 13:02] LABS: Anion Gap 6 mmol/L (4-12); Blood Urea Nitrogen 14 mg/dL (7-17); Calcium 9.3 mg/dL (8.4-10.2); Carbon Dioxide 29 mmol/L (22-30); Chloride 105 mmol/L (98-107); Estimated CRCL calculation 75 ml/min; Estimated Glomerular Filt Rate > 60; Glucose 100 mg/dL (65-110); Magnesium 2.2 mg/dL (1.6-2.3); Potassium 4.2 mmol/L (3.4-5.0); Sodium 140 mmol/L (137-145)
--- NOTE | 2024-07-11 13:19 | WPDANESEPP ---
Anes - Eval Pre Procedure Procedure: Operation Date: 07/11/24 13:30 Proposed Procedures p Trans Esophageal Echo - Randal Hoffman MD s Electrical Cardioversion - Randal Hoffman MD Date/Time: 07/11/24 13:19 Pre Op Diagnosis: A Fib Patient Data Age: 69 Gender: F Height: 1.65 m Weight: 105 kg Last Vital Signs Temp 98.1 F 07/11/24 12:33 Pulse 90 07/11/24 12:33 Resp 16 07/11/24 12:33 BP 113/72 07/11/24 12:33 Pulse Ox 92 07/11/24 12:33 O2 Del Method Room Air 07/11/24 12:33 Allergies Allergy/AdvReac Type Severity Reaction Status Date / Time clindamycin Allergy C Diff Verified 07/11/24 12:31 Home Medications ?Medication ?Instructions ?Recorded ?Confirmed ?Type apixaban 5 mg tablet (Eliquis) 5 mg PO BID 07/12/22 07/11/24 History modafinil 200 mg tablet 200 mg PO BID 3 months #180 tabs 02/22/24 07/11/24 Rx metoprolol tartrate 25 mg tablet 25 mg PO BID 07/10/24 07/11/24 History Laboratory Tests 07/11/24 12:36 Sodium 140 mmol/L (137-145) Potassium 4.2 mmol/L (3.4-5.0) Chloride 105 mmol/L (98-107) Carbon Dioxide 29 mmol/L (22-30) Anion Gap 6 mmol/L (4-12) BUN 14 mg/dL (7-17) Creatinine 0.73 mg/dL (0.7-1.0) Estim Creat Clear Calc 75 ml/min Estimated GFR > 60 (59 - ) Glucose 100 mg/dL (65-110) Calcium 9.3 mg/dL (8.4-10.2) Magnesium 2.2 mg/dL (1.6-2.3) ECG: Afib RVR Patient hx anesthesia problems: none Family hx anesthesia problems: none Results Review: All pre-operative results and documents have been reviewed as part of the pre-operative evaluation. [facility] Past Medical History Medical History Obstructive sleep apnea on CPAP Chronic anticoagulation Paroxysmal atrial fibrillation Esophageal stricture History of esophageal dilatation. Pericarditis Had pericarditis when young, and again in 06/2022. 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 History of esophageal dilatation Family History Family History Father Family history of emphysema Mother Lymphoma Macula lutea degeneration Acute rheumatoid arthritis Sibling Atrial fibrillation Cerebrovascular accident Social History Social History Social History: Surrogate medical decision maker: Nav Arreagareena, spouse. Code status: Full code. Smoking status: Never smoker Second hand tobacco smoke exposure: No Alcohol intake: never Substance use: never Substance use type: does not use Lack of Transportation: No Lack of Food: Never True Current Housing: I Have Housing Concerned About Future Housing: No Difficulty Paying Gas/Electric Bills: No Difficulty Paying for Meds: No Currently Unemployed: No Education: High School Diploma/GED Difficulty w/ Childcare or Family Care: No Living arrangements: with family Spiritual care concerns: No Exam Day of Procedure 07/11/24 13:19
--- NOTE | 2024-07-11 13:30 | ECG_ITS ---
Test Date: 2024-07-11 13:52:51 Measurements Intervals [place] Rate: 62 P: 42 HI: 170 QRS: 9 QRSD: 96 T: 22 QT: 412 QTc: 422 Interpretive Statements SINUS RHYTHM INCOMPLETE RIGHT BUNDLE BRANCH BLOCK VOLTAGE CRITERIA FOR LVH BORDERLINE ECG Compared to ECG 07/11/2024 12:32:54 Atrial fibrillation no longer present Electronically Signed On 07-11-2024 14:46:49 TANK FURNACE OPERATOR by Juan Luis Mcfadden D.O.
--- NOTE | 2024-07-11 13:52 | WPDTECDV ---
YOCASTA with Cardioversion Date of procedure: 07/11/24 Procedure Type: Transesophageal echocardiogram with cardioversion Diagnosis: Paroxysmal atrial fibrillation Indications: 69-year-old woman with symptomatic paroxysmal atrial fibrillation is here for YOCASTA guided cardioversion. Description of Procedure: Date Of Procedure: 07/11/2024 Brief History Of Present Illness: 69-year-old woman symptomatic paroxysmal atrial fibrillation is here for YOCASTA guided cardioversion. Procedure In Detail: After verbal and written informed consent was obtained, the patient risks, benefits, and alternatives explained in detail. The patient agreed to proceed with the plan of care as outlined above.?The patient was evaluated at bedside in [facility].?The posterior oropharynx, neck, and jaw angle all within normal limits on examination. Lungs were clear to auscultation. See pre-sedation note for further details. The patient was then placed in the appropriate 30 to 45 degree angle supine position.?Patient was monitored throughout the study with telemetry, oxygen saturation, end-tidal CO2 monitoring, blood pressure, heart rate, and respirations.?The posterior hypopharynx was then locally anesthetized using repeated administration of Hurricaine spray. After local anesthetic of the posterior hypopharynx was achieved and the oral bite block placed, anesthesia provided sedation.?After confirmation of adequate sedation by Anesthesia, the transesophageal echocardiogram probe was advanced through the oral bite block into the posterior hypopharynx and into the esophagus easily and without complication.?Multiple, multiplanar echocardiographic images were obtained in multiple standard re-projections.?Pulsed wave, continuous-wave, and color-flow Doppler were utilized in conjunction with this study.?At the conclusion of the study, the transesophageal echocardiogram probe was removed easily and without complication. The patient tolerated the procedure well without difficulty.?Patient was in atrial fibrillation throughout the study. Moderate Sedation / Anesthesia Administration: Provided by Anesthesia. Please refer to Anesthesia documentation. FINDINGS: LEFT VENTRICLE: The left ventricle is normal in size and systolic function. RIGHT VENTRICLE:? The right ventricle is normal in size and systolic function. LEFT ATRIUM: The left atrium is dilated. RIGHT ATRIUM: The right atrium is normal size. INTERATRIAL SEPTUM: Interatrial septum is anatomically normal without evidence of shunt with color-flow Doppler. MITRAL VALVE: Mitral valve is anatomically normal with preserved leaflet excursion and mild regurgitation. AORTIC VALVE: The aortic valve was an anatomically normal 3 leaflet structure with normal leaflet excursion and no regurgitation identified. TRICUSPID VALVE: The tricuspid valve is anatomically normal with normal leaflet excursion with trivial regurgitation identified.? No mobile elements identified. PULMONIC VALVE: Pulmonic valve was not well visualized, however, trivial regurgitation was identified.? LEFT ATRIAL APPENDAGE: No thrombus or vegetation identified. ? LEFT UPPER PULMONARY VEIN: No significant systolic flow reversal. PERICARDIUM: The pericardium was anatomically normal without significant pericardial effusion. ? AORTA: Mild atherosclerotic disease. After exclusion of left atrial appendage thrombus, the probe was removed. 200 joules was delivered via synchronized cardioversion with restorationist of sinus rhythm. Complications: None Sedation: Provided by Anesthesia. Please refer to Anesthesia documentations Findings: Normal biventricular size and systolic function. No significant valvular disease. No left atrial appendage thrombus. Atrial fibrillation Conclusion: After exclusion of left atrial appendage thrombus, the transesophageal echocardiogram probe was removed followed by successful synchronized cardioversion at 200 joules with restorationist of sinus rhythm. Patient is to continue Eliquis 5 mg p.o. b.i.d. and follow-up with Dr. Street.
[2024-07-11 14:10] VITALS: BP 89/56; PULSE 64; RESP 17; TEMP 36.7; O2SAT 99
[2024-07-11 14:25] VITALS: BP 94/63; PULSE 62; RESP 17; O2SAT 98
[2024-07-11 14:40] VITALS: BP 93/59; PULSE 63; RESP 17; O2SAT 99
[2024-07-11 14:55] VITALS: BP 112/67; PULSE 68; RESP 17; O2SAT 95
[2024-07-11 15:10] VITALS: BP 101/60; PULSE 68; RESP 17; O2SAT 95
--- NOTE | 2024-07-12 10:43 | PC.NURSE ---
Pt had no complaint or questions during post CCL procedure call. Pt doing well post YOCASTA with CV. Pt will call cardiology office to confirm f/u appointment. States service was good.
== END 2024-07-11 15:28 | disposition home or self-care (01) ==
PROVIDERS: Visit Provider Internal Medicine
PROC: (CPT 93312; principal; 2024-07-11 13:30)
PROC: 5A2204Z Restoration of Cardiac Rhythm, Single (ICD-10-PCS; 2024-07-11 13:30)
DX: I48.0 Paroxysmal atrial fibrillation (principal); I25.10 Atherosclerotic heart disease of native coronary artery without angina pectoris; I08.1 Rheumatic disorders of both mitral and tricuspid valves; K21.9 Gastro-esophageal reflux disease without esophagitis; D58.0 Hereditary spherocytosis; G47.33 Obstructive sleep apnea (adult) (pediatric); E66.812 Obesity, class 2; E66.09 Other obesity due to excess calories; Z68.38 Body mass index [BMI] 38.0-38.9, adult; Z79.01 Long term (current) use of anticoagulants; Z99.89 Dependence on other enabling machines and devices; Z98.890 Other specified postprocedural states; Z86.79 Personal history of other diseases of the circulatory system; Z87.19 Personal history of other diseases of the digestive system; Z80.7 Family history of other malignant neoplasms of lymphoid, hematopoietic and related tissues; Z82.49 Family history of ischemic heart disease and other diseases of the circulatory system
CPT/HCPCS: 36415; 80048; 83735; 92960; 93312; 93320; 93325

== ENCOUNTER 2025-01-12 17:44 | Emergency (ER) | payer OTHER, SELFPAY ==
--- NOTE | 2025-01-12 17:50 | ED_ITS ---
HPI - URI/Sore Throat General Chief Complaint: Upper Respiratory Infection Stated Complaint: Cold Symptoms Time Seen by Provider: 01/12/25 17:53 Source: patient, RN notes reviewed and old records reviewed Mode of arrival: ambulatory Limitations: no limitations History of Present Illness HPI Narrative: For 6-year-old female presents with a 9 day history of URI symptoms. Reports that the 1st couple days she felt feverish and had chills last Monday. Concerns for left ear pain, sore throat. Patient has sinus congestion. Has taken Tylenol, cough medicine as well as Claritin D. Related Data Home Medications ?Medication ?Instructions ?Recorded ?Confirmed ?Last Taken ?Type apixaban 5 mg tablet (Eliquis) 5 mg PO BID 07/12/22 12/11/24 07/11/24 History sotalol 80 mg tablet 80 mg PO BID 12/11/24 12/11/24 Unknown History metoprolol tartrate 25 mg tablet mg 01/12/25 Unknown History Allergies Allergy/AdvReac Type Severity Reaction Status Date / Time clindamycin Allergy C Diff Verified 01/12/25 17:51 Review of Systems Review of Systems: All systems reviewed & are unremarkable except as noted in HPI and below Constitutional: Constitutional: Reports as per HPI ENT: Reports as per HPI, Reports otalgia and Reports sore throat Cardiovascular: Cardiovascular: Reports no additional cardiovascular co mplaints, Denies chest pain and Denies dyspnea Respiratory: Respiratory: Reports no additional respiratory complaints, Denies chest congestion, Denies cough and Denies dyspnea Musculoskeletal: Musculoskeletal: Reports no additional musculoskeletal complaints Integumentary/Breasts: Skin/Breast: Reports system reviewed and no additional complaints, except as docu PMFSH Past Medical History Medical History Obstructive sleep apnea on CPAP Chronic anticoagulation Paroxysmal atrial fibrillation Esophageal stricture History of esophageal dilatation. Pericarditis Had pericarditis when young, and again in 06/2022. 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 History of esophageal dilatation Family History Family History Father Family history of emphysema Mother Lymphoma Macula lutea degeneration Acute rheumatoid arthritis Sibling Atrial fibrillation Cerebrovascular accident Social History Social History Social History: Surrogate medical decision maker: Nav Galvan, spouse. Code status: Full code. Smoking status: Never smoker Second hand tobacco smoke exposure: No Alcohol intake: never Substance use: never Substance use type: does not use Do You Feel Safe in your Home?: Yes Lack of Transportation: No Lack of Food: Never True Current Housing: I Have Housing Concerned About Future Housing: No Difficulty Paying Gas/Electric Bills: No Difficulty Paying for Meds: No Currently Unemployed: No Education: High School Diploma/GED Difficulty w/ Childcare or Family Care: No Living arrangements: with family Spiritual care concerns: No Comments At the time of my signature, I reviewed and agree with the nursing past medical, surgical, social, and family history. There is no relevant family history pertinent to the patient complaint. Exam Const: General: cooperative, no acute distress, well developed, alert, tired appearing, uncomfortable and well nourished Nutritional Appearance: well nourished Orientation/consciousness: patient oriented x3 Limitations: no limitations HENMT: Head: normal to inspection Ears: hearing grossly normal bilaterally, external ears normal, TM's normal bilaterally, EAC's normal, mastoids normal and no periauricular adenopathy Face/Nose/Sinus: Normal external nose present, Normal nares present and Normal nasal mucous membranes and turbinates present Face and sinus: normal facial exam and face symmetric Mouth: Yes Normal oral and palatal mucosa present, Yes lip normal, Yes tongue normal and Yes moist mucous membranes Throat: tonsils normal, uvula midline, postnasal drainage and no uvular edema Eyes: General: appearance normal, both eyes and all related structures Alignment and Position: alignment normal Neck: Neck: normal visual inspection, full ROM, no lymphadenopathy and no meningeal signs Chest: Chest palpation & inspection: normal inspection of the chest Resp: Effort & Inspection: normal respiratory effort and able to speak in complete sentences Auscultation: clear to auscultation bilaterally, no crackles, no rales, no rhonchi and no wheezes Cardio: Rate: regular rate Skin: General skin exam: normal color and no rashes or lesions noted Neuro: General: patient oriented x3, gait normal, moves all extremities and no meningeal signs Cognition (Neuro): normal cognition Speech: normal speech Gait exam (Neuro): Normal gait present Extrem: General: normal to inspection, full ROM, capillary refill normal and normal gait Psych: Appearance: grossly normal and well kempt Mental Status: mental status grossly normal Speech and movement: Normal speech and movement present and Clear speech present Affect: normal affect Attitude: cooperative Course Course Level of Care: Express Care Visit Vital Signs Vital signs: Vital Signs Oxygen Delivery Room Air 01/12/25 17:51 Temperature 96.5 F L 01/12/25 17:54 Pulse Rate 71 01/12/25 17:54 Respiratory Rate 16 01/12/25 17:54 Blood Pressure 120/80 01/12/25 17:54 Pulse Oximetry 95 01/12/25 17:54 Oxygen Delivery Room Air 01/12/25 17:51 Reviewed MDM - URI/Sore Throat MDM Narrative Medical decision making narrative: Patient sitting in exam room. Patient is nontoxic, vitals stable. Patient presents with a 9 day history of chills, sore throat, left ear pain. As well as sinus congestion. Reports that she did have COVID in September. Strep test is negative Discussed due to her age, length of symptoms will cover with an antibiotic which she has declined at this time. Discussed [id number] treatments. Discussed that due to her medications, past medical history taking Sudafed is not advised. Patient is appropriate for outpatient treatment with close follow-up Discharge instructions reviewed with patient, as well as provided in writing per nursing staff. The instructions also include specific and strict return/GO TO THE ER as well as f/u information. All questions have been answered, and the patient deny any further questions with discharge and discharge plan. Some parts of this dictation were generated by voice recognition software and may contain typographical and/or grammatical inaccuracies. Differential Diagnosis Differential diagnosis: Likely upper respiratory infection, otitis media, sinusitis, viral infection, bronchitis, influenza and pharyngitis Lab Data Labs: Lab Results 01/12/25 Range/Units 18:10 POC Grp A Strep Screen Negative (Negative) Reviewed Critical Care Time Critical Care Time Critical Care Time: No Discharge Plan Discharge Clinical Impression: Upper respiratory infection, PND (post-nasal drip) Patient Disposition: Home Condition: Stable Instructions: Sinusitis (ED), Upper Respiratory Infection (ED), Postnasal Drip (DC) Additional Instructions: Your rapid strep swab was negative today at [facility]. A throat culture will be sent to the laboratory for further testing. If the test is positive, you will receive a phone call within 48 hours and an appropriate antibiotic will be initiated at that time. It is very important to treat your symptoms. Drink plenty of water, Gatorade, Pedialyte, ice pops or Jell-O. Please read labels to make sure they are safe with the medication you are taking. -take Tylenol as needed for aches, pains and fever per package instructions -Antihistamine medication such as Zyrtec/Claritin/Selina during the day can help improve symptoms. Do not take anything with the letter D associated with it -doing daily nasal irrigations can help relieve pressure your sinuses. Things like a Neti pot -Use Flonase twice a day for 5 days then daily to help reduce the inflammation and dry up your sinuses. -You can also use Coricidin HBP. Be sure to drink plenty of water with this medication at least 8 ounces with every dose and it is important to drink 8 to 10 glasses of water per day. Water is a natural decongestant -Eat and drink things that are easy to swallow, like tea or soup, or popsicles. -Oral rinses such as: Salt water gargles and/or may use topical anesthetic (eg. Chloraseptic spray) or lozenges to relieve dryness or throat pain). -Frequent hand washing or hand it investment/portfolio manager is one of the best ways to prevent spread of infection. -Using a vaporizer or humidifier at night will also help thin secretions and he lp with coughing up phlegm. -Follow up with primary care provider in 7-10 days if condition is not improving - For new or worsening symptoms go directly to the nearest ER Patient Language: Greek Prescriptions: No Action metoprolol tartrate 25 mg tablet sotalol 80 mg tablet 80 mg PO BID modafinil 200 mg tablet 200 mg PO BID Qty: 60 0RF Eliquis 5 mg tablet 5 mg PO BID Follow-up/Referrals: PHYSICIAN,DIGITAL ASSET COORDINATOR [Primary Care Provider] - Stand Alone Forms: Work/School Release IP Time of Disposition: 18:15
[2025-01-12 17:54] VITALS: BP 120/80; PULSE 71; RESP 16; TEMP 35.8; O2SAT 95
[2025-01-12 18:12] LABS: EDSTREPNEGPOS1 Negative (Negative)
== END 2025-01-12 18:18 | disposition home or self-care (01) ==
PROVIDERS: Emergency Provider Nurse Practitioner
DX: J06.9 Acute upper respiratory infection, unspecified (principal); R09.82 Postnasal drip; G47.33 Obstructive sleep apnea (adult) (pediatric); I48.0 Paroxysmal atrial fibrillation; G47.419 Narcolepsy without cataplexy; Z79.01 Long term (current) use of anticoagulants
CPT/HCPCS: 87081; 87880; 99213; G0463